=== PATIENT | male | born 1935 | race Caucasian/White ===

== ENCOUNTER → 2016-06-27 | Outpatient (CLI) | payer MEDICARE, BC ==
[2016-04-16 17:10] VITALS: BP 128/68
[~2016-06-27] MED LIST: AMLO2.5T2 PO; ASPI-482 PO; ATOR10TA60 PO; CARB1TAB5 PO; CIPR500S3 PO; LEVO75TA5 PO; PHEN-373 PO
--- NOTE | 2016-06-27 16:22 | CARD ---
APPROVED REPORT EXAM: Two-dimensional and M-mode echocardiogram with Doppler and color Doppler. Other Information Quality : GoodHR: 59bpm Rhythm : NSR INDICATION Cardiac Disease: CAD 2D DIMENSIONS RVDd4.3 (2.9-3.5cm)Left Atrium(2D)4.4 (1.6-4.0cm) IVSd1.0 (0.7-1.1cm)Aortic Root(2D)3.0 (2.0-3.7cm) LVDd5.4 (3.9-5.9cm)LVOT Diameter2.1 (1.8-2.4cm) PWd1.1 (0.7-1.1cm)LVDs4.1 (2.5-4.0cm) FS (%) 24.7 %SV69.2 ml LVEF(%)48.5 (>50%) Aortic Valve AoV Peak Jesus.105.1cm/sAoV VTI21.1cm AO Peak GR.4.4mmHgLVOT Peak Jesus.94.1cm/s LVOT VTI 17.35cmAO Mean GR.3mmHg AMAN (VMAX)2.84jn3ICO (VTI)2.75cm2 Mitral Valve MV E Bwuitnrx27.3cm/sMV DECEL WKFB314rj MV A Iiekiyhl49.8cm/sMV PFT463wy E/A Ratio0.5MV A Yoltyrue298ae MVA (PHT)1.59cm2 TDI E/Lateral E'4.8E/Medial E'7.5 Pulmonary Valve PV Peak Zkioftqj554.4cm/sPV Peak Grad.4mmHg RVOT VTI8.6cm Tricuspid Valve TR P. Hmqnxvls606rr/sRAP NEZZRHNC3whHj TR Peak Gr.93gkGvVWRA86geHf Pulmonary Vein S1 Iudfiqxe17.1cm/sD2 Rvyjzazw38.3cm/s PVa leywljtd264npnc LEFT VENTRICLE The left ventricle is normal size. There is normal left ventricular wall thickness. Left ventricle sy stolic function is low normal. The Ejection Fraction is 45-50%. There is moderate hypokinesis in the basal and mid-inferior wall. Transmitral Doppler flow pattern is Grade I-abnormal relaxation pattern. There is no ventricular septal defect visualized. RIGHT VENTRICLE The right ventricle is normal size. There is normal right ventricular wall thickness. The right ventr icular systolic function is normal. ATRIA The left atrium is mildly dilated. The right atrium size is normal. The interatrial septum is intact with no evidence for an atrial septal defect or patent foramen ovale as noted on 2-D or Doppler imagi ng. AORTIC VALVE The aortic valve is mildly thickened. The aortic valve is trileaflet. Doppler and Color Flow revealed no significant aortic regurgitation. There is no significant aortic valvular stenosis. MITRAL VALVE The mitral valve is normal in structure. There is no evidence of mitral valve prolapse. There is no m itral valve stenosis. Doppler and Color Flow revealed trace mitral regurgitation. TRICUSPID VALVE The tricuspid valve is normal in structure. Doppler and Color Flow revealed mild tricuspid regurgitat ion. There is no pulmonary hypertension. The PA pressure was estimated at 27 mmHg. There is no tricus pid valve stenosis. PULMONIC VALVE The pulmonary valve is normal in structure. Doppler and Color Flow revealed mild pulmonic valvular re gurgitation. There is no pulmonic valvular stenosis. GREAT VESSELS The aortic root is normal in size. The ascending aorta is mildly dilated at 3.54cm. Normal pulmonary venous flow (Doppler). The IVC is normal in size and collapses >50% with inspiration. PERICARDIAL EFFUSION There is no pleural effusion. There is no evidence of significant pericardial effusion. Critical Notification Critical Value: No <Conclusion> There is moderate hypokinesis in the basal and mid-inferior wall. The Ejection Fraction is 45-50%. Transmitral Doppler flow pattern is Grade I-abnormal relaxation pattern. Trace mitral regurgitation. Mild tricuspid regurgitation. The PA pressure was estimated at 27 mmHg. There is no evidence of significant pericardial effusion.
== END | disposition home or self-care (01) ==
LOC: ECHO 10:51
PROVIDERS: ATTEND Internal Medicine Cardiovascular Disease
DX: I25.10 Atherosclerotic heart disease of native coronary artery without angina pectoris (principal); I34.0 Nonrheumatic mitral (valve) insufficiency; I37.1 Nonrheumatic pulmonary valve insufficiency; I07.1 Rheumatic tricuspid insufficiency
CPT/HCPCS: 93306

== ENCOUNTER → 2017-01-02 | Outpatient (CLI) | payer MEDICARE ==
[2016-04-16 17:10] VITALS: BP 128/68
[~2017-01-02] MED LIST changes: -PHEN-373 PO; +PHEN-444 PO; +REGADENOSON 0.4 MG/5 ML DISP.SYRIN. IV ONE
--- NOTE | 2017-01-02 14:11 | RAD ---
APPROVED REPORT Test Type: Pharmacological Stress Nurse/Tech: Pari Yusuf R.N. Test Indications: CAD Cardiac History: CABG,HYPOTENSION, HTN, BIGEMINY, TRIGEMINY Medications: See Electronic Medical Record Medical History: See Electronic Medical Record Resting ECG: SR W/ PAC'S AND PVC'S Resting Heart Rate: 65 bpm Resting Blood Pressure: 141/74mmHg Pretest Chest Pain: No chest pain Nurse/Tech Notes S1S2, LUNGS CTA Consent: The procedure was explained to the patient in lay terms. Informed consent was witnessed. Alejandro eout was entered into [employer]. History and Stress Test performed by KIM Cabrera, MILLICENT (R) (N) Pharm. Details Pharmacologic stress testing was performed using 0.4mg per 5ml of regadenoson given intravenously ove r 7-10 seconds. Stress Symptoms Dyspnea,Dizziness POST EXERCISE Reason for Termination: Infusion complete Max HR: 83 bpm Max Blood Pressure: 151/81mmHg Blood Pressure response to exercise: Abnormal blood pressure response during stress. B/P DROPPED QUIT E A BIT AFTER LEXISCAN GIVEN WHICH CAUSED DIZZINESS Heart Rate response to exercise: WNL Chest Pain: No. Arrhythmia: No. fnot from baseline noted above ST Change: No. INTERPRETATION Stress EKG Conclusion: Baseline EKG showed sinus rhythm with PVCs. Nondiagnostic changes at peak stre ss. No significant arrhythmias. Imaging Protocol IMAGE PROTOCOL: Rest Tc-99m/stress Tc-99m 1 day Rest: Stress: Viability: Radiopharm.Tc99m RgywyjwchCj81u Sestamibi Dose11.1mCi 33.1mCi Duration 15min. 10min. Img Date 01/02/2017 01/02/2017 Inj-Img Xzaf87wpt. 75min. Rest Admin Site:IV - Left ForearmAdministrator:RT Wyatt (R)(N) Stress Admin Site: IV - Left ForearmAdministrator: KIM Cabrera, MILLICENT (R)(N) STRESS DATA End Diast. Vol.123.0mlAv. Heart Rate67.0bpm End Syst. Vol.51.0mlCO Index BSA4.8L/min Myocardial Iwtu145.0gEject. Himsbzlv95.0% Stress Rates Pk. Fill Rate2.08EDV/secLVtime Pk. Fill 81.32msec Pk. Empty Rate2.22ESV/secLVtime Pk. Icztq672.72msec /3 Pk. Fill1.35EDV/sec Stress Scores Regional WT0.00Summed WT14.00 Regional WM0.00Summed WM16.00 LV Perfusion Scintigraphic images showed moderate sized fixed defect involving the base to mid inferior wall consi stent with previous myocardial infarction without any reversibility. Wall Motion Basal inferior wall hypokinesis with ejection fraction calculated at 59%. LV Perf. Quant 17 Seg. SSS10.00 17 Seg. SRS8.00 17 Seg. SDS2.00 Stress Defect Extent (% LAD)0.00Rest Defect Extent (% LAD)0.00Rev. Defect Extent (% LAD)0.00 Stress Defect Extent (% LCX) 27.50Rest Defect Extent (% LCX)23.80Rev. Defect Extent (% LCX)7.50 Stress Defect Extent (% RCA)41.10Rest Defect Extent (% RCA)46.70Rev. Defect Extent (% RCA)0.00 Stress Defect Extent (% SNEHAL)18.00Rest Defect Extent (% SNEHAL)17.00Rev. Defect Extent (% SNEHAL)2.00 Conclusion 1. Regadenoson cardioisotope stress test showed moderate infarct involving the base to mid inferior w all without any significant ischemia. 2. Basal inferior wall hypokinesis with ejection fraction calculated at 59%. 3. Low risk for cardiac events.
== END | disposition home or self-care (01) ==
LOC: NM 08:39
PROVIDERS: ATTEND Internal Medicine Cardiovascular Disease
DX: I25.10 Atherosclerotic heart disease of native coronary artery without angina pectoris (principal); I10 Essential (primary) hypertension; Z95.1 Presence of aortocoronary bypass graft; Z79.01 Long term (current) use of anticoagulants
CPT/HCPCS: 78452; 93017; 96374; 96375; 96376; A9500; J2785

== ENCOUNTER → 2018-01-28 | Outpatient (CLI) | payer MEDICARE ==
[2016-04-16 17:10] VITALS: BP 128/68
[~2018-01-28] MED LIST changes: -REGADENOSON 0.4 MG/5 ML DISP.SYRIN. IV ONE
--- NOTE | 2018-01-28 10:08 | CARD ---
MR#: [id number] Date of Study: 01/28/2018 Ordering Physician: MAGALY OLMOS, Referring Physician: MAGALY OLMOS, Tech: Eboni Basilio APPROVED REPORT EXAM: Two-dimensional and M-mode echocardiogram with Doppler and color Doppler. Other Information Quality : AverageHR: 65bpm INDICATION CAD Parkinsons RISK FACTORS Hyperlipidemia 2D DIMENSIONS RVDd4.1 (2.9-3.5cm)Left Atrium(2D)4.6 (1.6-4.0cm) IVSd1.5 (0.7-1.1cm)Aortic Root(2D)3.0 (2.0-3.7cm) LVDd5.4 (3.9-5.9cm)LVOT Diameter2.4 (1.8-2.4cm) PWd1.1 (0.7-1.1cm)IVSs3.7 (0.8-1.2cm) Aortic Valve AoV Peak Jesus.96.7cm/sAoV VTI14.5cm AO Peak GR.3.7mmHgLVOT Peak Jesus.80.0cm/s LVOT VTI 15.35cmAO Mean GR.2mmHg AMAN (VMAX)2.06gk7ZZO (VTI)4.81cm2 Mitral Valve MV E Qwfyclhl68.0cm/sMV DECEL HXLL388sr MV A Yxualnvq13.3cm/sMV RVG23vu E/A Ratio0.6MVA (PHT)3.09cm2 TDI E/Lateral E'6.6E/Medial E'8.1 Pulmonary Valve PV Peak Pjbavqjc07.4cm/sPV Peak Grad.2mmHg Tricuspid Valve TR P. Jnpamphj184ou/sTR Peak Gr.20mmHg Pulmonary Vein S1 Hilqvgxi69.1cm/sD2 Umfnvpdz64.9cm/s PVa zdybysos542lrxc LEFT VENTRICLE The left ventricle is normal size. There is borderline concentric left ventricular hypertrophy. Base to mid inferior wall hypokinesis. The Ejection Fraction is 50-55%. Transmitral Doppler flow pattern i s Grade I-abnormal relaxation pattern. RIGHT VENTRICLE The right ventricle is normal size. There is normal right ventricular wall thickness. The right ventr icular systolic function is normal. ATRIA The left atrium size is normal. The right atrium size is normal. The interatrial septum is intact wit h no evidence for an atrial septal defect or patent foramen ovale as noted on 2-D or Doppler imaging. AORTIC VALVE The aortic valve is mildly thickened but opens well. Doppler and Color Flow revealed no significant a ortic regurgitation. There is no significant aortic valvular stenosis. MITRAL VALVE The mitral valve is thickened but opens well. There is no mitral valve stenosis. Doppler and Color-fl ow revealed trace mitral regurgitation. TRICUSPID VALVE The tricuspid valve is normal in structure and function. Doppler and Color Flow revealed trace tricus pid regurgitation. There is no tricuspid valve stenosis. PULMONIC VALVE The pulmonic valve is not well visualized. Doppler and Color Flow revealed no pulmonic valvular regur gitation. GREAT VESSELS The aortic root is normal in size. Normal pulmonary venous flow (Doppler). The IVC was not visualized . PERICARDIAL EFFUSION There is no evidence of significant pericardial effusion. Critical Notification Critical Value: No <Conclusion> Base to mid inferior wall hypokinesis. The Ejection Fraction is 50-55%. Transmitral Doppler flow pattern is Grade I-abnormal relaxation pattern. Trace mitral regurgitation. Trace tricuspid regurgitation. There is no evidence of significant pericardial effusion. Signed by : Magaly Olmos, Electronically Approved : 01/28/2018 10:06:32
== END | disposition home or self-care (01) ==
LOC: ECHO 08:39
PROVIDERS: ATTEND Internal Medicine Cardiovascular Disease
DX: I25.10 Atherosclerotic heart disease of native coronary artery without angina pectoris (principal); E78.5 Hyperlipidemia, unspecified
CPT/HCPCS: 93306

== ENCOUNTER 2018-11-10 07:53 | Emergency (ER) | payer MEDICARE ==
[~2018-11-10] VITALS: Ht 185.4 cm; Wt 83.9 kg
[2018-11-10] MEDS: IV NORMAL SALINE 1000ML BAG 1,000 ML IV ONE (08:42)
[2018-11-10 08:58] LABS: BASO % 0 % (0-3); EOS # 0.1 x10^3/uL (0.0-0.7); EOS % 1 % (0-3); HEMATOCRIT 43.3 % (39.0-53.0); HEMOGLOBIN 15.1 g/dL (13.0-17.5); LYMPH # 3.5 x10^3/uL (1.0-4.8); LYMPH % 43 % (24-48); MEAN CORPUSCULAR HEMOGLOBIN 32 pg (25-35); MEAN CORPUSCULAR HGB CONC 35 g/dL (31-37); MEAN CORPUSCULAR VOLUME 92 fL (79-100); MONO # 0.3 x10^3/uL (0.0-1.1); MONO % 4 % (0-9); NEUT # 4.2 x10^3/uL (1.8-7.7); NEUT % 52 % (31-73); PLATELET COUNT 140 x10^3/uL (140-400); RED BLOOD COUNT 4.72 x10^6/uL (4.30-5.70); RED CELL DISTRIBUTION WIDTH 14.5 % (11.5-14.5); WHITE BLOOD COUNT 8.2 x10^3/uL (4.0-11.0)
[2018-11-10 09:03] LABS: BILIRUBIN,URINE SMALL (NEG); CLARITY,URINE CLEAR; COLOR,URINE AMBER; NITRITE,URINE NEGATIVE (NEG); PROTEIN,URINE 100 mg/dL (NEG-TRACE)
[2018-11-10 09:03] LABS: CALCIUM 8.6 mg/dL (8.5-10.1); GFR 71.2; POTASSIUM 3.6 mmol/L (3.5-5.1)
[2018-11-10 09:12] LABS: BACTERIA,URINE MOD /HPF (0-FEW)
[2018-11-10 09:13] LABS: RBC,URINE OCC /HPF (0-2)
--- NOTE | 2018-11-10 12:50 | PHYS DOC ---
Past Medical History Past Medical History: CAD, IBS, Other Additional Past Medical Histor: PROSTATE CANCER, HEART ARRTHYMIAS,MRSA, CDiff, skin cancer, Parkinson's Past Surgical History: Appendectomy, Cholecystectomy, Coronary Bypass Surgery, Pacemaker Additional Past Surgical Histo: pacemaker removal s/p MRSA Alcohol Use: None Drug Use: None Adult General Chief Complaint Chief Complaint: SYNCOPE HPI HPI Patient is a 83 year old m who presents to the ED after syncopal episode. Patient with history of Parkinson's and orthostatic hypotension. Patient with recent hospitalization after syncopal episode. Patient takes midodrine 10mg TID for hypotension. Seen in neurology clinic yesterday at [facility] with normal blood pressures and no complaints. No medication changes. Patient here with complaints of near syncopal episode. Patient complains visco sity felt lightheaded and dizzy. Blood pressure systolic was in the 70s and spouse brought him to the ER. Patient currently denies any symptoms. No nausea, vomiting, diarrhea. No fever. No cough. No dysuria. States that he is feeling better. Patient has some chronic dizziness/lightheadedness at baseline. No chest pain. No palpitations. Review of Systems Review of Systems Constitutional: Denies fever or chills [] Eyes: Denies change in visual acuity, redness, or eye pain [] HENT: Denies nasal congestion or sore throat [] Respiratory: Denies cough or shortness of breath [] Cardiovascular: No chest pain, no palpitations, no LE edema GI: Denies abdominal pain, nausea, vomiting, bloody stools or diarrhea [] : Denies dysuria or hematuria [] Musculoskeletal: Denies back pain or joint pain [] Integument: Denies rash or skin lesions [] Neurologic: Denies headache, focal weakness or sensory changes [] Endocrine: Denies polyuria or polydipsia [] All other systems were reviewed and found to be within normal limits, except as documented in this note. Current Medications Current Medications Current Medications Medications (Trade) Dose Ordered Sig/Erika Start Time Stop Time Status Last Admin Dose Admin Ciprofloxacin (Cipro) 500 mg 1X ONCE 11/10/18 13:00 11/10/18 13:01 DC 11/10/18 13:42 500 MG Sodium Chloride 1,000 ml @ 1,000 mls/hr 1X ONCE 11/10/18 09:00 11/10/18 09:59 DC 11/10/18 08:42 1,000 MLS/HR Allergies Allergies Allergies Coded Allergies Type Severity Reaction Last Updated Verified meperidine Allergy Intermediate 04/16/16 Yes Physical Exam Physical Exam Constitutional: frail, appears stated age, non-toxic appearing HENT: Normocephalic, atraumatic, Eyes: PERRLA, EOMI, Neck: Normal range of motion, no tenderness, supple, no stridor. [] Cardiovascular:Heart rate regular rhythm, no murmur [] Lungs & Thorax: Bilateral breath sounds clear to auscultation [] Abdomen: Bowel sounds normal, soft, no tenderness, no masses, no pulsatile masses. [] Skin: Warm, dry, no erythema, no rash. [] Back: No tenderness, no CVA tenderness. [] Extremities: No tenderness, no cyanosis, no clubbing, ROM intact, no edema. [] Neurologic: Alert and oriented X 3, normal motor function, normal sensory function, no focal deficits noted. mild resting tremor[] Psychologic: Affect normal, judgement normal, mood normal. [] Current Patient Data Vital Signs Vital Signs Date Time Temp Pulse Resp B/P (MAP) Pulse Ox O2 Delivery O2 Flow Rate FiO2 11/10/18 13:20 64 192/100 (130) 92 Room Air 11/10/18 07:54 97.5 18 97.5 Lab Values Laboratory Tests Test 11/10/18 08:40 11/10/18 08:55 11/10/18 11:55 White Blood Count 8.2 x10^3/uL (4.0-11.0) Red Blood Count 4.72 x10^6/uL (4.30-5.70) Hemoglobin 15.1 g/dL (13.0-17.5) Hematocrit 43.3 % (39.0-53.0) Mean Corpuscular Volume 92 fL (79-100) Mean Corpuscular Hemoglobin 32 pg (25-35) Mean Corpuscular Hemoglobin Concent 35 g/dL (31-37) Red Cell Distribution Width 14.5 % (11.5-14.5) Platelet Count 140 x10^3/uL (140-400) Neutrophils (%) (Auto) 52 % (31-73) Lymphocytes (%) (Auto) 43 % (24-48) Monocytes (%) (Auto) 4 % (0-9) Eosinophils (%) (Auto) 1 % (0-3) Basophils (%) (Auto) 0 % (0-3) Neutrophils # (Auto) 4.2 x10^3/uL (1.8-7.7) Lymphocytes # (Auto) 3.5 x10^3/uL (1.0-4.8) Monocytes # (Auto) 0.3 x10^3/uL (0.0-1.1) Eosinophils # (Auto) 0.1 x10^3/uL (0.0-0.7) Basophils # (Auto) 0.0 x10^3/uL (0.0-0.2) Sodium Level 140 mmol/L (136-145) Potassium Level 3.6 mmol/L (3.5-5.1) Chloride Level 104 mmol/L (98-107) Carbon Dioxide Level 28 mmol/L (21-32) Anion Gap 8 (6-14) Blood Urea Nitrogen 14 mg/dL (8-26) Creatinine 1.0 mg/dL (0.7-1.3) Estimated GFR (Cockcroft-Gault) 71.2 Glucose Level 147 mg/dL (70-99) H Calcium Level 8.6 mg/dL (8.5-10.1) Troponin I Quantitative 0.047 ng/mL (0.000-0.055) 0.023 ng/mL (0.000-0.055) Urine Collection Type Void Urine Color Meaghan Urine Clarity Clear Urine pH 6.0 Urine Specific [place] 1.025 Urine Protein 100 mg/dL (NEG-TRACE) Urine Glucose (UA) Negative mg/dL (NEG) Urine Ketones (Stick) 15 mg/dL (NEG) Urine Blood Negative (NEG) Urine Nitrite Negative (NEG) Urine Bilirubin Small (NEG) Urine Urobilinogen Dipstick 1.0 mg/dL (0.2 mg/dL) Urine Leukocyte Esterase Trace (NEG) Urine RBC Occ /HPF (0-2) Urine WBC 1-4 /HPF (0-4) Urine Bacteria Mod /HPF (0-FEW) Urine Mucus Marked /LPF Laboratory Tests 11/10/18 08:40 Laboratory Tests 11/10/18 08:40 EKG EKG 08 27: Normal sinus rhythm call, heart rate 74, no significant ST segment changes, intermittent PVC.[] Radiology/Procedures Radiology/Procedures [] Course & Med Decision Making Course & Med Decision Making Pertinent Labs and Imaging studies reviewed. (See chart for details) []No hypotension for the duration of the ER stay. Patient was given 1 L of IV fluids. Initial troponin slightly elevated but not outside of normal range. This was treated with no acute changes. Patient was ambulatory in the ED without difficulty and felt well. Patient does seem to have a mild urinary tract infection. Will treat with ciprofloxacin. First dose given in the ER. Discussed labs. Discussed supportive care. ER return precautions given. Patient and spouse verbalized understanding. All cushions answered. Dragon Disclaimer Dragon Disclaimer This electronic medical record was generated, in whole or in part, using a voice recognition dictation system. Departure Departure Impression: Primary Impression: Syncope Disposition: 01 HOME, SELF-CARE Condition: STABLE Referrals: MARY CLAY MD (PCP) Patient Instructions: Urinary Tract Infection Additional Instructions: Thank you for coming to [facility]. Please read the attached handouts. Please follow-up with your primary care physician. Return to the ER if your symptoms worsen or you have any other concerns. Take the entire course of antibiotics. Scripts Ciprofloxacin Hcl (CIPROFLOXACIN HCL) 500 Mg Tablet 1 TAB PO BID, #14 TAB Prov: CHECO AGUILAR DO 11/10/18 CHECO AGUILAR DO Nov 10, 2018 12:50
[2018-11-10] MEDS ORDERED: CIPR500T PO (12:57)
[2018-11-10 13:20] VITALS: BP 192/100
[2018-11-10] MEDS: CIPROFLOXACIN HCL 250 MG TABLET. PO ONE (13:42)
--- NOTE | 2018-11-11 14:36 | EKG ---
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[id number] Requested By: CHECO AGUILAR Order Number: [id number] Reading MD: Measurements Intervals [place] Rate: 74 P: 52 VA: 218 QRS: -21 QRSD: 100 T: 111 QT: 418 QTc: 470 Interpretive Statements SINUS RHYTHM COMPLEX(ES) WITH ABERRANT INTRAVENTRICULAR CONDUCTION VENTRICULAR PREMATURE COMPLEX(ES) PROLONGED VA INTERVAL LEFTWARD AXIS INCOMPLETE RIGHT BUNDLE BRANCH BLOCK LVH WITH REPOLARIZATION ABNORMALITY QRS(T) CONTOUR ABNORMALITY CONSIDER ANTEROSEPTAL MYOCARDIAL DAMAGE CONSISTENT WITH INFERIOR INFARCT PROBABLY OLD Compared to ECG 03/22/2016 21:06:38 First degree AV block now present Myocardial infarct finding still present
== END 2018-11-10 13:45 | disposition home or self-care (01) ==
LOC: ER 07:53
DX: R55 Syncope and collapse (principal); R42 Dizziness and giddiness; R54 Age-related physical debility; R25.1 Tremor, unspecified; I25.10 Atherosclerotic heart disease of native coronary artery without angina pectoris; Z90.89 Acquired absence of other organs; Z90.49 Acquired absence of other specified parts of digestive tract; Z95.0 Presence of cardiac pacemaker; Z95.1 Presence of aortocoronary bypass graft; Z88.8 Allergy status to other drugs, medicaments and biological substances
CPT/HCPCS: 36415; 80048; 81001; 84484; 85025; 93005; 96360; 99285; J7030

== ENCOUNTER 2018-11-15 13:15 | Inpatient (IN) | payer MEDICARE ==
[~2018-11-15] VITALS: Ht 185.4 cm; Wt 82.1 kg
[~2018-11-15 13:15] MED LIST changes: +CIPR500T PO
[2018-11-15] MEDS ORDERED: IV NORMAL SALINE 500ML BAG 500 ML IV ONE ×2 (13:45→14:45)
--- NOTE | 2018-11-15 13:46 | PHYS DOC ---
Past Medical History Past Medical History: CAD, IBS, Other Additional Past Medical Histor: PROSTATE CANCER, HEART ARRTHYMIAS,MRSA, CDiff, skin cancer, Parkinson's Past Surgical History: Appendectomy, Cholecystectomy, Coronary Bypass Surgery, Pacemaker Additional Past Surgical Histo: pacemaker removal s/p MRSA Alcohol Use: None Drug Use: None Adult General Chief Complaint Chief Complaint: HYPOTENSION HPI HPI 83-year-old male presents to ER via POV for his 's concerns that he has had increased fatigue and weakness. Patient's Shanon states she checked his blood pressure at home and got a low reading. She reports patient was seen in the ER on 11/10/18 with similar symptoms however over the past few days his symptoms have been worsening. She reports he was started on Cipro for a UTI diagnosed during the ER visit. She reports patient has history of Parkinson's and she states patient's tremors and stuttering have worsened. She denies patient has been confused or had any falls. Patient denies chest pain, shortness of air, or abdominal pain. Patient denies cough or fever. Patient's states he has had decreased appetite. Review of Systems Review of Systems Constitutional: Denies fever or chills. Reports generalized fatigue/weakness and increased tremors/stuttering which he has chronic d/t Parkinson's hx Eyes: Denies change in visual acuity, redness, or eye pain [] HENT: Denies nasal congestion or sore throat [] Respiratory: Denies cough or shortness of breath [] Cardiovascular: Denies CP/palpitations GI: Denies abdominal pain, nausea, vomiting, bloody stools or diarrhea [] : Denies dysuria or hematuria [] Musculoskeletal: Denies back pain or joint pain [] Integument: Denies rash or skin lesions [] Neurologic: Denies headache, focal weakness or sensory changes [] Endocrine: Denies polyuria or polydipsia [] All other systems were reviewed and found to be within normal limits, except as documented in this note. Current Medications Current Medications Current Medications Medications (Trade) Dose Ordered Sig/Erika Start Time Stop Time Status Last Admin Dose Admin Azithromycin 250 ml @ 250 mls/hr 1X ONCE 11/15/18 14:45 11/15/18 15:44 11/15/18 15:19 250 MLS/HR Ceftriaxone Sodium (Rocephin) 1 gm 1X ONCE 11/15/18 14:45 11/15/18 14:46 DC 11/15/18 15:18 1 GM Potassium Chloride/Water 100 ml @ 100 mls/hr Q1H 11/15/18 14:45 11/15/18 18:44 11/15/18 15:17 100 MLS/HR Potassium Chloride (Klor-Con) 40 meq 1X ONCE 11/15/18 14:45 11/15/18 14:46 DC 11/15/18 15:18 40 MEQ Sodium Chloride 500 ml @ 500 mls/hr 1X ONCE 11/15/18 14:45 11/15/18 15:44 11/15/18 15:19 500 MLS/HR Allergies Allergies Allergies Coded Allergies Type Severity Reaction Last Updated Verified meperidine Allergy Intermediate 04/16/16 Yes Physical Exam Physical Exam Constitutional: Well developed, well nourished, no acute distress, non-toxic appearance. Fatigued appearance. Tremors in upper extremities. Clear speech. Facial features symmetric HENT: Normocephalic, atraumatic, bilateral external ears normal, oropharynx moist, no oral exudates, nose normal. [] Eyes: 3mm PERRLA, no nystagmus, conjunctiva normal, no discharge. [] Neck: Normal range of motion, no tenderness, supple, no stridor. [] Cardiovascular: Heart rate regular rhythm, no murmur [] Lungs & Thorax: Bilateral breath sounds clear to auscultation- resp. equal/nonlabored Abdomen: Bowel sounds normal, soft, no tenderness/distention, no masses, no pulsatile masses. [] Skin: Warm, dry, no erythema, no rash. [] Back: No tenderness, no CVA tenderness. [] Extremities: No tenderness, no cyanosis, no clubbing, ROM intact, no edema. 2+ radial bilat. 2+ dorsalis pedis/posterior tibial Neurologic: Alert and oriented X 3, normal motor function, normal sensory function, no focal deficits noted. [] Psychologic: Affect normal, judgement normal, mood normal. [] Current Patient Data Vital Signs Vital Signs Date Time Temp Pulse Resp B/P (MAP) Pulse Ox O2 Delivery O2 Flow Rate FiO2 11/15/18 13:27 97.4 78 16 183/104 (130) 96 Room Air 97.4 Lab Values Laboratory Tests Test 11/15/18 13:29 11/15/18 13:47 White Blood Count 12.4 x10^3/uL (4.0-11.0) H Red Blood Count 5.07 x10^6/uL (4.30-5.70) Hemoglobin 16.0 g/dL (13.0-17.5) Hematocrit 46.0 % (39.0-53.0) Mean Corpuscular Volume 91 fL (79-100) Mean Corpuscular Hemoglobin 32 pg (25-35) Mean Corpuscular Hemoglobin Concent 35 g/dL (31-37) Red Cell Distribution Width 14.1 % (11.5-14.5) Platelet Count 161 x10^3/uL (140-400) Neutrophils (%) (Auto) 50 % (31-73) Lymphocytes (%) (Auto) 44 % (24-48) Monocytes (%) (Auto) 5 % (0-9) Eosinophils (%) (Auto) 1 % (0-3) Basophils (%) (Auto) 0 % (0-3) Neutrophils # (Auto) 6.2 x10^3/uL (1.8-7.7) Lymphocytes # (Auto) 5.5 x10^3/uL (1.0-4.8) H Monocytes # (Auto) 0.6 x10^3/uL (0.0-1.1) Eosinophils # (Auto) 0.1 x10^3/uL (0.0-0.7) Basophils # (Auto) 0.0 x10^3/uL (0.0-0.2) Segmented Neutrophils % 41 % (35-66) Band Neutrophils % 2 % (0-9) Lymphocytes % 53 % (24-48) H Atypical Lymphocytes % (Manual) 2 % (0-0) H Monocytes % 1 % (0-10) Eosinophils % 1 % (0-5) Smudge Cells Present Platelet Estimate Adequate (ADEQUATE) Sodium Level 138 mmol/L (136-145) Potassium Level 2.5 mmol/L (3.5-5.1) *L Chloride Level 99 mmol/L (98-107) Carbon Dioxide Level 26 mmol/L (21-32) Anion Gap 13 (6-14) Blood Urea Nitrogen 11 mg/dL (8-26) Creatinine 1.1 mg/dL (0.7-1.3) Estimated GFR (Cockcroft-Gault) 63.8 BUN/Creatinine Ratio 10 (6-20) Glucose Level 122 mg/dL (70-99) H Lactic Acid Level 3.0 mmol/L (0.4-2.0) H Calcium Level 8.4 mg/dL (8.5-10.1) L Magnesium Level 2.0 mg/dL (1.8-2.4) Total Bilirubin 0.9 mg/dL (0.2-1.0) Aspartate Amino Transferase (AST) 19 U/L (15-37) Alanine Aminotransferase (ALT) 18 U/L (16-63) Alkaline Phosphatase 45 U/L (46-116) L Troponin I Quantitative 0.040 ng/mL (0.000-0.055) Total Protein 6.2 g/dL (6.4-8.2) L Albumin 3.6 g/dL (3.4-5.0) Albumin/Globulin Ratio 1.4 (1.0-1.7) Urine Collection Type Unknown Urine Color Yellow Urine Clarity Clear Urine pH 6.5 Urine Specific [place] 1.010 Urine Protein Negative mg/dL (NEG-TRACE) Urine Glucose (UA) Negative mg/dL (NEG) Urine Ketones (Stick) Negative mg/dL (NEG) Urine Blood Negative (NEG) Urine Nitrite Negative (NEG) Urine Bilirubin Negative (NEG) Urine Urobilinogen Dipstick 0.2 mg/dL (0.2 mg/dL) Urine Leukocyte Esterase Negative (NEG) Urine RBC Occ /HPF (0-2) Urine WBC 0 /HPF (0-4) Urine Bacteria 0 /HPF (0-FEW) Laboratory Tests 11/15/18 13:29 Laboratory Tests 11/15/18 13:29 EKG EKG EKG obtained 11/15/18 at [address] Garcia Sinus rhythm PVCs Ltward axis Rate 76 No STEMI Radiology/Procedures Radiology/Procedures PROCEDURE: CHEST AP ONLY Indication: Weakness TECHNIQUE: Single AP view of the chest COMPARISON: None FINDINGS: CABG changes noted. Heart is normal in size. Lungs are hyperinflated. Patchy opacity in the left lung base. No pneumothorax or pleural effusion. Visualized bony thorax within normal limits. IMPRESSION: COPD changes. Left lung base patchy opacities may be secondary to subsegmental atelectasis or pneumonia. Electronically signed by: Cecilio Georges DO (11/15/2018 2:04 PM) [facility] DICTATED and SIGNED BY: CECILIO GEORGES DO DATE: 11/15/18 1407 Course & Med Decision Making Course & Med Decision Making Pertinent Labs and Imaging studies reviewed. (See chart for details) Patient had been evaluated in the ER for why's concern of hypertensive blood pressure reading at home. Patient has had stable vital signs while in the ER without hypotension. He has been afebrile. Patient had EKG, labs, and chest x- ray obtained. Chest x-ray with left lower lobe pneumonia reported and patient's to be PVCs elevated at 12.4 with 2 bands on differential. Lactic acid elevated at 3.0. Potassium at 2.5. UA unremarkable for infection. Patient had been on Cipro since 11/10/18 when he was evaluated in this ER. Patient had blood cultures obtained and was given 500 mL normal saline bolus. Patient was started on IV Rocephin and azithromycin as his reported he had had no recent hospitalizations in the past 60-90 days. With patient's potassium at 2.5 he was given both oral and IV replacement. EKG with no acute ST elevation or STEMI and troponin was 0.040. Pt has had no change in MS while in ER- he remains fatigued in appearance without focal weakness. Test results and plan of care was discussed with both patient and his . Patient will be admitted to his primary care physician for further care and monitoring. 1510: Spoke with Dr. Hopkins, web content writer for pt's PCP Dr. Meredith and discussed pt's case and admit plan. Pt is being admitted to Telemetry floor for further monitoring/care. Dragon Disclaimer Dragon Disclaimer This electronic medical record was generated, in whole or in part, using a voice recognition dictation system. Departure Departure Impression: Primary Impression: LLL pneumonia Additional Impressions: Hypokalemia Weakness Disposition: ADMITTED INPATIENT Admitting Physician: Iliana Meredith Condition: STABLE Referrals: ILIANA MEREDITH MD (PCP) Problem Qualifiers LINSEY STARK APRN Nov 15, 2018 13:46
[2018-11-15 13:53] LABS: BASO % 0 % (0-3); EOS # 0.1 x10^3/uL (0.0-0.7); EOS % 1 % (0-3); LYMPH # 5.5 x10^3/uL (1.0-4.8); LYMPH % 44 % (24-48); MEAN CORPUSCULAR HEMOGLOBIN 32 pg (25-35); MEAN CORPUSCULAR HGB CONC 35 g/dL (31-37); MEAN CORPUSCULAR VOLUME 91 fL (79-100); MONO # 0.6 x10^3/uL (0.0-1.1); MONO % 5 % (0-9); NEUT # 6.2 x10^3/uL (1.8-7.7); NEUT % 50 % (31-73); PLATELET COUNT 161 x10^3/uL (140-400); RED BLOOD COUNT 5.07 x10^6/uL (4.30-5.70); RED CELL DISTRIBUTION WIDTH 14.1 % (11.5-14.5); WHITE BLOOD COUNT 12.4 x10^3/uL (4.0-11.0)
[2018-11-15 13:56] LABS: BILIRUBIN,URINE NEGATIVE (NEG); COLOR,URINE YELLOW; NITRITE,URINE NEGATIVE (NEG); PH,URINE 6.5; PROTEIN,URINE NEGATIVE (NEG-TRACE); UROBILINOGEN,URINE 0.2 mg/dL (0.2 mg/dL)
[2018-11-15 14:01] LABS: CLARITY,URINE CLEAR
[2018-11-15 14:03] LABS: BACTERIA,URINE 0 /HPF (0-FEW); RBC,URINE OCC /HPF (0-2); WBC,URINE 0 /HPF (0-4)
--- NOTE | 2018-11-15 14:07 | RAD ---
Indication: Weakness TECHNIQUE: Single AP view of the chest COMPARISON: None FINDINGS: CABG changes noted. Heart is normal in size. Lungs are hyperinflated. Patchy opacity in the left lung base. No pneumothorax or pleural effusion. Visualized bony thorax within normal limits. IMPRESSION: COPD changes. Left lung base patchy opacities may be secondary to subsegmental atelectasis or pneumonia. Electronically signed by: Cecilio Georges DO (11/15/2018 2:04 PM) [facility]
[2018-11-15 14:13] LABS: ALBUMIN 3.6 g/dL (3.4-5.0); ALBUMIN/GLOBULIN RATIO 1.4 (1.0-1.7); CALCIUM 8.4 mg/dL (8.5-10.1); CREATININE 1.1 mg/dL (0.7-1.3); GFR 63.8; TOTAL BILIRUBIN 0.9 mg/dL (0.2-1.0); TOTAL PROTEIN 6.2 g/dL (6.4-8.2)
[2018-11-15 14:17] LABS: POTASSIUM 2.5 mmol/L (3.5-5.1)
[2018-11-15] MEDS ORDERED: POTASSIUM CHLORIDE 20 MEQ TABLET.ER. PO ONE (14:45)
[2018-11-15] MEDS ORDERED: AZITHRMYCN 500MG IVPB FOR OMNI 250 ML IV ONE (14:45)
[2018-11-15] MEDS ORDERED: cefTRIAXone IV Push 1 GM VIAL. IVP ONE (14:45)
[2018-11-15 14:46] LABS: % ATYL 2 % (0-0); % BANDS 2 % (0-9); % EOS 1 % (0-5); % LYMPHS 53 % (24-48); % MONOS 1 % (0-10); % SEGS 41 % (35-66); PLT ESTIMATE ADEQUATE (ADEQUATE)
[2018-11-15 14:48] LABS: SMUDGE CELLS PRESENT
[2018-11-15] MEDS: POTASSIUM CHLORIDE 10MEQ 100 ML IV SCH ×3 (15:17→22:19)
[2018-11-15] MEDS ORDERED: ACETAMINOPHEN 325 MG TABLET. PO PRN (15:45)
[2018-11-15 16:48] VITALS: BP 137/80
--- NOTE | 2018-11-15 18:04 | EKG ---
[facility] [address] [place] [address] Test Date: 2018-11-15 Test Time: 13:35:39 Pat Name: LAIREZA RENEE Department: Room: Gender: M Compensation Manager: : [id number] Requested By: LINSEY STARK Order Number: [id number] Reading MD: Measurements Intervals [place] Rate: 76 P: -56 [place]: 130 QRS: -25 QRSD: 104 T: 51 QT: 428 QTc: 486 Interpretive Statements SINUS RHYTHM VENTRICULAR PREMATURE COMPLEX(ES) LEFTWARD AXIS LVH WITH REPOLARIZATION ABNORMALITY QRS(T) CONTOUR ABNORMALITY CONSIDER ANTEROSEPTAL MYOCARDIAL DAMAGE CONSISTENT WITH INFERIOR INFARCT PROBABLY OLD ABNORMAL ECG RI6.01 Unconfirmed report No previous ECG available for comparison
[2018-11-15 19:20] VITALS: BP 170/97
[2018-11-15] MEDS ORDERED: CARB1TAB2 PO (20:06)
[2018-11-15] MEDS ORDERED: MIDO5TAB PO (20:06)
[2018-11-15] MEDS: ATORVASTATIN CALCIUM 10 MG TABLET. PO SCH (22:24)
[2018-11-15] MEDS: CARBIDOPA/LEVODOPA 25/100MG TABLET PO SCH (22:26)
[2018-11-15 23:45] VITALS: BP 145/92
[2018-11-16] MEDS: POTASSIUM CHLORIDE 10MEQ 100 ML IV SCH (02:20)
[2018-11-16 03:30] VITALS: BP 181/105
[2018-11-16 07:00] VITALS: BP 173/101
--- NOTE | 2018-11-16 08:11 | PDOC ---
PROGRESS NOTES Subjective Subjective Patient without complaint. Does report some dry cough recently. Objective Objective Vital Signs Date Time Temp Pulse Resp B/P (MAP) Pulse Ox O2 Delivery O2 Flow Rate FiO2 11/16/18 03:30 98.1 67 18 181/105 (130) 95 Room Air 98.1 Intake and Output 11/16/18 07:00 Intake Total 400 ml Output Total 1225 ml Balance -825 ml Intake Oral 400 ml Output Urine Total 1225 ml # Bowel Movements 1 Physical Exam Abdomen: Normal bowel sounds, Soft, No tenderness Heart: Regular rate Extremities: No edema General: Alert, Oriented X3, No acute distress Lungs: Other (BS mildly decreased throughout, few crackles left base otherwise CTA) Assessment Assessment Problems Medical Problems: (1) Hypokalemia Status: Acute (2) LLL pneumonia Status: Acute (3) Weakness Status: Acute Plan Plan of Care 1. CAP - patient is not hypoxic on RA. CXR did show some atelectasis vs infiltr ate in L base. Continue Rocephin and Zithromax. 2. Parkinson's disease - appears about at baseline although his was concern ed about increased weakness. Will continue his usual Sinemet, PT and OT ordered. 3. hypokalemia - replaced po and IV at admission. Lab from this AM pending, continue replacement if indicated. 4. elevated BP - patient has long history of hypotension and usually takes Midodrine for this. reports his BP seemed low to her yesterday but she does not recall the actual reading. BP has been elevated since admission. Hold Midodrine and follow. 5. hx of possible UTI - patient was tx with Cipro last week from ER visit but no urine culture was done. reports he has completed at least 5 days of tx. Urine at admission was normal. No further tx indicated. 6. hx CAD - stable. 7. hypothyroidism - lab good in office, continue his usual dose of Levothyroxine. Comment Review of Relevant I have reviewed the following items maira (where applicable) has been applied. Labs Laboratory Tests Test 11/15/18 13:29 11/15/18 13:47 11/15/18 17:40 White Blood Count 12.4 x10^3/uL (4.0-11.0) Red Blood Count 5.07 x10^6/uL (4.30-5.70) Hemoglobin 16.0 g/dL (13.0-17.5) Hematocrit 46.0 % (39.0-53.0) Mean Corpuscular Volume 91 fL (79-100) Mean Corpuscular Hemoglobin 32 pg (25-35) Mean Corpuscular Hemoglobin Concent 35 g/dL (31-37) Red Cell Distribution Width 14.1 % (11.5-14.5) Platelet Count 161 x10^3/uL (140-400) Neutrophils (%) (Auto) 50 % (31-73) Lymphocytes (%) (Auto) 44 % (24-48) Monocytes (%) (Auto) 5 % (0-9) Eosinophils (%) (Auto) 1 % (0-3) Basophils (%) (Auto) 0 % (0-3) Neutrophils # (Auto) 6.2 x10^3/uL (1.8-7.7) Lymphocytes # (Auto) 5.5 x10^3/uL (1.0-4.8) Monocytes # (Auto) 0.6 x10^3/uL (0.0-1.1) Eosinophils # (Auto) 0.1 x10^3/uL (0.0-0.7) Basophils # (Auto) 0.0 x10^3/uL (0.0-0.2) Segmented Neutrophils % 41 % (35-66) Band Neutrophils % 2 % (0-9) Lymphocytes % 53 % (24-48) Atypical Lymphocytes % (Manual) 2 % (0-0) Monocytes % 1 % (0-10) Eosinophils % 1 % (0-5) Smudge Cells Present Platelet Estimate Adequate (ADEQUATE) Sodium Level 138 mmol/L (136-145) Potassium Level 2.5 mmol/L (3.5-5.1) Chloride Level 99 mmol/L (98-107) Carbon Dioxide Level 26 mmol/L (21-32) Anion Gap 13 (6-14) Blood Urea Nitrogen 11 mg/dL (8-26) Creatinine 1.1 mg/dL (0.7-1.3) Estimated GFR (Cockcroft-Gault) 63.8 BUN/Creatinine Ratio 10 (6-20) Glucose Level 122 mg/dL (70-99) Lactic Acid Level 3.0 mmol/L (0.4-2.0) 1.6 mmol/L (0.4-2.0) Calcium Level 8.4 mg/dL (8.5-10.1) Magnesium Level 2.0 mg/dL (1.8-2.4) Total Bilirubin 0.9 mg/dL (0.2-1.0) Aspartate Amino Transf (AST/SGOT) 19 U/L (15-37) Alanine Aminotransferase (ALT/SGPT) 18 U/L (16-63) Alkaline Phosphatase 45 U/L (46-116) Troponin I Quantitative 0.040 ng/mL (0.000-0.055) Total Protein 6.2 g/dL (6.4-8.2) Albumin 3.6 g/dL (3.4-5.0) Albumin/Globulin Ratio 1.4 (1.0-1.7) Urine Collection Type Unknown Urine Color Yellow Urine Clarity Clear Urine pH 6.5 Urine Specific [place] 1.010 Urine Protein Negative mg/dL (NEG-TRACE) Urine Glucose (UA) Negative mg/dL (NEG) Urine Ketones (Stick) Negative mg/dL (NEG) Urine Blood Negative (NEG) Urine Nitrite Negative (NEG) Urine Bilirubin Negative (NEG) Urine Urobilinogen Dipstick 0.2 mg/dL (0.2 mg/dL) Urine Leukocyte Esterase Negative (NEG) Urine RBC Occ /HPF (0-2) Urine WBC 0 /HPF (0-4) Urine Bacteria 0 /HPF (0-FEW) Laboratory Tests Test 11/15/18 13:29 11/15/18 13:47 11/15/18 17:40 White Blood Count 12.4 x10^3/uL (4.0-11.0) Red Blood Count 5.07 x10^6/uL (4.30-5.70) Hemoglobin 16.0 g/dL (13.0-17.5) Hematocrit 46.0 % (39.0-53.0) Mean Corpuscular Volume 91 fL (79-100) Mean Corpuscular Hemoglobin 32 pg (25-35) Mean Corpuscular Hemoglobin Concent 35 g/dL (31-37) Red Cell Distribution Width 14.1 % (11.5-14.5) Platelet Count 161 x10^3/uL (140-400) Neutrophils (%) (Auto) 50 % (31-73) Lymphocytes (%) (Auto) 44 % (24-48) Monocytes (%) (Auto) 5 % (0-9) Eosinophils (%) (Auto) 1 % (0-3) Basophils (%) (Auto) 0 % (0-3) Neutrophils # (Auto) 6.2 x10^3/uL (1.8-7.7) Lymphocytes # (Auto) 5.5 x10^3/uL (1.0-4.8) Monocytes # (Auto) 0.6 x10^3/uL (0.0-1.1) Eosinophils # (Auto) 0.1 x10^3/uL (0.0-0.7) Basophils # (Auto) 0.0 x10^3/uL (0.0-0.2) Segmented Neutrophils % 41 % (35-66) Band Neutrophils % 2 % (0-9) Lymphocytes % 53 % (24-48) Atypical Lymphocytes % (Manual) 2 % (0-0) Monocytes % 1 % (0-10) Eosinophils % 1 % (0-5) Smudge Cells Present Platelet Estimate Adequate (ADEQUATE) Sodium Level 138 mmol/L (136-145) Potassium Level 2.5 mmol/L (3.5-5.1) Chloride Level 99 mmol/L (98-107) Carbon Dioxide Level 26 mmol/L (21-32) Anion Gap 13 (6-14) Blood Urea Nitrogen 11 mg/dL (8-26) Creatinine 1.1 mg/dL (0.7-1.3) Estimated GFR (Cockcroft-Gault) 63.8 BUN/Creatinine Ratio 10 (6-20) Glucose Level 122 mg/dL (70-99) Lactic Acid Level 3.0 mmol/L (0.4-2.0) 1.6 mmol/L (0.4-2.0) Calcium Level 8.4 mg/dL (8.5-10.1) Magnesium Level 2.0 mg/dL (1.8-2.4) Total Bilirubin 0.9 mg/dL (0.2-1.0) Aspartate Amino Transf (AST/SGOT) 19 U/L (15-37) Alanine Aminotransferase (ALT/SGPT) 18 U/L (16-63) Alkaline Phosphatase 45 U/L (46-116) Troponin I Quantitative 0.040 ng/mL (0.000-0.055) Total Protein 6.2 g/dL (6.4-8.2) Albumin 3.6 g/dL (3.4-5.0) Albumin/Globulin Ratio 1.4 (1.0-1.7) Urine Collection Type Unknown Urine Color Yellow Urine Clarity Clear Urine pH 6.5 Urine Specific [place] 1.010 Urine Protein Negative mg/dL (NEG-TRACE) Urine Glucose (UA) Negative mg/dL (NEG) Urine Ketones (Stick) Negative mg/dL (NEG) Urine Blood Negative (NEG) Urine Nitrite Negative (NEG) Urine Bilirubin Negative (NEG) Urine Urobilinogen Dipstick 0.2 mg/dL (0.2 mg/dL) Urine Leukocyte Esterase Negative (NEG) Urine RBC Occ /HPF (0-2) Urine WBC 0 /HPF (0-4) Urine Bacteria 0 /HPF (0-FEW) Medications Current Medications Sodium Chloride 500 ml @ 500 mls/hr 1X ONCE IV ; Start 11/15/18 at 13:45; St op 11/15/18 at 14:40; Status DC Ceftriaxone Sodium (Rocephin) 1 gm 1X ONCE IVP Last administered on 11/15/18at 15:18; Start 11/15/18 at 14:45; Stop 11/15/18 at 14:46; Status DC Azithromycin 250 ml @ 250 mls/hr 1X ONCE IV Last administered on 11/15/18at 15:19; Start 11/15/18 at 14:45; Stop 11/15/18 at 15:44; Status DC Potassium Chloride (Klor-Con) 40 meq 1X ONCE PO Last administered on 11/15/18at 15:18; Start 11/15/18 at 14:45; Stop 11/15/18 at 14:46; Status DC Potassium Chloride/Water 100 ml @ 100 mls/hr Q1H IV Last administered on 11/16/18at 02:20; Start 11/15/18 at 14:45; Stop 11/15/18 at 18:44; Status DC Sodium Chloride 500 ml @ 500 mls/hr 1X ONCE IV Last administered on 11/15/18at 15:19; Start 11/15/18 at 14:45; Stop 11/15/18 at 15:44; Status DC Acetaminophen (Tylenol) 650 mg PRN Q4HRS PRN PO FEVER Last administered on 11/16/18at 04:09; Start 11/15/18 at 15:45; Stop 11/16/18 at 15:44 Aspirin (Ecotrin) 81 mg DAILY PO ; Start 11/16/18 at 09:00 Atorvastatin Calcium (Lipitor) 10 mg HS PO Last administered on 11/15/18at 22:24; Start 11/15/18 at 21:00 Carbidopa/Levodopa (Sinemet 25/100) 3 tab TID PO Last administered on 11/15/18at 22:26; Start 11/15/18 at 21:00 Levothyroxine Sodium (Synthroid) 75 mcg DAILY06 PO ; Start 11/16/18 at 06:00 Active Scripts Active Midodrine Hcl 5 Mg Tablet 10 Mg PO TID 30 Days Sinemet 25-100 Mg Tablet (Carbidopa/Levodopa) 1 Each Tablet 3 Tab PO TID 30 Days Reported Phenazopyridine Hcl 200 Mg Tablet 1 Tab PO BID PRN Ciprofloxacin 500 Mg/5 Ml Giovana.mc.rec 500 Mg PO BID 7 Days Levothyroxine Sodium 75 Mcg Tablet 1 Tab PO DAILY Aspir 81 (Aspirin) 81 Mg Tablet. 1 Tab PO DAILY Atorvastatin Calcium 10 Mg Tablet 10 Mg PO HS Vitals/I & O Vital Sign - Last 24 Hours 11/15/18 11/15/18 11/15/18 11/15/18 13:27 13:51 14:21 14:51 Temp 97.4 97.4 Pulse 78 67 70 66 Resp 16 20 15 10 B/P (MAP) 183/104 (130) 159/95 (116) 147/106 (120) 147/81 (103) Pulse Ox 96 96 O2 Delivery Room Air Room Air Room Air Room Air 11/15/18 11/15/18 11/15/18 11/15/18 15:21 16:48 17:00 19:20 Temp 97.4 97.5 97.4 97.5 Pulse 66 61 80 Resp 15 20 20 B/P (MAP) 174/92 (119) 137/80 (99) 170/97 (121) Pulse Ox 96 97 96 O2 Delivery Room Air Room Air Room Air Room Air 11/15/18 11/15/18 11/16/18 20:00 23:45 03:30 Temp 97.6 98.1 97.6 98.1 Pulse 64 67 Resp 18 18 B/P (MAP) 145/92 (109) 181/105 (130) Pulse Ox 94 95 O2 Delivery Room Air Room Air Room Air Intake and Output 11/15/18 11/15/18 11/16/18 15:00 23:00 07:00 Intake Total 300 ml 100 ml Output Total 1225 ml Balance 300 ml -1125 ml MARY CLAY MD Nov 16, 2018 08:11
[2018-11-16] MEDS: LEVOTHYROXINE 75 MCG TABLET PO SCH (09:18)
[2018-11-16] MEDS: ASPIRIN ENTERIC COATED 81 MG TABLET.DR. PO SCH (09:18)
[2018-11-16] MEDS: CARBIDOPA/LEVODOPA 25/100MG TABLET PO SCH ×3 (09:18→22:25)
[2018-11-16 09:26] LABS: BASO % 0 % (0-3); EOS # 0.1 x10^3/uL (0.0-0.7); EOS % 1 % (0-3); HEMATOCRIT 46.2 % (39.0-53.0); HEMOGLOBIN 15.9 g/dL (13.0-17.5); LYMPH # 5.8 x10^3/uL (1.0-4.8); LYMPH % 50 % (24-48); MEAN CORPUSCULAR HEMOGLOBIN 32 pg (25-35); MEAN CORPUSCULAR HGB CONC 35 g/dL (31-37); MEAN CORPUSCULAR VOLUME 92 fL (79-100); MONO # 0.4 x10^3/uL (0.0-1.1); MONO % 3 % (0-9); NEUT # 5.3 x10^3/uL (1.8-7.7); NEUT % 46 % (31-73); PLATELET COUNT 163 x10^3/uL (140-400); RED BLOOD COUNT 5.05 x10^6/uL (4.30-5.70); RED CELL DISTRIBUTION WIDTH 14.5 % (11.5-14.5); WHITE BLOOD COUNT 11.6 x10^3/uL (4.0-11.0)
[2018-11-16 09:55] LABS: ALBUMIN 3.7 g/dL (3.4-5.0); ALBUMIN/GLOBULIN RATIO 1.5 (1.0-1.7); CALCIUM 8.4 mg/dL (8.5-10.1); CREATININE 0.8 mg/dL (0.7-1.3); GFR 92.1; TOTAL BILIRUBIN 0.8 mg/dL (0.2-1.0); TOTAL PROTEIN 6.2 g/dL (6.4-8.2)
[2018-11-16 10:05] LABS: POTASSIUM 2.8 mmol/L (3.5-5.1)
--- NOTE | 2018-11-16 11:13 | HP ---
ADMIT DATE: 11/15/2018 CHIEF COMPLAINT: Fatigue and weakness. HISTORY OF PRESENT ILLNESS: The patient is an 83-year-old male with a history of Parkinson's disease, who was brought to the Emergency Room by his with the above complaint. He had been seen in the Emergency Department at [facility] about 1 week previous to this. At that time, he was diagnosed with a possible urinary tract infection and discharged on Cipro. No urine culture was done. The patient's reported that he had taken at least 5 days of the Cipro and seemed to be doing okay, but then had the onset of unusual fatigue and weakness on the day of admission. She also reported that his blood pressure was low, although she does not recall the actual reading. Initial evaluation in the Emergency Room included a chest x-ray, which showed possible atelectasis versus infiltrate in the left lower lobe. A urinalysis was completely normal. Treatment was started for community-acquired pneumonia and he was admitted for further care. PAST MEDICAL HISTORY: Parkinson's disease, coronary artery disease, chronic hypotension, hyperlipidemia, prostate cancer, hypothyroidism, irritable bowel syndrome, B12 deficiency anemia. PAST SURGICAL HISTORY: Pacemaker placement with subsequent removal, CABG in 1995, colon resection in 1997, cholecystectomy in 2002, appendectomy in 1997, skin cancer removal in 2014. ALLERGIES: THE PATIENT IS ALLERGIC TO DEMEROL. HOME MEDICATIONS: Aspirin 81 mg daily, atorvastatin 10 mg daily, Sinemet 25/100 three tablets t.i.d., ciprofloxacin 500 mg p.o. b.i.d., levothyroxine 75 mcg daily, midodrine 5 mg 2 tablets t.i.d., vitamin B12 injections once monthly. FAMILY HISTORY: Noncontributory. SOCIAL HISTORY: The patient is and lives at home with his . He has a long smoking history, but quit smoking cigarettes in 1981. He does not drink alcohol to excess. REVIEW OF SYSTEMS: The patient has not had fever or chills. He has not had chest pain or palpitations. He has had a mild dry cough recently, but denies shortness of breath with this. He denies abdominal pain, nausea or vomiting. He denies dysuria. PHYSICAL EXAMINATION: GENERAL: The patient is alert and oriented x 3, resting comfortably in bed in no acute distress. HEENT: PERRL, EOMI, sclerae clear. Oropharynx: Mucous membranes moist. NECK: Supple, without lymphadenopathy. CHEST: Breath sounds are mildly decreased throughout. There are a few crackles in the left base, otherwise clear to auscultation. No cough with exam. No wheezing heard. CARDIOVASCULAR: Regular rhythm without murmur. ABDOMEN: Soft, nontender, normoactive bowel sounds are present. EXTREMITIES: Bilateral lower extremities are without edema. ASSESSMENT AND PLAN: 1. Community-acquired pneumonia. The patient is not hypoxic on room air. We will continue treatment with Rocephin and Zithromax for his community-acquired pneumonia. 2. Parkinson's disease. The patient does appear about at his baseline with this. We will continue his usual Sinemet. Physical and occupational therapy have been ordered. 3. Hypokalemia. The patient's potassium was 2.5 yesterday. This was replaced orally and IV. Lab from this morning is pending. We will follow lab and continue replacement if indicated. 4. Elevated blood pressure. The patient has a long history of hypotension, which has required treatment with midodrine. His reports his blood pressure is usually good at home with this with a systolic in the 120s-130s. The patient's blood pressure has been mildly elevated since admission. We will hold his midodrine and follow this. He has a history of orthostatic hypotension, so we will not treat hypertension at this time. 5. History of possible urinary tract infection. No urine culture was done last week. The patient has completed 5 days of Cipro. His urinalysis from this admission is completely normal, no further treatment is presently indicated. 6. History of coronary artery disease. This is stable. 7. Hypothyroidism. The patient's lab has been good in the office. We will continue his usual dose of levothyroxine. MARY CLAY MD DR: KENYON/jewels JOB#: [id number] / [id number] DREA
[2018-11-16 11:34] VITALS: BP 174/94
[2018-11-16] MEDS: POTASSIUM CHLORIDE 20 MEQ TABLET.ER. PO SCH ×3 (12:23→22:25)
[2018-11-16] MEDS: AZITHROMYCIN 250 MG TABLET. PO SCH (14:19)
[2018-11-16] MEDS: cefTRIAXone IV Push 1 GM VIAL. IVP SCH (14:20)
[2018-11-16 15:30] VITALS: BP 163/91
[2018-11-16 19:15] VITALS: BP 184/99
[2018-11-16] MEDS: ATORVASTATIN CALCIUM 10 MG TABLET. PO SCH (22:25)
[2018-11-16] MEDS: LACTOBACILLUS RHAMNOSUS GG 1 CAPSULE. PO SCH (22:25)
[2018-11-16 23:15] VITALS: BP 156/94
[2018-11-17 03:15] VITALS: BP 163/82
[2018-11-17 05:04] LABS: CREATININE 0.8 mg/dL (0.7-1.3); GFR 92.1; POTASSIUM 3.4 mmol/L (3.5-5.1)
[2018-11-17] MEDS: LEVOTHYROXINE 75 MCG TABLET PO SCH (05:22)
[2018-11-17 07:00] VITALS: BP 155/98
--- NOTE | 2018-11-17 08:31 | PDOC ---
PROGRESS NOTES Subjective Subjective Patient states he wants to go home today. Objective Objective Vital Signs Date Time Temp Pulse Resp B/P (MAP) Pulse Ox O2 Delivery O2 Flow Rate FiO2 11/17/18 07:00 98.0 68 20 155/98 (117) 93 Room Air 98.0 Intake and Output 11/17/18 06:59 Intake Total 950 ml Output Total 900 ml Balance 50 ml Intake Oral 950 ml Output Urine Total 900 ml # Voids 1 # Bowel Movements 1 Physical Exam Abdomen: Normal bowel sounds, Soft, No tenderness Heart: Regular rate Extremities: No edema General: Alert (oriented to person and place, time not tested), No acute distress Lungs: Other (scant crackles L base, otherwise CTA) Assessment Assessment Problems Medical Problems: (1) Hypokalemia Status: Acute (2) LLL pneumonia Status: Acute (3) Weakness Status: Acute Plan Plan of Care 1. Pneumonia - improving. No hypoxia. Home today on Doxycycline. 2. hypokalemia - improved with significant amount of po replacement. Home on low dose K+, follow in office. 3. hypertension with hx of hypotension - not requiring his usual Midodrine to maintain BP. will monitor at home and resume Midodrine if needed. 4. Parkinson's disease - stable, continue Sinemet. No PT yesterday due to low K+, should receive today prior to discharge. 5. leukocytosis - mild, improving. Follow as outpatient. Comment Review of Relevant I have reviewed the following items maira (where applicable) has been applied. Labs Laboratory Tests Test 11/15/18 13:29 11/15/18 13:47 11/15/18 17:40 11/16/18 08:15 White Blood Count 12.4 x10^3/uL (4.0-11.0) 11.6 x10^3/uL (4.0-11.0) Red Blood Count 5.07 x10^6/uL (4.30-5.70) 5.05 x10^6/uL (4.30-5.70) Hemoglobin 16.0 g/dL (13.0-17.5) 15.9 g/dL (13.0-17.5) Hematocrit 46.0 % (39.0-53.0) 46.2 % (39.0-53.0) Mean Corpuscular Volume 91 fL (79-100) 92 fL (79-100) Mean Corpuscular Hemoglobin 32 pg (25-35) 32 pg (25-35) Mean Corpuscular Hemoglobin Concent 35 g/dL (31-37) 35 g/dL (31-37) Red Cell Distribution Width 14.1 % (11.5-14.5) 14.5 % (11.5-14.5) Platelet Count 161 x10^3/uL (140-400) 163 x10^3/uL (140-400) Neutrophils (%) (Auto) 50 % (31-73) 46 % (31-73) Lymphocytes (%) (Auto) 44 % (24-48) 50 % (24-48) Monocytes (%) (Auto) 5 % (0-9) 3 % (0-9) Eosinophils (%) (Auto) 1 % (0-3) 1 % (0-3) Basophils (%) (Auto) 0 % (0-3) 0 % (0-3) Neutrophils # (Auto) 6.2 x10^3/uL (1.8-7.7) 5.3 x10^3/uL (1.8-7.7) Lymphocytes # (Auto) 5.5 x10^3/uL (1.0-4.8) 5.8 x10^3/uL (1.0-4.8) Monocytes # (Auto) 0.6 x10^3/uL (0.0-1.1) 0.4 x10^3/uL (0.0-1.1) Eosinophils # (Auto) 0.1 x10^3/uL (0.0-0.7) 0.1 x10^3/uL (0.0-0.7) Basophils # (Auto) 0.0 x10^3/uL (0.0-0.2) 0.0 x10^3/uL (0.0-0.2) Segmented Neutrophils % 41 % (35-66) Band Neutrophils % 2 % (0-9) Lymphocytes % 53 % (24-48) Atypical Lymphocytes % (Manual) 2 % (0-0) Monocytes % 1 % (0-10) Eosinophils % 1 % (0-5) Smudge Cells Present Platelet Estimate Adequate (ADEQUATE) Blood Smear Pathologist Review See separate report Sodium Level 138 mmol/L (136-145) 142 mmol/L (136-145) Potassium Level 2.5 mmol/L (3.5-5.1) 2.8 mmol/L (3.5-5.1) Chloride Level 99 mmol/L (98-107) 105 mmol/L (98-107) Carbon Dioxide Level 26 mmol/L (21-32) 27 mmol/L (21-32) Anion Gap 13 (6-14) 10 (6-14) Blood Urea Nitrogen 11 mg/dL (8-26) 8 mg/dL (8-26) Creatinine 1.1 mg/dL (0.7-1.3) 0.8 mg/dL (0.7-1.3) Estimated GFR (Cockcroft-Gault) 63.8 92.1 BUN/Creatinine Ratio 10 (6-20) 10 (6-20) Glucose Level 122 mg/dL (70-99) 110 mg/dL (70-99) Lactic Acid Level 3.0 mmol/L (0.4-2.0) 1.6 mmol/L (0.4-2.0) Calcium Level 8.4 mg/dL (8.5-10.1) 8.4 mg/dL (8.5-10.1) Magnesium Level 2.0 mg/dL (1.8-2.4) Total Bilirubin 0.9 mg/dL (0.2-1.0) 0.8 mg/dL (0.2-1.0) Aspartate Amino Transf (AST/SGOT) 19 U/L (15-37) 21 U/L (15-37) Alanine Aminotransferase (ALT/SGPT) 18 U/L (16-63) 16 U/L (16-63) Alkaline Phosphatase 45 U/L (46-116) 46 U/L (46-116) Troponin I Quantitative 0.040 ng/mL (0.000-0.055) Total Protein 6.2 g/dL (6.4-8.2) 6.2 g/dL (6.4-8.2) Albumin 3.6 g/dL (3.4-5.0) 3.7 g/dL (3.4-5.0) Albumin/Globulin Ratio 1.4 (1.0-1.7) 1.5 (1.0-1.7) Urine Collection Type Unknown Urine Color Yellow Urine Clarity Clear Urine pH 6.5 Urine Specific [place] 1.010 Urine Protein Negative mg/dL (NEG-TRACE) Urine Glucose (UA) Negative mg/dL (NEG) Urine Ketones (Stick) Negative mg/dL (NEG) Urine Blood Negative (NEG) Urine Nitrite Negative (NEG) Urine Bilirubin Negative (NEG) Urine Urobilinogen Dipstick 0.2 mg/dL (0.2 mg/dL) Urine Leukocyte Esterase Negative (NEG) Urine RBC Occ /HPF (0-2) Urine WBC 0 /HPF (0-4) Urine Bacteria 0 /HPF (0-FEW) Test 11/17/18 03:05 Sodium Level 144 mmol/L (136-145) Potassium Level 3.4 mmol/L (3.5-5.1) Chloride Level 107 mmol/L (98-107) Carbon Dioxide Level 27 mmol/L (21-32) Anion Gap 10 (6-14) Blood Urea Nitrogen 12 mg/dL (8-26) Creatinine 0.8 mg/dL (0.7-1.3) Estimated GFR (Cockcroft-Gault) 92.1 Glucose Level 101 mg/dL (70-99) Calcium Level 8.0 mg/dL (8.5-10.1) Laboratory Tests Test 11/17/18 03:05 Sodium Level 144 mmol/L (136-145) Potassium Level 3.4 mmol/L (3.5-5.1) Chloride Level 107 mmol/L (98-107) Carbon Dioxide Level 27 mmol/L (21-32) Anion Gap 10 (6-14) Blood Urea Nitrogen 12 mg/dL (8-26) Creatinine 0.8 mg/dL (0.7-1.3) Estimated GFR (Cockcroft-Gault) 92.1 Glucose Level 101 mg/dL (70-99) Calcium Level 8.0 mg/dL (8.5-10.1) Microbiology 11/15/18 Blood Culture - Preliminary, Resulted NO GROWTH AFTER 1 DAY Medications Current Medications Sodium Chloride 500 ml @ 500 mls/hr 1X ONCE IV ; Start 11/15/18 at 13:45; Stop 11/15/18 at 14:40; Status DC Ceftriaxone Sodium (Rocephin) 1 gm 1X ONCE IVP Last administered on 11/15/18 15:18; Start 11/15/18 at 14:45; Stop 11/15/18 at 14:46; Status DC Azithromycin 250 ml @ 250 mls/hr 1X ONCE IV Last administered on 11/15/18 15:19; Start 11/15/18 at 14:45; Stop 11/15/18 at 15:44; Status DC Potassium Chloride (Klor-Con) 40 meq 1X ONCE PO Last administered on 11/15/18 15:18; Start 11/15/18 at 14:45; Stop 11/15/18 at 14:46; Status DC Potassium Chloride/Water 100 ml @ 100 mls/hr Q1H IV Last administered on 11/16/18 02:20; Start 11/15/18 at 14:45; Stop 11/15/18 at 18:44; Status DC Sodium Chloride 500 ml @ 500 mls/hr 1X ONCE IV Last administered on 11/15/18 15:19; Start 11/15/18 at 14:45; Stop 11/15/18 at 15:44; Status DC Acetaminophen (Tylenol) 650 mg PRN Q4HRS PRN PO FEVER Last administered on 11/16/18 04:09; Start 11/15/18 at 15:45; Stop 11/16/18 at 15:44; Status DC Aspirin (Ecotrin) 81 mg DAILY PO Last administered on 11/16/18 09:18; Start 11/16/18 at 09:00 Atorvastatin Calcium (Lipitor) 10 mg HS PO Last administered on 11/16/18 22:25; Start 11/15/18 at 21:00 Carbidopa/Levodopa (Sinemet 25/100) 3 tab TID PO Last administered on 11/16/18 22:25; Start 11/15/18 at 21:00 Levothyroxine Sodium (Synthroid) 75 mcg DAILY06 PO Last administered on 11/17/18 05:22; Start 11/16/18 at 06:00 Ceftriaxone Sodium (Rocephin) 1 gm Q24H IVP Last administered on 11/16/18 14:20; Start 11/16/18 at 14:00 Azithromycin (Zithromax) 250 mg DAILY PO Last administered on 11/16/18 14:19; Start 7/22/19 at 14:00 Potassium Chloride (Klor-Con) 20 meq TID PO Last administered on 11/16/18at 22:25; Start 11/16/18 at 11:00 Lactobacillus Rhamnosus (Culturelle) 1 cap BID PO Last administered on 11/16/18at 22:25; Start 11/16/18 at 21:00 Active Scripts Active Midodrine Hcl 5 Mg Tablet 10 Mg PO TID 30 Days Sinemet 25-100 Mg Tablet (Carbidopa/Levodopa) 1 Each Tablet 3 Tab PO TID 30 Days Reported Phenazopyridine Hcl 200 Mg Tablet 1 Tab PO BID PRN Ciprofloxacin 500 Mg/5 Ml Giovana.mc.rec 500 Mg PO BID 7 Days Levothyroxine Sodium 75 Mcg Tablet 1 Tab PO DAILY Aspir 81 (Aspirin) 81 Mg Tablet.dr 1 Tab PO DAILY Atorvastatin Calcium 10 Mg Tablet 10 Mg PO HS Vitals/I & O Vital Sign - Last 24 Hours 11/16/18 11/16/18 11/16/18 11/16/18 11:34 15:30 19:15 20:30 Temp 97.4 98.0 97.5 97.4 98.0 97.5 Pulse 68 71 68 Resp 18 16 18 B/P (MAP) 174/94 (120) 163/91 (115) 184/99 (127) Pulse Ox 97 94 96 O2 Delivery Room Air Room Air Room Air Room Air 11/16/18 11/17/18 11/17/18 23:15 03:15 07:00 Temp 97.6 98.1 98.0 97.6 98.1 98.0 Pulse 65 71 68 Resp 18 18 20 B/P (MAP) 156/94 (114) 163/82 (109) 155/98 (117) Pulse Ox 93 94 93 O2 Delivery Room Air Room Air Room Air Intake and Output0 11/16/18 11/16/18 11/17/18 14:59 22:59 06:59 Intake Total 400 ml 250 ml 300 ml Output Total 400 ml 500 ml Balance 0 ml 250 ml -200 ml MARY CLAY MD Nov 17, 2018 08:31
[2018-11-17] MEDS ORDERED: POTA10TA12 PO (08:35)
[2018-11-17] MEDS ORDERED: DOXY100C2 PO (08:37)
--- NOTE | 2018-11-17 09:03 | DS ---
DATE OF DISCHARGE: 11/17/2018 CHIEF COMPLAINT: Fatigue and weakness. HISTORY OF PRESENT ILLNESS: The patient is an 83-year-old male with a history of Parkinson's disease, who was brought to the Emergency Room by his with the above complaint. He had been seen in the Emergency Department at [facility] about 1 week previous to this. At that time, he was diagnosed with a possible urinary tract infection and discharged on Cipro. No urine culture was done. The patient's reported that he had taken at least 5 days of the Cipro and seemed to be doing okay, but then had the onset of unusual fatigue and weakness on the day of admission. She also reported that his blood pressure was low, although she does not recall the actual reading. Initial evaluation in the Emergency Room included a chest x-ray, which showed possible atelectasis versus infiltrate in the left lower lobe. A urinalysis was completely normal. Treatment was started for community-acquired pneumonia and he was admitted for further care. HOSPITAL COURSE: The patient remained afebrile during his hospital stay. He was not hypoxic on room air. He was treated with several days of azithromycin and Rocephin for his apparent community-acquired pneumonia. The patient reports that he feels better and is ready to return home today. His states that he does seem somewhat improved and she is comfortable resuming his care at home. He will be discharged home on doxycycline to complete 7 days of treatment. The patient was significantly hypokalemic at admission with a potassium of 2.5. This was replaced IV and orally. Lab today is 3.4. He will be discharged home on a low dose of potassium to take daily and this will be rechecked in our office. The patient has a history of low blood pressure and orthostatic hypotension consistent with his Parkinson's disease. He normally takes midodrine at home to help with this. His blood pressure was somewhat elevated during his hospital stay, so his midodrine was held. His will continue to check his blood pressure at home and resume the midodrine if needed. The patient's other chronic medical conditions including coronary artery disease and hypothyroidism remained stable with his usual medication. He had a mild leukocytosis on lab. Initial white count of 12.4, which is improved to 11.6 today and this will also be followed as an outpatient. The pathology comment on his admission blood count stated that his leukocytosis was predominantly small lymphocytes with several reactive lymphocytes and smudge cells noted. The possibility of an early chronic lymphoproliferative disorder such as CLL was mentioned, this will be followed as an outpatient. The patient does not have a history of chronic leukocytosis. FINAL DIAGNOSES: 1. Community-acquired pneumonia without hypoxia. 2. Hypokalemia. 3. Elevated blood pressure with a history of hypotension. 4. Parkinson's disease. 5. Mild leukocytosis. 6. Hypothyroidism. DISCHARGE MEDICATIONS: Doxycycline 100 mg b.i.d. x 4 days and then discontinue, potassium chloride 10 mEq daily, aspirin 81 mg daily, atorvastatin 10 mg daily, Sinemet 25/100 three tabs t.i.d., levothyroxine 75 mcg daily, midodrine 5 mg 2 tablets t.i.d. p.r.n. hypotension. FOLLOWUP: With Dr. Meredith within 2 weeks. MARY MEREDITH MD DR: KENYON/jewels JOB#: [id number] / [id number] DREA
[2018-11-17] MEDS: AZITHROMYCIN 250 MG TABLET. PO SCH (09:19)
[2018-11-17] MEDS: LACTOBACILLUS RHAMNOSUS GG 1 CAPSULE. PO SCH (09:21)
[2018-11-17] MEDS: ASPIRIN ENTERIC COATED 81 MG TABLET.DR. PO SCH (09:21)
[2018-11-17] MEDS: POTASSIUM CHLORIDE 20 MEQ TABLET.ER. PO SCH ×2 (09:21→13:32)
[2018-11-17] MEDS: CARBIDOPA/LEVODOPA 25/100MG TABLET PO SCH ×2 (09:22→13:32)
[2018-11-17 11:00] VITALS: BP 141/75
[2018-11-17] MEDS: cefTRIAXone IV Push 1 GM VIAL. IVP SCH (13:29)
--- NOTE | 2018-11-17 14:36 | NUR ---
Discharge Note: ALIREZA RENEE [address] [place] [address] Discharge instructions and discharge home medications reviewed with Patient and a copy given. All questions have been answered and understanding verbalized. The following instructions and handouts were given: follow up instructions, medication list, and activity levels. Discontinued lines and drains: Peripheral IV discontinued and catheter intact. Patient discharged to Home or Self Care with Spouse via Wheelchair
== END 2018-11-17 14:00 | disposition home or self-care (01) | DRG 640 ==
LOC: ER 13:15 → 6 SOUTH 15:05
PROVIDERS: ADMIT Family Medicine; ATTEND Family Medicine
DX: E87.6 Hypokalemia (principal); J18.1 Lobar pneumonia, unspecified organism; E03.9 Hypothyroidism, unspecified; E78.5 Hyperlipidemia, unspecified; G20 Parkinson's disease; I25.10 Atherosclerotic heart disease of native coronary artery without angina pectoris; I10 Essential (primary) hypertension; K58.9 Irritable bowel syndrome, unspecified; Z85.46 Personal history of malignant neoplasm of prostate; Z85.828 Personal history of other malignant neoplasm of skin; Z86.14 Personal history of Methicillin resistant Staphylococcus aureus infection; Z87.891 Personal history of nicotine dependence; Z90.49 Acquired absence of other specified parts of digestive tract; Z95.0 Presence of cardiac pacemaker; Z95.1 Presence of aortocoronary bypass graft; Z88.8 Allergy status to other drugs, medicaments and biological substances
CPT/HCPCS: 36415; 71045; 80048; 80053; 81001; 83605; 83735; 84484; 85007; 85025; 87040; 93005; 96365; 96375; J0456; J0696; J3480; J7040; Q0144; 97110; 99285-25

== ENCOUNTER 2019-05-26 04:16 | Inpatient (IN) | payer MEDICARE ==
[~2019-05-26] VITALS: Ht 185.4 cm; Wt 78.5 kg
[2019-05-26] VITALS (13 sets, daily range): BP systolic 131–168; BP diastolic 48–96
[~2019-05-26 04:16] MED LIST changes: +CARB1TAB2 PO; +CARB1TAB22 PO; +CYAN10002 IM; +DICY10CA3 PO; +DOXY100C2 PO; +FLUD0.1T PO; +HYDR-2868 PO; +L.AC1CAP10 PO; +LOPE2TAB27 PO; +MIDO5TAB4 PO; +POTA10TA12 PO; +POTA20TA4 PO; +PSYL0.5215 PO; +SPIR25TA5 PO; +VIT1TABL34 PO
--- NOTE | 2019-05-26 04:29 | PHYS DOC ---
Past Medical History Past Medical History: CAD, IBS, UTI, Other Additional Past Medical Histor: PROSTATE CANCER, HEART ARRTHYMIAS,MRSA, CDiff, skin cancer, Parkinson's Past Surgical History: Appendectomy, Cholecystectomy, Coronary Bypass Surgery, Pacemaker Additional Past Surgical Histo: pacemaker removal s/p MRSA Alcohol Use: None Drug Use: None Adult General Chief Complaint Chief Complaint: MECHANICAL FALL HPI HPI 83yo male presents to the ER with complaints of fall. Patient with history of parkinson's disease. is not present at this time. Unknown if patient had LOC. Patient has no obvious injury on exam. Patient very hard of hearing. No obvious deformity noted. Unable to complete full review of systems given patient's hard of hearing/parkinson baseline All other ROS negative unless documented in HPI Review of Systems Review of Systems See Above Current Medications Current Medications Current Medications Medications (Trade) Dose Ordered Sig/Erika Start Time Stop Time Status Last Admin Dose Admin Sodium Chloride 1,000 ml @ 1,000 mls/hr Q1H 05/26/19 04:30 05/26/19 05:29 DC 05/26/19 04:52 1,000 MLS/HR Allergies Allergies Physical Exam Physical Exam See Above Constitutional: Well developed, well nourished, no acute distress, non-toxic appearance. [] HENT: Normocephalic, atraumatic, bilateral external ears normal, oropharynx m oist, no oral exudates, nose normal. [] Eyes: PERRLA, EOMI, conjunctiva normal, no discharge. [] Neck: Normal range of motion, no tenderness, supple, no stridor. [] Cardiovascular:Heart rate regular rhythm, no murmur [] Lungs & Thorax: Bilateral breath sounds clear to auscultation [] Abdomen: Bowel sounds normal, soft, no tenderness, no masses, no pulsatile masses. [] Skin: Warm, dry, no erythema, no rash. [] Back: No tenderness, no CVA tenderness. [] Extremities: No tenderness, no edema. [] Neurologic: Alert and oriented X 2, no focal deficits noted. [] Psychologic: Affect normal, judgement normal, mood normal. [] Current Patient Data Vital Signs Vital Signs Date Time Temp Pulse Resp B/P (MAP) Pulse Ox O2 Delivery O2 Flow Rate FiO2 05/26/19 05:16 85 20 97 05/26/19 04:24 98.4 155/91 (112) Room Air 98.4 Lab Values Laboratory Tests Test 05/26/19 04:45 White Blood Count 10.9 x10^3/uL (4.0-11.0) Red Blood Count 5.11 x10^6/uL (4.30-5.70) Hemoglobin 16.0 g/dL (13.0-17.5) Hematocrit 46.6 % (39.0-53.0) Mean Corpuscular Volume 91 fL (79-100) Mean Corpuscular Hemoglobin 31 pg (25-35) Mean Corpuscular Hemoglobin Concent 34 g/dL (31-37) Red Cell Distribution Width 14.2 % (11.5-14.5) Platelet Count 170 x10^3/uL (140-400) Neutrophils (%) (Auto) 53 % (31-73) Lymphocytes (%) (Auto) 39 % (24-48) Monocytes (%) (Auto) 5 % (0-9) Eosinophils (%) (Auto) 2 % (0-3) Basophils (%) (Auto) 0 % (0-3) Neutrophils # (Auto) 5.8 x10^3/uL (1.8-7.7) Lymphocytes # (Auto) 4.3 x10^3/uL (1.0-4.8) Monocytes # (Auto) 0.5 x10^3/uL (0.0-1.1) Eosinophils # (Auto) 0.3 x10^3/uL (0.0-0.7) Basophils # (Auto) 0.0 x10^3/uL (0.0-0.2) Prothrombin Time 13.5 SEC (11.7-14.0) Prothrombin Time INR 1.1 (0.8-1.1) Sodium Level 143 mmol/L (136-145) Potassium Level 3.4 mmol/L (3.5-5.1) L Chloride Level 105 mmol/L (98-107) Carbon Dioxide Level 27 mmol/L (21-32) Anion Gap 11 (6-14) Blood Urea Nitrogen 10 mg/dL (8-26) Creatinine 0.9 mg/dL (0.7-1.3) Estimated GFR (Cockcroft-Gault) 80.4 BUN/Creatinine Ratio 11 (6-20) Glucose Level 115 mg/dL (70-99) H Calcium Level 8.8 mg/dL (8.5-10.1) Total Bilirubin 1.1 mg/dL (0.2-1.0) H Aspartate Amino Transferase (AST) 21 U/L (15-37) Alanine Aminotransferase (ALT) 23 U/L (16-63) Alkaline Phosphatase 56 U/L (46-116) Total Protein 6.4 g/dL (6.4-8.2) Albumin 3.8 g/dL (3.4-5.0) Albumin/Globulin Ratio 1.5 (1.0-1.7) Laboratory Tests 05/26/19 04:45 Laboratory Tests 05/26/19 04:45 EKG EKG [] Radiology/Procedures Radiology/Procedures [facility] [address] [place] [address] IMAGING REPORT Signed PATIENT: ALIREZA RENEE ACCOUNT: [id number] : 1935 LOCATION: ER AGE: 83 SEX: M EXAM STATUS: REG ER ORD. PHYSICIAN: REGIS ESCOBAR MD REASON: fall, unknow LOC PROCEDURE: CT HEAD WO CONTRAST EXAM: CT Head without IV contrast CLINICAL HISTORY: Fall COMPARISON: 12/28/2015 TECHNIQUE: Routine CT of the head without contrast. Soft tissues and bone windows were reviewed. PQRS compliance statement - One or more of the following individualized dose reduction techniques were utilized for this study: 1. Automated exposure control 2. Adjustment of the mA and/or kV according to patient size 3. Use of iterative reconstruction technique FINDINGS: Findings of prominent left subdural hematoma is seen measuring 3.2 cm in thickness. In addition there is approximately 14 mm left to right midline shift. Basilar cisterns are grossly preserved. Lara-white differentiation is maintained with no evidence of edema. The cerebellum and brainstem are unremarkable. The calvarium demonstrates no evidence of fracture or focal lesion. There is normal aeration of the visualized paranasal sinuses and mastoid air cells. The visualized portions of the orbits are normal. IMPRESSION: Acute left subdural hematoma measuring 3.2 cm in thickness and approximately 14 mm left to right subfalcine herniation. Findings discussed with REGIS ESCOBAR at 05/26/2019 5:19 AM. FOR INTERNAL CODING PURPOSES RESULT CODE: (C) Electronically signed by: Ravi Cortez MD (05/26/2019 5:21 AM) [facility] DICTATED and SIGNED BY: RAVI CORTEZ MD DATE: 05/26/19 0521 [] Course & Med Decision Making Course & Med Decision Making Pertinent Labs and Imaging studies reviewed. (See chart for details) [] 83yo male presents to the ER with complaints of fall. Patient with history of parkinson's disease. is not present at this time. Unknown if patient had LOC. Patient has no obvious injury on exam. Patient very hard of hearing. No obvious deformity noted. Unable to complete full review of systems given patient's hard of hearing. Labs/Imaging reviewed CT findings with SDH left to right shift 14mm Keep SBP 140 - 160 systolically Discussed with Neurosurgery (Alfreda) will admit to ICU Admit to Hospitalist Discussed findings with patient's family No blood thinning medications aside from ASA Cardene drip initiated given elevated BP Dragon Disclaimer Dragon Disclaimer This electronic medical record was generated, in whole or in part, using a voice recognition dictation system. Departure Departure Impression: Primary Impression: Subdural hematoma Additional Impression: Accelerated hypertension Disposition: 09 ADMITTED INPATIENT Admitting Physician: MICHEL Condition: GUARDED Referrals: MARY CLAY MD (PCP) Critical Care Time Critical care time was 35 minutes exclusive of procedures. Problem Qualifiers REGIS ESCOBAR MD May 26, 2019 04:29
[2019-05-26] MEDS ORDERED: IV NORMAL SALINE 1000ML BAG 1,000 ML IV SCH (04:30)
[2019-05-26 05:01] LABS: BASO % 0 % (0-3); EOS # 0.3 x10^3/uL (0.0-0.7); EOS % 2 % (0-3); HEMATOCRIT 46.6 % (39.0-53.0); LYMPH # 4.3 x10^3/uL (1.0-4.8); LYMPH % 39 % (24-48); MEAN CORPUSCULAR HEMOGLOBIN 31 pg (25-35); MEAN CORPUSCULAR HGB CONC 34 g/dL (31-37); MEAN CORPUSCULAR VOLUME 91 fL (79-100); MONO # 0.5 x10^3/uL (0.0-1.1); MONO % 5 % (0-9); NEUT # 5.8 x10^3/uL (1.8-7.7); NEUT % 53 % (31-73); PLATELET COUNT 170 x10^3/uL (140-400); RED BLOOD COUNT 5.11 x10^6/uL (4.30-5.70); RED CELL DISTRIBUTION WIDTH 14.2 % (11.5-14.5); WHITE BLOOD COUNT 10.9 x10^3/uL (4.0-11.0)
[2019-05-26 05:08] LABS: CALCIUM 8.8 mg/dL (8.5-10.1); CREATININE 0.9 mg/dL (0.7-1.3); GFR 80.4; POTASSIUM 3.4 mmol/L (3.5-5.1)
[2019-05-26 05:14] LABS: ALBUMIN 3.8 g/dL (3.4-5.0); ALBUMIN/GLOBULIN RATIO 1.5 (1.0-1.7); TOTAL BILIRUBIN 1.1 mg/dL (0.2-1.0); TOTAL PROTEIN 6.4 g/dL (6.4-8.2)
--- NOTE | 2019-05-26 05:24 | RAD ---
EXAM: CT Head without IV contrast CLINICAL HISTORY: Fall COMPARISON: 12/28/2015 TECHNIQUE: Routine CT of the head without contrast. Soft tissues and bone windows were reviewed. PQRS compliance statement - One or more of the following individualized dose reduction techniques were utilized for this study: 1. Automated exposure control 2. Adjustment of the mA and/or kV according to patient size 3. Use of iterative reconstruction technique FINDINGS: Findings of prominent left subdural hematoma is seen measuring 3.2 cm in thickness. In addition there is approximately 14 mm left to right midline shift. Basilar cisterns are grossly preserved. Lara-white differentiation is maintained with no evidence of edema. The cerebellum and brainstem are unremarkable. The calvarium demonstrates no evidence of fracture or focal lesion. There is normal aeration of the visualized paranasal sinuses and mastoid air cells. The visualized portions of the orbits are normal. IMPRESSION: Acute left subdural hematoma measuring 3.2 cm in thickness and approximately 14 mm left to right subfalcine herniation. Findings discussed with REGIS ESCOBAR at 05/26/2019 5:19 AM. FOR INTERNAL CODING PURPOSES RESULT CODE: (C) Electronically signed by: Ravi Acharya MD (05/26/2019 5:21 AM) [facility]
[2019-05-26 05:35] LABS: PROTHROMBIN TIME PATIENT 13.5 SEC (11.7-14.0)
[2019-05-26] MEDS ORDERED: LABETALOL 20 MG/4 ML DISP.SYRIN. IVP ONE (05:45)
[2019-05-26] MEDS ORDERED: ONDANSETRON PF 4 MG/2 ML VIAL. IV PRN ×2 (05:45→08:30)
--- NOTE | 2019-05-26 06:45 | EKG ---
[facility] [address] [place] [address] Test Date: 2019-05-26 Test Time: 05:37:12 Pat Name: ALIREZA RENEE Department: Room: Gender: M [employer]: : 1935 Requested By: REGIS ESCOBAR Order Number: [id number] Reading MD: Measurements Intervals [place] Rate: 85 P: UT: QRS: -20 QRSD: 106 T: 41 QT: 394 QTc: 474 Interpretive Statements SINUS RHYTHM VENTRICULAR PREMATURE COMPLEX(ES) LEFTWARD AXIS QRS(T) CONTOUR ABNORMALITY CONSISTENT WITH INFERIOR INFARCT PROBABLY OLD ABNORMAL ECG No previous ECG available for comparison
[2019-05-26] MEDS ORDERED: BUPIVACAINE-EPI 0.5%-1:200000 MPF 30 ML VIAL. ONE (07:17)
[2019-05-26] MEDS ORDERED: GELATIN SPONGE SIZE 100. ONE (07:17)
[2019-05-26] MEDS ORDERED: THROMBIN TOPICAL 20,000 UNIT SPRAY.SYRN KIT TP ONE (07:18)
[2019-05-26] MEDS ORDERED: SURGICEL HEMOSTAT 4X8 EACH. ONE (07:18)
[2019-05-26] MEDS ORDERED: fentaNYL PF VIAL 100 MCG/2 ML VIAL ONE ×2 (07:19→10:12)
[2019-05-26] MEDS ORDERED: DEXAMETHASONE SOD PHOS 20 MG/5 ML VIAL. ONE (07:19)
[2019-05-26] MEDS ORDERED: PROPOFOL 20 ML IV ONE (07:19)
[2019-05-26] MEDS ORDERED: ONDANSETRON PF 4 MG/2 ML VIAL. ONE (07:20)
[2019-05-26] MEDS ORDERED: LIDOCAINE 2% PF 5 ML VIAL. ONE (07:20)
[2019-05-26] MEDS ORDERED: DESFLURANE 61 TO 120 MINUTES IH ONE (07:21)
[2019-05-26] MEDS ORDERED: PHENYLEPHRINE in 0.9% NACL PF 1 MG/10 ML SYRINGE. IV ONE (07:21)
[2019-05-26] MEDS ORDERED: BACITRACIN 50,000 UNIT in IV NORMAL SALINE 1000ML BAG 1,000 ML IRR ONE (08:00)
[2019-05-26] MEDS ORDERED: MANNITOL 25% 12.5 G/50 ML VIAL FOR OR. ONE (08:11)
[2019-05-26] MEDS ORDERED: IV RINGERS,LACTATED 1000ML 1,000 ML IV SCH (08:28)
[2019-05-26] MEDS ORDERED: MORPHINE SULFATE 2 MG/ML VIAL. IV PRN ×2 (08:30→10:15)
[2019-05-26] MEDS ORDERED: PROCHLORPERAZINE 10 MG/2 ML VIAL. IV PRN (08:30)
[2019-05-26] MEDS ORDERED: fentaNYL PF VIAL 100 MCG/2 ML VIAL IV PRN (08:30)
[2019-05-26] MEDS ORDERED: HYDROmorphone 2 MG/ML VIAL IV PRN (08:30)
[2019-05-26] MEDS ORDERED: ROCURONIUM 50 MG/5 ML VIAL. ONE (09:32)
[2019-05-26] MEDS ORDERED: NEOSTIGMINE METHYLSULFATE 5 MG/5 ML SYRINGE. ONE (09:32)
[2019-05-26] MEDS ORDERED: GLYCOPYRROLATE 1 MG/5 ML VIAL. ONE (09:32)
[2019-05-26] MEDS ORDERED: 0.9 % SODIUM CHLORIDE 10 ML DISP.SYRIN. IV PRN (10:00)
[2019-05-26] MEDS ORDERED: DEXTROSE 50% 25 GM / 50ML DISP.SYRIN. IV PRN (10:00)
[2019-05-26] MEDS ORDERED: CALCIUM CARBONATE 500 MG TAB.CHEW PO PRN (10:00)
[2019-05-26] MEDS ORDERED: IV DEXTROSE 5% 250 ML BAG. IV PRN (10:00)
[2019-05-26] MEDS ORDERED: MAG HYDROX/ALUMINUM HYD/SIMETH 30 ML ORAL.SUSP PO PRN (10:00)
[2019-05-26] MEDS ORDERED: HYDROcodone/APAP 5/325MG 1 TAB TABLET PO PRN (10:00)
[2019-05-26] MEDS ORDERED: FLUD0.1T PO (11:15)
--- NOTE | 2019-05-26 11:16 | OP ---
DATE OF SURGERY: 05/26/2019 PREOPERATIVE DIAGNOSIS: Large left convexity acute and chronic subdural hematoma. 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 OPERATION PERFORMED: Left central craniotomy with evacuation of subdural hematoma and placement of subdural drain. SURGEON: Bernardino Mitchell M.D. AUTOMOTIVE MANAGER: SONY Dunn assisted with the surgery. She assisted with the exposure, the removal of subdural, as well as closure. OPERATIVE INDICATIONS: The patient is a pleasant 83-year-old man who has had difficulty for some time with dementia and Parkinson disease and it has become more and more difficult to manage. In the early hours of the morning, he fell and was brought to the Emergency Room and found to have a large acute and chronic subdural hematoma. He would respond and moved all 4 extremities and we made arrangements to perform urgent craniotomy. I spoke with his who understood the surgery and risks and wished for us to go ahead. DESCRIPTION OF PROCEDURE: Following general endotracheal anesthesia, the patient was positioned supine on the operating room table, a roll under the left shoulder, head turned to the right and then we positioned the bed to bring the left lateral frontal region uppermost. He was clipped, prepped, and draped in standard fashion. SILVIA hose and AV impulse boots were applied for DVT prophylaxis. Ancef 2 gram was given less than 1 hour prior to initiation of the surgery. A linear incision was made over the left frontotemporal parietal region. I opened down to the bone and placed Jane clips. I then used the Bovie to incise the periosteum. We stripped this back and placed self-retaining retractors. I brought in the acorn bit and placed 2 linda holes and then used the craniotome to develop a bone flap which was removed. The dura was opened in a cruciate fashion. There were two separate compartments, one with more acute blood and one with more chronic blood and I evacuated these. I placed a 7 mm flat fully perforated drain. I brought it out through a stab incision well. I irrigated copiously with warmed saline. As I worked the effluent from the irrigation, it became clear and clearer. I closed the dura and placed Duragen over the top. I replaced the bone with an opening in the bone for the drain and brought the drain out through a separate stab incision. I used microplates to secure the bone flap and then closed the wound in layers with absorbable suture and the skin with skin anya. The operation went very well. I was quite pleased with the surgery. BERNARDINO MITCHELL MD DR: Moon JOB#: [id number] / [id number] DREA
[2019-05-26] MEDS ORDERED: VIT1TABL34 PO (11:18)
[2019-05-26] MEDS: fentaNYL PF VIAL 100 MCG/2 ML VIAL IV PRN ×3 (11:20→12:25)
[2019-05-26] MEDS ORDERED: MIDAZOLAM HCL/PF 2 MG/2 ML VIAL. ONE (14:08)
--- NOTE | 2019-05-26 14:38 | NUR ---
Patient found to have BEENA drain pulled out and blood on sheets and pillow. Parris SALVADOR notified and orders received.
--- NOTE | 2019-05-26 14:38 | PDOC1 ---
History and Physical Date of Admission: Date of Admission DATE: 05/26/19 TIME: 14:29 Chief Complaint: Problems: (1) History of cardiac monitoring (2) GI bleed (3) Altered mental status (4) Pre-syncope (5) Abdominal pain (6) Uropathy, obstructive (7) Elevated troponin (8) Weakness (9) LLL pneumonia (10) Community acquired pneumonia (11) Hypokalemia (12) Parkinson disease (13) Subdural hematoma (14) Hypertension Chief Complain: Fall History of Present Illness: HPI: This is an elderly white male who slipped at home and fell onto some carpet He is are actually friends of mine He developed mental status change after the fall He has known Parkinson's and is very hard of hearing He was discovered with some blood on his head and 911 was called When he got to the ER we did a CAT scan he had a subdural hematoma He was taken to the OR emergently by Dr. Warner were he underwent a subdural hematoma evacuation and drains were placed He is now admitted to the ICU where he is being examined in room 114 Currently he is still complaining of a headache Rates it 7 out of 10 Hour IV pain meds are helping Describes his pain as pounding Moving makes it worse sitting still makes it better His is present Chart is been reviewed Discussed with RN Patient is somewhat confused and has a drain in his scalp Past Medical/Surgical History: PMH/PSH: Past Medical History: CAD, IBS, UTI, Other Additional Past Medical Histor: PROSTATE CANCER, HEART ARRTHYMIAS,MRSA, CDiff, skin cancer, Parkinson's Past Surgical History: Appendectomy, Cholecystectomy, Coronary Bypass Surgery, Pacemaker Additional Past Surgical Histo: pacemaker removal s/p MRSA Alcohol Use: None Drug Use: None Allergies: Allergies: Coded Allergies: meperidine (Verified Allergy, Intermediate, 05/26/19) tolerates fentanyl Family History: Family History: Coronary disease Social History: Social Hisoty: He is remarried His first a few years ago He does not drink smoke or take drugs He is retired Current Medications: Current Medications Current Medications Sodium Chloride 1,000 ml @ 1,000 mls/hr Q1H IV Last administered on 05/26/19at 04:52; Start 05/26/19 at 04:30; Stop 05/26/19 at 05:29; Status DC Labetalol HCl (Normodyne Iv Push) 10 mg 1X ONCE IVP Last administered on 05/26/19at 05:42; Start 05/26/19 at 05:45; Stop 05/26/19 at 05:46; Status DC Ondansetron HCl (Zofran) 4 mg PRN Q8HRS PRN IV NAUSEA/VOMITING; Start 05/26/19 at 05:45; Stop 05/27/19 at 05:44 Nicardipine HCl 50 mg/Sodium Chloride 250 ml @ 25 mls/hr CONT PRN IV SEE I/O RECORD Last administered on 05/26/19at 06:15; Start 05/26/19 at 05:45 Bacitracin 85782 unit/Sodium Chloride 1,000 ml @ 1,000 mls/hr 1X ONCE IRR Last administered on 05/26/19at 09:53; Start 05/26/19 at 08:00; Stop 05/26/19 at 08:59; Status DC Gelatin (Gelfoam Size 100) 1 each STK-MED ONCE .ROUTE Last administered on 05/26/19at 09:53; Start 05/26/19 at 07:17; Stop 05/26/19 at 07:18; Status DC Bupivacaine HCl/ Epinephrine Bitart (Sensorcain-Epi 0.5%-1:894236 Mpf) 30 ml STK-MED ONCE .ROUTE Last administered on 05/26/19at 09:53; Start 05/26/19 at 07:17; Stop 05/26/19 at 07:18; Status DC Cellulose (Surgicel Hemostat 4x8) 1 each STK-MED ONCE .ROUTE ; Start 05/26/19 at 07:18; Stop 05/26/19 at 07:18; Status DC Thrombin 20,000 unit STK-MED ONCE TP Last administered on 05/26/19at 09:53; Start 05/26/19 at 07:18; Stop 05/26/19 at 07:18; Status DC Fentanyl Citrate (Fentanyl 2ml Vial) 100 mcg STK-MED ONCE .ROUTE ; Start 05/26/19 at 07:19; Stop 05/26/19 at 07:19; Status DC Propofol 20 ml @ As Directed STK-MED ONCE IV ; Start 05/26/19 at 07:19; Stop 05/26/19 at 07:20; Status DC Dexamethasone Sodium Phosphate (Decadron) 20 mg STK-MED ONCE .ROUTE ; Start 05/26/19 at 07:19; Stop 05/26/19 at 07:20; Status DC Ondansetron HCl (Zofran) 4 mg STK-MED ONCE .ROUTE ; Start 05/26/19 at 07:20; Stop 05/26/19 at 07:20; Status DC Lidocaine HCl (Lidocaine Pf 2% Vial) 5 ml STK-MED ONCE .ROUTE ; Start 05/26/19 at 07:20; Stop 05/26/19 at 07:20; Status DC Phenylephrine HCl (PHENYLEPHRINE in 0.9% NACL PF) 1 mg STK-MED ONCE IV ; Start 05/26/19 at 07:21; Stop 05/26/19 at 07:21; Status DC Desflurane (Suprane) 60 ml STK-MED ONCE IH ; Start 05/26/19 at 07:21; Stop 05/26/19 at 07:21; Status DC Mannitol (Mannitol) 12.5 g STK-MED ONCE .ROUTE ; Start 05/26/19 at 08:11; Stop 05/26/19 at 08:11; Status DC Ondansetron HCl (Zofran) 4 mg PRN Q6HRS PRN IV NAUSEA/VOMITING; Start 05/26/19 at 08:30; Stop 05/27/19 at 08:29 Fentanyl Citrate (Fentanyl 2ml Vial) 25 mcg PRN Q5MIN PRN IV MILD PAIN 1-3 Last administered on 05/26/19at 12:25; Start 05/26/19 at 08:30; Stop 05/27/19 at 08:29 Fentanyl Citrate (Fentanyl 2ml Vial) 50 mcg PRN Q5MIN PRN IV MODERATE TO SEVERE PAIN; Start 05/26/19 at 08:30; Stop 05/27/19 at 08:29 Morphine Sulfate (Morphine Sulfate) 1 mg PRN Q10MIN PRN IV SEVERE PAIN 7-10; Start 05/26/19 at 08:30; Stop 05/27/19 at 08:29 Ringer's Solution 1,000 ml @ 30 mls/hr Q24H IV Last administered on 05/26/19at 12:50; Start 05/26/19 at 08:28; Stop 05/26/19 at 20:27 Hydromorphone HCl (Dilaudid) 0.5 mg PRN Q10MIN PRN IV SEV PAIN, Second choice; Start 05/26/19 at 08:30; Stop 05/27/19 at 08:29 Prochlorperazine Edisylate (Compazine) 5 mg PACU PRN PRN IV NAUSEA, MRX1; Start 05/26/19 at 08:30; Stop 05/27/19 at 08:29 Cefazolin Sodium/ Dextrose 50 ml @ 100 mls/hr 1X ONCE IV Last administered on 05/26/19at 09:01; Start 05/26/19 at 09:00; Stop 05/26/19 at 09:29; Status DC Rocuronium [place] (Zemuron) 50 mg STK-MED ONCE .ROUTE ; Start 05/26/19 at 09:32; Stop 05/26/19 at 09:32; Status DC Glycopyrrolate (Robinul) 1 mg STK-MED ONCE .ROUTE ; Start 05/26/19 at 09:32; Stop 05/26/19 at 09:33; Status DC Neostigmine [place] (Neostigmine Methylsulfate) 5 mg STK-MED ONCE .ROUTE ; Start 05/26/19 at 09:32; Stop 05/26/19 at 09:33; Status DC Al Hydroxide/Mg Hydroxide (Mylanta Plus Xs) 30 ml PRN Q3HRS PRN PO HEARTBURN / GAS; Start 05/26/19 at 10:00 Calcium Carbonate/ Glycine (Tums) 500 mg PRN Q3HRS PRN PO INDIGESTION; Start 05/26/19 at 10:00 Sodium Chloride (Normal Saline Flush) 3 ml QSHIFT PRN IV AFTER MEDS AND BLOOD DRAWS; Start 05/26/19 at 10:00 Potassium Chloride/Dextrose/ Sod Cl 1,000 ml @ 75 mls/hr [id number] IV ; Start 05/26/19 at 11:00 Dextrose (Dextrose 50%-Water Syringe) 12.5 gm PRN Q15MIN PRN IV SEE COMMENTS; Start 05/26/19 at 10:00 Dextrose (Iv Dextrose 5%) 250 ml PRN Q15MIN PRN IV SEE COMMENTS; Start 05/26/19 at 10:00 Acetaminophen/ Hydrocodone Bitart (Lortab 5/325) 1 tab PRN Q4HRS PRN PO MILD PAIN 1-3; Start 05/26/19 at 10:00 Docusate Sodium (Colace) 100 mg BID PO ; Start 05/26/19 at 21:00 Cefazolin Sodium (Ancef) 1 gm Q8H IVP ; Start 05/26/19 at 17:00; Stop 05/27/19 at 09:01 Acetaminophen (Tylenol) 650 mg PRN Q6HRS PRN PO HEADACHE/FEVER; Start 05/26/19 at 10:00 Morphine Sulfate (Morphine Sulfate) 2 mg PRN Q2HR PRN IV PAIN; Start 05/26/19 at 10:15 Fentanyl Citrate (Fentanyl 2ml Vial) 100 mcg STK-MED ONCE .ROUTE ; Start 05/26/19 at 10:12; Stop 05/26/19 at 10:13; Status DC Midazolam HCl (Versed) 2 mg STK-MED ONCE .ROUTE ; Start 05/26/19 at 14:08; Stop 05/26/19 at 14:08; Status DC Active Scripts Active Klor-Con M20 (Potassium Chloride) 20 Meq Tab.er.prt 40 Meq PO TIDWMEALS Hydralazine Hcl 25 Mg Tablet 25 Mg PO TID Reported Preservision Areds Tablet (Vit A/Vit C/Vit E/Zinc/Copper) 1 Each Tablet 2 Tab PO DAILY 30 Days Fludrocortisone Acetate 0.1 Mg Tablet 0.1 Mg PO TID Spironolactone 25 Mg Tablet 0.5 Tab PO DAILY Probiotic Blend Capsule (L.acid/L.casei/B.bif/B.philip/Fos) 1 Each Capsule 1 Cap PO DAILY Preservision Areds Tablet (Vit A/Vit C/Vit E/Zinc/Copper) 1 Each Tablet 1 Tab PO DAILY 30 Days Loperamide (Loperamide Hcl) 2 Mg Tablet 1 Mg PO PRN Q4HRS PRN Metamucil (Psyllium Husk) 0.52 Gm Capsule 1 Cap PO DAILY Dicyclomine Hcl 10 Mg Capsule 1 Cap PO PRN TID PRN Cyanocobalamin Injection (Cyanocobalamin (Vitamin B-12)) 1,000 Mcg/1 Ml Vial 1 Ml IM QMONTH Carbidopa-Levodopa 25-100 Tab (Carbidopa/Levodopa) 1 Each Tablet 2 Tab PO TID Levothyroxine Sodium 75 Mcg Tablet 1 Tab PO DAILY Aspir 81 (Aspirin) 81 Mg Tablet. 1 Tab PO DAILY Atorvastatin Calcium 10 Mg Tablet 10 Mg PO HS ROS: Review of Systems Unable to obtain the patient is too confused and very hard of hearing Physical Exam: Vital Signs: Vital Signs Date Time Temp Pulse Resp B/P (MAP) Pulse Ox O2 Delivery O2 Flow Rate FiO2 05/26/19 13:00 99.5 81 22 150/81 (104) 95 Room Air 99.5 05/26/19 12:30 2.0 Physcial Exam: GEN: Pleasantly confused very hard of hearing minimal speech HEENT: He has a BEENA drain in his scalp EYES: Extraocular muscles are intact, pupil are equally round and reactive to light and accommodation MUSCULOSKELETAL: Well developed , well nourished, good range of motion ENDOCRINE: No thyromegaly was palpated LYMPHATICS: No cervical chain or axillary nodes were noted HEMATOPOIETIC: No bruising NECK: Supple, no JVD, no thyromegaly was noted LUNGS: Clear to auscultation in all lung brasher without rhonchi or wheezing HEART: RRR, S!, S2 present. Peripheral pulses intact, no obvious murmurs noted ABDOMEN: Soft, nontender. Positive bowel sounds, no organomegaly, normal bowel sounds EXTREMITIES: Without clubbing, cyanosis, or edema. Pedal pulses intact. Negative Homans sign NEUROLOGIC: He is not talking much very confused PSYCHIATRIC: Seems depressed SKIN: No ulcerations or rashes, good skin turgor, no jaundice, he does have an incision on the scalp VASCULAR: Good capillary refill, neurovascular bundle appears to be intact Labs: Labs: Laboratory Tests Test 05/26/19 04:45 White Blood Count 10.9 x10^3/uL (4.0-11.0) Red Blood Count 5.11 x10^6/uL (4.30-5.70) Hemoglobin 16.0 g/dL (13.0-17.5) Hematocrit 46.6 % (39.0-53.0) Mean Corpuscular Volume 91 fL (79-100) Mean Corpuscular Hemoglobin 31 pg (25-35) Mean Corpuscular Hemoglobin Concent 34 g/dL (31-37) Red Cell Distribution Width 14.2 % (11.5-14.5) Platelet Count 170 x10^3/uL (140-400) Neutrophils (%) (Auto) 53 % (31-73) Lymphocytes (%) (Auto) 39 % (24-48) Monocytes (%) (Auto) 5 % (0-9) Eosinophils (%) (Auto) 2 % (0-3) Basophils (%) (Auto) 0 % (0-3) Neutrophils # (Auto) 5.8 x10^3/uL (1.8-7.7) Lymphocytes # (Auto) 4.3 x10^3/uL (1.0-4.8) Monocytes # (Auto) 0.5 x10^3/uL (0.0-1.1) Eosinophils # (Auto) 0.3 x10^3/uL (0.0-0.7) Basophils # (Auto) 0.0 x10^3/uL (0.0-0.2) Prothrombin Time 13.5 SEC (11.7-14.0) Prothromb Time International Ratio 1.1 (0.8-1.1) Sodium Level 143 mmol/L (136-145) Potassium Level 3.4 mmol/L (3.5-5.1) Chloride Level 105 mmol/L (98-107) Carbon Dioxide Level 27 mmol/L (21-32) Anion Gap 11 (6-14) Blood Urea Nitrogen 10 mg/dL (8-26) Creatinine 0.9 mg/dL (0.7-1.3) Estimated GFR (Cockcroft-Gault) 80.4 BUN/Creatinine Ratio 11 (6-20) Glucose Level 115 mg/dL (70-99) Calcium Level 8.8 mg/dL (8.5-10.1) Total Bilirubin 1.1 mg/dL (0.2-1.0) Aspartate Amino Transf (AST/SGOT) 21 U/L (15-37) Alanine Aminotransferase (ALT/SGPT) 23 U/L (16-63) Alkaline Phosphatase 56 U/L (46-116) Total Protein 6.4 g/dL (6.4-8.2) Albumin 3.8 g/dL (3.4-5.0) Albumin/Globulin Ratio 1.5 (1.0-1.7) Laboratory Tests Test 05/26/19 04:45 White Blood Count 10.9 x10^3/uL (4.0-11.0) Red Blood Count 5.11 x10^6/uL (4.30-5.70) Hemoglobin 16.0 g/dL (13.0-17.5) Hematocrit 46.6 % (39.0-53.0) Mean Corpuscular Volume 91 fL (79-100) Mean Corpuscular Hemoglobin 31 pg (25-35) Mean Corpuscular Hemoglobin Concent 34 g/dL (31-37) Red Cell Distribution Width 14.2 % (11.5-14.5) Platelet Count 170 x10^3/uL (140-400) Neutrophils (%) (Auto) 53 % (31-73) Lymphocytes (%) (Auto) 39 % (24-48) Monocytes (%) (Auto) 5 % (0-9) Eosinophils (%) (Auto) 2 % (0-3) Basophils (%) (Auto) 0 % (0-3) Neutrophils # (Auto) 5.8 x10^3/uL (1.8-7.7) Lymphocytes # (Auto) 4.3 x10^3/uL (1.0-4.8) Monocytes # (Auto) 0.5 x10^3/uL (0.0-1.1) Eosinophils # (Auto) 0.3 x10^3/uL (0.0-0.7) Basophils # (Auto) 0.0 x10^3/uL (0.0-0.2) Prothrombin Time 13.5 SEC (11.7-14.0) Prothromb Time International Ratio 1.1 (0.8-1.1) Sodium Level 143 mmol/L (136-145) Potassium Level 3.4 mmol/L (3.5-5.1) Chloride Level 105 mmol/L (98-107) Carbon Dioxide Level 27 mmol/L (21-32) Anion Gap 11 (6-14) Blood Urea Nitrogen 10 mg/dL (8-26) Creatinine 0.9 mg/dL (0.7-1.3) Estimated GFR (Cockcroft-Gault) 80.4 BUN/Creatinine Ratio 11 (6-20) Glucose Level 115 mg/dL (70-99) Calcium Level 8.8 mg/dL (8.5-10.1) Total Bilirubin 1.1 mg/dL (0.2-1.0) Aspartate Amino Transf (AST/SGOT) 21 U/L (15-37) Alanine Aminotransferase (ALT/SGPT) 23 U/L (16-63) Alkaline Phosphatase 56 U/L (46-116) Total Protein 6.4 g/dL (6.4-8.2) Albumin 3.8 g/dL (3.4-5.0) Albumin/Globulin Ratio 1.5 (1.0-1.7) Images: Images I reviewed the CAT scan myself he indeed does have a large hematoma on the left Please see the official read by the radiologist below EXAM: CT Head without IV contrast CLINICAL HISTORY: Fall COMPARISON: 12/28/2015 TECHNIQUE: Routine CT of the head without contrast. Soft tissues and bone windows were reviewed. PQRS compliance statement - One or more of the following individualized dose reduction techniques were utilized for this study: 1. Automated exposure control 2. Adjustment of the mA and/or kV according to patient size 3. Use of iterative reconstruction technique FINDINGS: Findings of prominent left subdural hematoma is seen measuring 3.2 cm in thickness. In addition there is approximately 14 mm left to right midline shift. Basilar cisterns are grossly preserved. Lara-white differentiation is maintained with no evidence of edema. The cerebellum and brainstem are unremarkable. The calvarium demonstrates no evidence of fracture or focal lesion. There is normal aeration of the visualized paranasal sinuses and mastoid air cells. The visualized portions of the orbits are normal. IMPRESSION: Acute left subdural hematoma measuring 3.2 cm in thickness and approximately 14 mm left to right subfalcine herniation. 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 and a elderly male who has Parkinson's and multiple comorbidities Plan ICU monitoring TECHNICAL MANAGER drain Wound care IV hydration Speech therapy and physical therapy occupational therapy Seizure precautions Home meds DVT prophylaxis Full code He received IV Ancef IV dexamethasone and mannitol already Suspect he he is going to need a few weeks in rehabilitation unit once we get him stabilized here and he gets out of the hospital I'm concerned he could end up and long-term care I reviewed the case with his Long-term prognosis guarded He is critically ill MAUREEN MERCADO III DO May 26, 2019 14:38
[2019-05-26] MEDS ORDERED: DICYCLOMINE HCL 10 MG CAPSULE PO PRN (16:00)
[2019-05-26] MEDS: POTASSIUM CL 20MEQ D5-0.45NACL 1,000 ML IV SCH (16:43)
[2019-05-26] MEDS: FLUDROCORTISONE 0.1 MG TABLET PO SCH (16:43)
[2019-05-26] MEDS: CARBIDOPA/LEVODOPA 25/100MG TABLET PO SCH (16:44)
[2019-05-26] MEDS: POTASSIUM CHLORIDE 20 MEQ TABLET.ER. PO SCH (17:00)
[2019-05-26] MEDS: ceFAZolin SODIUM IV Push 1 GM VIAL. IVP SCH (17:26)
--- NOTE | 2019-05-26 17:27 | NUR ---
po potassium not given; patient receive IV potassium at this time
[2019-05-26] MEDS: ATORVASTATIN CALCIUM 10 MG TABLET. PO SCH (20:59)
[2019-05-26] MEDS: DOCUSATE SODIUM 100 MG CAPSULE. PO SCH (20:59)
[2019-05-26] MEDS: hydrALAZINE 25 MG TABLET PO SCH (20:59)
[2019-05-26 23:32] LABS: BILIRUBIN,URINE NEGATIVE (NEG); CLARITY,URINE CLEAR; COLOR,URINE YELLOW; NITRITE,URINE NEGATIVE (NEG); PROTEIN,URINE 30 mg/dL (NEG-TRACE)
[2019-05-26 23:33] LABS: BACTERIA,URINE 0 /HPF (0-FEW); SQUAMOUS EPITHELIAL CELL,UR OCC /LPF
[2019-05-27] VITALS (15 sets, daily range): BP systolic 12–176; BP diastolic 48–95
[2019-05-27] MEDS: ceFAZolin SODIUM IV Push 1 GM VIAL. IVP SCH ×2 (03:14→09:19)
[2019-05-27 05:42] LABS: BASO % 0 % (0-3); EOS # 0.1 x10^3/uL (0.0-0.7); EOS % 1 % (0-3); HEMATOCRIT 40.3 % (39.0-53.0); HEMOGLOBIN 13.7 g/dL (13.0-17.5); LYMPH # 5.1 x10^3/uL (1.0-4.8); LYMPH % 33 % (24-48); MEAN CORPUSCULAR HEMOGLOBIN 31 pg (25-35); MEAN CORPUSCULAR HGB CONC 34 g/dL (31-37); MEAN CORPUSCULAR VOLUME 92 fL (79-100); MONO # 0.7 x10^3/uL (0.0-1.1); MONO % 5 % (0-9); NEUT # 9.5 x10^3/uL (1.8-7.7); NEUT % 61 % (31-73); PLATELET COUNT 158 x10^3/uL (140-400); RED BLOOD COUNT 4.39 x10^6/uL (4.30-5.70); RED CELL DISTRIBUTION WIDTH 13.7 % (11.5-14.5); WHITE BLOOD COUNT 15.5 x10^3/uL (4.0-11.0)
[2019-05-27 06:01] LABS: ALBUMIN 2.8 g/dL (3.4-5.0); ALBUMIN/GLOBULIN RATIO 1.2 (1.0-1.7); ANION GAP 9 (6-14); AST (SGOT) 14 U/L (15-37); BLOOD UREA NITROGEN 11 mg/dL (8-26); BUN/CREATININE RATIO 16 (6-20); CALCIUM 7.8 mg/dL (8.5-10.1); CARBON DIOXIDE 28 mmol/L (21-32); CHLORIDE 105 mmol/L (98-107); CREATININE 0.7 mg/dL (0.7-1.3); GFR 107.4; GLUCOSE 126 mg/dL (70-99); SODIUM 142 mmol/L (136-145); TOTAL BILIRUBIN 0.7 mg/dL (0.2-1.0); TOTAL PROTEIN 5.1 g/dL (6.4-8.2)
--- NOTE | 2019-05-27 06:06 | NUR ---
Art line without waveform, though draws and flushes fairly well. Will monitor through NIBP. Rested well overnight, though remains confused. VSS. Cardene drip stopped at 0500. B/P remains stable.
[2019-05-27 06:13] LABS: ALK PHOS 51 U/L (46-116)
[2019-05-27 06:14] LABS: ALT (SGPT) < 6 U/L (16-63)
[2019-05-27 06:17] LABS: POTASSIUM 2.9 mmol/L (3.5-5.1)
[2019-05-27] MEDS ORDERED: POTASSIUM CHLORIDE 20 MEQ TABLET.ER. PO ONE (07:00)
[2019-05-27] MEDS ORDERED: POTASSIUM CHLORIDE 20 MEQ TABLET.ER. PO SCH (07:00)
[2019-05-27] MEDS: hydrALAZINE 25 MG TABLET PO SCH ×4 (08:09→20:36)
[2019-05-27] MEDS: LACTOBACILLUS RHAMNOSUS GG 1 CAPSULE. PO SCH (09:11)
[2019-05-27] MEDS: MULTIVITAMIN I-VITE TABLET. PO SCH (09:11)
[2019-05-27] MEDS: CARBIDOPA/LEVODOPA 25/100MG TABLET PO SCH ×4 (09:11→20:35)
[2019-05-27] MEDS: SPIRONOLACTONE 25 MG TABLET PO SCH (09:12)
[2019-05-27] MEDS: POTASSIUM CHLORIDE 20 MEQ TABLET.ER. PO SCH ×5 (09:12→19:06)
[2019-05-27] MEDS: POTASSIUM CL 20MEQ D5-0.45NACL 1,000 ML IV SCH ×2 (09:13→23:36)
[2019-05-27] MEDS: DOCUSATE SODIUM 100 MG CAPSULE. PO SCH ×2 (09:19→20:44)
--- NOTE | 2019-05-27 09:30 | NUR ---
IP: Pt stated hx of mrsa from pacemaker. Unconfirmed. MRSA screen is negative. Pt does not need contact precautions at this time.
--- NOTE | 2019-05-27 09:53 | NUR ---
SS following for discharge planning. SS reviewed pt chart. Pt is from home with family and is currently on room air. PT/OT orders requested. SS will continue to follow for discharge planning.
--- NOTE | 2019-05-27 10:16 | PDOC ---
PROGRESS NOTES Subjective Subjective POD #1 S/P crani for evacuation of SDH awake, alert sitting up in bed. no complaints Objective Objective Vital Signs Date Time Temp Pulse Resp B/P (MAP) Pulse Ox O2 Delivery O2 Flow Rate FiO2 05/27/19 08:09 64 154/73 05/27/19 08:00 Room Air 05/27/19 08:00 97.7 18 95 97.7 05/27/19 07:00 2.0 Intake and Output 05/27/19 07:00 Intake Total 2630 ml Output Total 7640 ml Balance -5010 ml Intake Oral 120 ml IV Total 2510 ml Output Urine Total 2530 ml Drainage Total 85 ml Estimated Blood Loss 5025 ml Physical Exam General: Cooperative, No acute distress MUSCULOSKELETAL: Other (BONE) Neck: No LAD Skin: Other (Dressing CLEAN, DRY) Assessment Assessment Problems Medical Problems: (1) Accelerated hypertension Status: Acute (2) Hypertension Status: Acute (3) Subdural hematoma Status: Acute Plan Plan of Care OK to transfer to floor Consult Dr. Cao will likely need SNF Comment Review of Relevant I have reviewed the following items maira (where applicable) has been applied. Labs Laboratory Tests Test 05/26/19 04:45 05/26/19 13:35 05/26/19 23:00 05/27/19 05:38 White Blood Count 10.9 x10^3/uL (4.0-11.0) 15.5 x10^3/uL (4.0-11.0) Red Blood Count 5.11 x10^6/uL (4.30-5.70) 4.39 x10^6/uL (4.30-5.70) Hemoglobin 16.0 g/dL (13.0-17.5) 13.7 g/dL (13.0-17.5) Hematocrit 46.6 % (39.0-53.0) 40.3 % (39.0-53.0) Mean Corpuscular Volume 91 fL (79-100) 92 fL (79-100) Mean Corpuscular Hemoglobin 31 pg (25-35) 31 pg (25-35) Mean Corpuscular Hemoglobin Concent 34 g/dL (31-37) 34 g/dL (31-37) Red Cell Distribution Width 14.2 % (11.5-14.5) 13.7 % (11.5-14.5) Platelet Count 170 x10^3/uL (140-400) 158 x10^3/uL (140-400) Neutrophils (%) (Auto) 53 % (31-73) 61 % (31-73) Lymphocytes (%) (Auto) 39 % (24-48) 33 % (24-48) Monocytes (%) (Auto) 5 % (0-9) 5 % (0-9) Eosinophils (%) (Auto) 2 % (0-3) 1 % (0-3) Basophils (%) (Auto) 0 % (0-3) 0 % (0-3) Neutrophils # (Auto) 5.8 x10^3/uL (1.8-7.7) 9.5 x10^3/uL (1.8-7.7) Lymphocytes # (Auto) 4.3 x10^3/uL (1.0-4.8) 5.1 x10^3/uL (1.0-4.8) Monocytes # (Auto) 0.5 x10^3/uL (0.0-1.1) 0.7 x10^3/uL (0.0-1.1) Eosinophils # (Auto) 0.3 x10^3/uL (0.0-0.7) 0.1 x10^3/uL (0.0-0.7) Basophils # (Auto) 0.0 x10^3/uL (0.0-0.2) 0.0 x10^3/uL (0.0-0.2) Prothrombin Time 13.5 SEC (11.7-14.0) Prothromb Time International Ratio 1.1 (0.8-1.1) Sodium Level 143 mmol/L (136-145) 142 mmol/L (136-145) Potassium Level 3.4 mmol/L (3.5-5.1) 2.9 mmol/L (3.5-5.1) Chloride Level 105 mmol/L (98-107) 105 mmol/L (98-107) Carbon Dioxide Level 27 mmol/L (21-32) 28 mmol/L (21-32) Anion Gap 11 (6-14) 9 (6-14) Blood Urea Nitrogen 10 mg/dL (8-26) 11 mg/dL (8-26) Creatinine 0.9 mg/dL (0.7-1.3) 0.7 mg/dL (0.7-1.3) Estimated GFR (Cockcroft-Gault) 80.4 107.4 BUN/Creatinine Ratio 11 (6-20) 16 (6-20) Glucose Level 115 mg/dL (70-99) 126 mg/dL (70-99) Calcium Level 8.8 mg/dL (8.5-10.1) 7.8 mg/dL (8.5-10.1) Total Bilirubin 1.1 mg/dL (0.2-1.0) 0.7 mg/dL (0.2-1.0) Aspartate Amino Transf (AST/SGOT) 21 U/L (15-37) 14 U/L (15-37) Alanine Aminotransferase (ALT/SGPT) 23 U/L (16-63) < 6 U/L (16-63) Alkaline Phosphatase 56 U/L (46-116) 51 U/L (46-116) Total Protein 6.4 g/dL (6.4-8.2) 5.1 g/dL (6.4-8.2) Albumin 3.8 g/dL (3.4-5.0) 2.8 g/dL (3.4-5.0) Albumin/Globulin Ratio 1.5 (1.0-1.7) 1.2 (1.0-1.7) Nasal Screen MRSA (PCR) Negative (Negative) Urine Collection Type Unknown Urine Color Yellow Urine Clarity Clear Urine pH 6.0 Urine Specific [place] 1.025 Urine Protein 30 mg/dL (NEG-TRACE) Urine Glucose (UA) Negative mg/dL (NEG) Urine Ketones (Stick) Negative mg/dL (NEG) Urine Blood Moderate (NEG) Urine Nitrite Negative (NEG) Urine Bilirubin Negative (NEG) Urine Urobilinogen Dipstick 1.0 mg/dL (0.2 mg/dL) Urine Leukocyte Esterase Trace (NEG) Urine RBC 6-10 /HPF (0-2) Urine WBC 11-20 /HPF (0-4) Urine Squamous Epithelial Cells Occ /LPF Urine Bacteria 0 /HPF (0-FEW) Urine Mucus Mod /LPF Laboratory Tests Test 05/26/19 13:35 1/29/20 23:00 05/27/19 05:38 Nasal Screen MRSA (PCR) Negative (Negative) Urine Collection Type Unknown Urine Color Yellow Urine Clarity Clear Urine pH 6.0 Urine Specific [place] 1.025 Urine Protein 30 mg/dL (NEG-TRACE) Urine Glucose (UA) Negative mg/dL (NEG) Urine Ketones (Stick) Negative mg/dL (NEG) Urine Blood Moderate (NEG) Urine Nitrite Negative (NEG) Urine Bilirubin Negative (NEG) Urine Urobilinogen Dipstick 1.0 mg/dL (0.2 mg/dL) Urine Leukocyte Esterase Trace (NEG) Urine RBC 6-10 /HPF (0-2) Urine WBC 11-20 /HPF (0-4) Urine Squamous Epithelial Cells Occ /LPF Urine Bacteria 0 /HPF (0-FEW) Urine Mucus Mod /LPF White Blood Count 15.5 x10^3/uL (4.0-11.0) Red Blood Count 4.39 x10^6/uL (4.30-5.70) Hemoglobin 13.7 g/dL (13.0-17.5) Hematocrit 40.3 % (39.0-53.0) Mean Corpuscular Volume 92 fL (79-100) Mean Corpuscular Hemoglobin 31 pg (25-35) Mean Corpuscular Hemoglobin Concent 34 g/dL (31-37) Red Cell Distribution Width 13.7 % (11.5-14.5) Platelet Count 158 x10^3/uL (140-400) Neutrophils (%) (Auto) 61 % (31-73) Lymphocytes (%) (Auto) 33 % (24-48) Monocytes (%) (Auto) 5 % (0-9) Eosinophils (%) (Auto) 1 % (0-3) Basophils (%) (Auto) 0 % (0-3) Neutrophils # (Auto) 9.5 x10^3/uL (1.8-7.7) Lymphocytes # (Auto) 5.1 x10^3/uL (1.0-4.8) Monocytes # (Auto) 0.7 x10^3/uL (0.0-1.1) Eosinophils # (Auto) 0.1 x10^3/uL (0.0-0.7) Basophils # (Auto) 0.0 x10^3/uL (0.0-0.2) Sodium Level 142 mmol/L (136-145) Potassium Level 2.9 mmol/L (3.5-5.1) Chloride Level 105 mmol/L (98-107) Carbon Dioxide Level 28 mmol/L (21-32) Anion Gap 9 (6-14) Blood Urea Nitrogen 11 mg/dL (8-26) Creatinine 0.7 mg/dL (0.7-1.3) Estimated GFR (Cockcroft-Gault) 107.4 BUN/Creatinine Ratio 16 (6-20) Glucose Level 126 mg/dL (70-99) Calcium Level 7.8 mg/dL (8.5-10.1) Total Bilirubin 0.7 mg/dL (0.2-1.0) Aspartate Amino Transf (AST/SGOT) 14 U/L (15-37) Alanine Aminotransferase (ALT/SGPT) < 6 U/L (16-63) Alkaline Phosphatase 51 U/L (46-116) Total Protein 5.1 g/dL (6.4-8.2) Albumin 2.8 g/dL (3.4-5.0) Albumin/Globulin Ratio 1.2 (1.0-1.7) Medications Current Medications Sodium Chloride 1,000 ml @ 1,000 mls/hr Q1H IV Last administered on 05/26/19at 04:52; Start 05/26/19 at 04:30; Stop 05/26/19 at 05:29; Status DC Labetalol HCl (Normodyne Iv Push) 10 mg 1X ONCE IVP Last administered on 05/26/19at 05:42; Start 05/26/19 at 05:45; Stop 05/26/19 at 05:46; Status DC Ondansetron HCl (Zofran) 4 mg PRN Q8HRS PRN IV NAUSEA/VOMITING; Start 05/26/19 at 05:45; Stop 05/27/19 at 05:44; Status DC Nicardipine HCl 50 mg/Sodium Chloride 250 ml @ 25 mls/hr CONT PRN IV SEE I/O RECORD Last administered on 05/26/19at 20:41; Start 05/26/19 at 05:45 Bacitracin 64377 unit/Sodium Chloride 1,000 ml @ 1,000 mls/hr 1X ONCE IRR Last administered on 05/26/19at 09:53; Start 05/26/19 at 08:00; Stop 05/26/19 at 08:59; Status DC Gelatin (Gelfoam Size 100) 1 each STK-MED ONCE .ROUTE Last administered on 05/26/19at 09:53; Start 05/26/19 at 07:17; Stop 05/26/19 at 07:18; Status DC Bupivacaine HCl/ Epinephrine Bitart (Sensorcain-Epi 0.5%-1:129672 Mpf) 30 ml STK-MED ONCE .ROUTE Last administered on 05/26/19at 09:53; Start 05/26/19 at 07:17; Stop 05/26/19 at 07:18; Status DC Cellulose (Surgicel Hemostat 4x8) 1 each STK-MED ONCE .ROUTE ; Start 05/26/19 at 07:18; Stop 05/26/19 at 07:18; Status DC Thrombin 20,000 unit STK-MED ONCE TP Last administered on 05/26/19at 09:53; Start 05/26/19 at 07:18; Stop 05/26/19 at 07:18; Status DC Fentanyl Citrate (Fentanyl 2ml Vial) 100 mcg STK-MED ONCE .ROUTE ; Start 05/26/19 at 07:19; Stop 05/26/19 at 07:19; Status DC Propofol 20 ml @ As Directed STK-MED ONCE IV ; Start 05/26/19 at 07:19; Stop 05/26/19 at 07:20; Status DC Dexamethasone Sodium Phosphate (Decadron) 20 mg STK-MED ONCE .ROUTE ; Start 05/26/19 at 07:19; Stop 05/26/19 at 07:20; Status DC Ondansetron HCl (Zofran) 4 mg STK-MED ONCE .ROUTE ; Start 05/26/19 at 07:20; Stop 05/26/19 at 07:20; Status DC Lidocaine HCl (Lidocaine Pf 2% Vial) 5 ml STK-MED ONCE .ROUTE ; Start 05/26/19 at 07:20; Stop 05/26/19 at 07:20; Status DC Phenylephrine HCl (PHENYLEPHRINE in 0.9% NACL PF) 1 mg STK-MED ONCE IV ; Start 05/26/19 at 07:21; Stop 05/26/19 at 07:21; Status DC Desflurane (Suprane) 60 ml STK-MED ONCE IH ; Start 05/26/19 at 07:21; Stop 05/26/19 at 07:21; Status DC Mannitol (Mannitol) 12.5 g STK-MED ONCE .ROUTE ; Start 05/26/19 at 08:11; Stop 05/26/19 at 08:11; Status DC Ondansetron HCl (Zofran) 4 mg PRN Q6HRS PRN IV NAUSEA/VOMITING; Start 05/26/19 at 08:30; Stop 05/26/19 at 19:13; Status DC Fentanyl Citrate (Fentanyl 2ml Vial) 25 mcg PRN Q5MIN PRN IV MILD PAIN 1-3 Last administered on 05/26/19at 12:25; Start 05/26/19 at 08:30; Stop 05/26/19 at 19:13; Status DC Fentanyl Citrate (Fentanyl 2ml Vial) 50 mcg PRN Q5MIN PRN IV MODERATE TO SEVERE PAIN; Start 05/26/19 at 08:30; Stop 05/26/19 at 19:13; Status DC Morphine Sulfate (Morphine Sulfate) 1 mg PRN Q10MIN PRN IV SEVERE PAIN 7-10; Start 05/26/19 at 08:30; Stop 05/26/19 at 19:13; Status DC Ringer's Solution 1,000 ml @ 30 mls/hr Q24H IV Last administered on 05/26/19at 12:50; Start 05/26/19 at 08:28; Stop 05/26/19 at 19:09; Status DC Hydromorphone HCl (Dilaudid) 0.5 mg PRN Q10MIN PRN IV SEV PAIN, Second choice; Start 05/26/19 at 08:30; Stop 05/26/19 at 19:13; Status DC Prochlorperazine Edisylate (Compazine) 5 mg PACU PRN PRN IV NAUSEA, MRX1; Start 05/26/19 at 08:30; Stop 05/26/19 at 19:13; Status DC Cefazolin Sodium/ Dextrose 50 ml @ 100 mls/hr 1X ONCE IV Last administered on 05/26/19at 09:01; Start 05/26/19 at 09:00; Stop 05/26/19 at 09:29; Status DC Rocuronium [place] (Zemuron) 50 mg STK-MED ONCE .ROUTE ; Start 05/26/19 at 09:32; Stop 05/26/19 at 09:32; Status DC Glycopyrrolate (Robinul) 1 mg STK-MED ONCE .ROUTE ; Start 05/26/19 at 09:32; Stop 05/26/19 at 09:33; Status DC Neostigmine [place] (Neostigmine Methylsulfate) 5 mg STK-MED ONCE .ROUTE ; Start 05/26/19 at 09:32; Stop 05/26/19 at 09:33; Status DC Al Hydroxide/Mg Hydroxide (Mylanta Plus Xs) 30 ml PRN Q3HRS PRN PO HEARTBURN / GAS; Start 05/26/19 at 10:00 Calcium Carbonate/ Glycine (Tums) 500 mg PRN Q3HRS PRN PO INDIGESTION; Start 05/26/19 at 10:00 Sodium Chloride (Normal Saline Flush) 3 ml QSHIFT PRN IV AFTER MEDS AND BLOOD DRAWS; Start 05/26/19 at 10:00 Potassium Chloride/Dextrose/ Sod Cl 1,000 ml @ 75 mls/hr [id number] IV Last administered on 05/27/19at 09:13; Start 05/26/19 at 11:00 Dextrose (Dextrose 50%-Water Syringe) 12.5 gm PRN Q15MIN PRN IV SEE COMMENTS; Start 05/26/19 at 10:00 Dextrose (Iv Dextrose 5%) 250 ml PRN Q15MIN PRN IV SEE COMMENTS; Start 05/26/19 at 10:00 Acetaminophen/ Hydrocodone Bitart (Lortab 5/325) 1 tab PRN Q4HRS PRN PO MILD PAIN 1-3; Start 05/26/19 at 10:00 Docusate Sodium (Colace) 100 mg BID PO Last administered on 05/27/19at 09:19; Start 05/26/19 at 21:00 Cefazolin Sodium (Ancef) 1 gm Q8H IVP Last administered on 05/27/19at 09:19; Start 05/26/19 at 17:00; Stop 05/27/19 at 09:01; Status DC Acetaminophen (Tylenol) 650 mg PRN Q6HRS PRN PO HEADACHE/FEVER; Start 05/26/19 at 10:00 Morphine Sulfate (Morphine Sulfate) 2 mg PRN Q2HR PRN IV PAIN; Start 05/26/19 at 10:15 Fentanyl Citrate (Fentanyl 2ml Vial) 100 mcg STK-MED ONCE .ROUTE ; Start 05/26/19 at 10:12; Stop 05/26/19 at 10:13; Status DC Midazolam HCl (Versed) 2 mg STK-MED ONCE .ROUTE ; Start 05/26/19 at 14:08; Stop 05/26/19 at 14:08; Status DC Atorvastatin Calcium (Lipitor) 10 mg HS PO Last administered on 05/26/19at 20:59; Start 05/26/19 at 21:00 Carbidopa/Levodopa (Sinemet 25/100) 2 tab TID PO Last administered on 05/27/19at 09:11; Start 05/26/19 at 21:00 Cyanocobalamin (Vitamin B-12) 1,000 mcg QMONTH IM ; Start 06/25/19 at 09:00 Dicyclomine HCl (Bentyl) 10 mg PRN TID PRN PO DIARRHEA; Start 05/26/19 at 16:00 Fludrocortisone Acetate (Florinef) 0.1 mg TID PO Last administered on 05/26/19at 16:43; Start 05/26/19 at 21:00 Hydralazine HCl (Apresoline) 25 mg TID PO Last administered on 05/27/19at 08:09; Start 05/26/19 at 21:00 Levothyroxine Sodium (Synthroid) 75 mcg DAILY PO ; Start 05/27/19 at 09:00 Potassium Chloride (Klor-Con) 40 meq TIDWMEALS PO Last administered on 05/27/19at 09:12; Start 05/26/19 at 17:00 Spironolactone (Aldactone) 12.5 mg DAILY PO Last administered on 05/27/19at 09:12; Start 05/27/19 at 09:00 Lactobacillus Rhamnosus (Culturelle) 1 cap DAILY PO Last administered on 05/27/19at 09:11; Start 05/27/19 at 09:00 Multivitamins/ Minerals (I-[place]) 2 tab DAILY PO Last administered on 05/27/19at 09:11; Start 05/27/19 at 09:00 Potassium Chloride (Klor-Con) 40 meq 1X ONCE PO Last administered on 05/27/19at 08:05; Start 05/27/19 at 07:00; Stop 05/27/19 at 07:01; Status DC Potassium Chloride (Klor-Con) 40 meq Q2H PO ; Start 05/27/19 at 10:00; Stop 05/27/19 at 12:01 Potassium Chloride (Klor-Con) 40 meq Q2H PO ; Start 05/27/19 at 07:00; Stop 05/27/19 at 11:01; Status UNV Active Scripts Active Klor-Con M20 (Potassium Chloride) 20 Meq Tab.er.prt 40 Meq PO TIDWMEALS Hydralazine Hcl 25 Mg Tablet 25 Mg PO TID Reported Preservision Areds Tablet (Vit A/Vit C/Vit E/Zinc/Copper) 1 Each Tablet 2 Tab PO DAILY 30 Days Fludrocortisone Acetate 0.1 Mg Tablet 0.1 Mg PO TID Spironolactone 25 Mg Tablet 0.5 Tab PO DAILY Probiotic Blend Capsule (L.acid/L.casei/B.bif/B.philip/Fos) 1 Each Capsule 1 Cap PO DAILY Preservision Areds Tablet (Vit A/Vit C/Vit E/Zinc/Copper) 1 Each Tablet 1 Tab PO DAILY 30 Days Loperamide (Loperamide Hcl) 2 Mg Tablet 1 Mg PO PRN Q4HRS PRN Metamucil (Psyllium Husk) 0.52 Gm Capsule 1 Cap PO DAILY Dicyclomine Hcl 10 Mg Capsule 1 Cap PO PRN TID PRN Cyanocobalamin Injection (Cyanocobalamin (Vitamin B-12)) 1,000 Mcg/1 Ml Vial 1 Ml IM QMONTH Carbidopa-Levodopa 25-100 Tab (Carbidopa/Levodopa) 1 Each Tablet 2 Tab PO TID Levothyroxine Sodium 75 Mcg Tablet 1 Tab PO DAILY Aspir 81 (Aspirin) 81 Mg Tablet. 1 Tab PO DAILY Atorvastatin Calcium 10 Mg Tablet 10 Mg PO HS Vitals/I & O Vital Sign - Last 24 Hours 05/26/19 05/26/19 05/26/19 05/26/19 11:01 11:05 11:10 11:16 Temp 97.2 97.2 97.2 97.2 Pulse 75 75 Resp 16 20 B/P (MAP) 154/95 139/100 Pulse Ox 100 100 O2 Delivery Simple Mask Mask Simple Mask O2 Flow Rate 10 10 10 05/26/19 05/26/19 05/26/19 05/26/19 11:20 11:31 11:42 11:46 Pulse 72 72 Resp 19 15 22 24 B/P (MAP) 164/88 159/89 Pulse Ox 100 95 95 98 O2 Delivery Simple Mask Nasal Cannula Nasal Cannula Nasal Cannula O2 Flow Rate 10.0 2 2.0 2.0 05/26/19 05/26/19 05/26/19 05/26/19 12:01 12:15 12:25 12:30 Pulse 71 71 71 Resp 16 16 19 22 B/P (MAP) 151/86 154/90 154/95 Pulse Ox 98 98 98 98 O2 Delivery Nasal Cannula Nasal Cannula Nasal Cannula Nasal Cannula O2 Flow Rate 2.0 2.0 2.0 2.0 05/26/19 05/26/19 05/26/19 05/26/19 13:00 14:00 15:00 16:00 Temp 99.5 99.5 Pulse 81 84 76 Resp 22 12 10 B/P (MAP) 150/81 (104) 168/56 (93) 166/64 (98) Pulse Ox 95 95 96 O2 Delivery Room Air Room Air Room Air Nasal Cannula O2 Flow Rate 2.0 05/26/19 05/26/19 05/26/19 05/26/19 16:00 17:00 18:00 19:01 Temp 99.3 99.3 Pulse 76 81 75 68 Resp 16 16 22 18 B/P (MAP) 148/60 (89) 141/59 (86) 160/58 (92) 131/59 (83) Pulse Ox 96 96 95 96 O2 Delivery Room Air Room Air Room Air Nasal Cannula O2 Flow Rate 2.0 05/26/19 05/26/19 05/26/19 05/26/19 20:00 20:00 20:59 21:00 Temp 98.2 98.2 Pulse 64 86 70 Resp 18 18 B/P (MAP) 159/56 (90) 167/60 162/56 (91) Pulse Ox 95 94 O2 Delivery Nasal Cannula Nasal Cannula Nasal Cannula O2 Flow Rate 2.0 2.0 2.0 05/26/19 05/26/19 05/27/19 05/27/19 22:00 23:00 00:00 00:00 Temp 97.8 97.8 Pulse 60 60 72 Resp 18 16 18 B/P (MAP) 160/55 (90) 149/48 (81) 158/57 (90) Pulse Ox 96 96 96 O2 Delivery Nasal Cannula Nasal Cannula Nasal Cannula Nasal Cannula O2 Flow Rate 2.0 2.0 2.0 2.0 05/27/19 05/27/19 05/27/19 05/27/19 01:00 02:00 03:00 04:00 Pulse 67 59 65 Resp 16 20 16 B/P (MAP) 138/49 (78) 139/48 (78) 136/54 (81) Pulse Ox 94 94 94 O2 Delivery Nasal Cannula Nasal Cannula Nasal Cannula Nasal Cannula O2 Flow Rate 2.0 2.0 2.0 2.0 05/27/19 05/27/19 05/27/19 05/27/19 04:00 05:00 06:00 07:00 Temp 97.4 98.2 97.4 98.2 Pulse 58 71 63 73 Resp 18 18 18 16 B/P (MAP) 104/61 (75) 113/62 (79) 12/72 (52) 138/72 (94) Pulse Ox 94 95 95 95 O2 Delivery Nasal Cannula Nasal Cannula Nasal Cannula Nasal Cannula O2 Flow Rate 2.0 2.0 2.0 2.0 05/27/19 05/27/19 05/27/19 08:00 08:00 08:09 Temp 97.7 97.7 Pulse 88 64 Resp 18 B/P (MAP) 128/74 (92) 154/73 Pulse Ox 95 O2 Delivery Nasal Cannula Room Air Intake and Output 05/26/19 05/26/19 05/27/19 15:00 23:00 07:00 Intake Total 1050 ml 458 ml 1122 ml Output Total 6950 ml 335 ml 355 ml Balance -5900 ml 123 ml 767 ml HERBIE MITCHELL MD May 27, 2019 10:16
[2019-05-27] MEDS: FLUDROCORTISONE 0.1 MG TABLET PO SCH ×4 (12:06→20:36)
[2019-05-27] MEDS: LEVOTHYROXINE 75 MCG TABLET PO SCH (12:06)
--- NOTE | 2019-05-27 12:46 | PDOC ---
[facility] PROGRESS NOTE Chief Complaint Chief Complaint Large [employer] hemorrhage with subdural hematoma after fall Parkinson's disease Accelerated Hypertension Hypertension l History of Present Illness History of Present Illness 05/27/19 Pt seen and examined in the ICU Pt was awake and alert in bed He has a folly catheter to BSD Pt's reports that his memory is better today and he is also physically better His also reports he is eating ok DW pt's DW RN Pt's chart reviewed Vitals/I&O Vitals/I&O: Vital Signs Date Time Temp Pulse Resp B/P (MAP) Pulse Ox O2 Delivery O2 Flow Rate FiO2 05/27/19 10:00 97.7 57 18 142/73 (96) 95 Room Air 97.7 05/27/19 09:00 2.0 I & O 05/26/19 05/26/19 05/27/19 15:00 23:00 07:00 Intake Total 1050 ml 458 ml 1122 ml Output Total 6950 ml 335 ml 355 ml Balance -5900 ml 123 ml 767 ml Physical Exam General: Alert, Cooperative, No acute distress Heart: Regular rate Lungs: Clear Extremities: No cyanosis Skin: Other (Dressing CLEAN, DRY) Labs Labs: Laboratory Tests Test 05/26/19 13:35 05/26/19 23:00 05/27/19 05:38 Nasal Screen MRSA (PCR) Negative (Negative) Urine Collection Type Unknown Urine Color Yellow Urine Clarity Clear Urine pH 6.0 Urine Specific [place] 1.025 Urine Protein 30 mg/dL (NEG-TRACE) Urine Glucose (UA) Negative mg/dL (NEG) Urine Ketones (Stick) Negative mg/dL (NEG) Urine Blood Moderate (NEG) Urine Nitrite Negative (NEG) Urine Bilirubin Negative (NEG) Urine Urobilinogen Dipstick 1.0 mg/dL (0.2 mg/dL) Urine Leukocyte Esterase Trace (NEG) Urine RBC 6-10 /HPF (0-2) Urine WBC 11-20 /HPF (0-4) Urine Squamous Epithelial Cells Occ /LPF Urine Bacteria 0 /HPF (0-FEW) Urine Mucus Mod /LPF White Blood Count 15.5 x10^3/uL (4.0-11.0) Red Blood Count 4.39 x10^6/uL (4.30-5.70) Hemoglobin 13.7 g/dL (13.0-17.5) Hematocrit 40.3 % (39.0-53.0) Mean Corpuscular Volume 92 fL (79-100) Mean Corpuscular Hemoglobin 31 pg (25-35) Mean Corpuscular Hemoglobin Concent 34 g/dL (31-37) Red Cell Distribution Width 13.7 % (11.5-14.5) Platelet Count 158 x10^3/uL (140-400) Neutrophils (%) (Auto) 61 % (31-73) Lymphocytes (%) (Auto) 33 % (24-48) Monocytes (%) (Auto) 5 % (0-9) Eosinophils (%) (Auto) 1 % (0-3) Basophils (%) (Auto) 0 % (0-3) Neutrophils # (Auto) 9.5 x10^3/uL (1.8-7.7) Lymphocytes # (Auto) 5.1 x10^3/uL (1.0-4.8) Monocytes # (Auto) 0.7 x10^3/uL (0.0-1.1) Eosinophils # (Auto) 0.1 x10^3/uL (0.0-0.7) Basophils # (Auto) 0.0 x10^3/uL (0.0-0.2) Sodium Level 142 mmol/L (136-145) Potassium Level 2.9 mmol/L (3.5-5.1) Chloride Level 105 mmol/L (98-107) Carbon Dioxide Level 28 mmol/L (21-32) Anion Gap 9 (6-14) Blood Urea Nitrogen 11 mg/dL (8-26) Creatinine 0.7 mg/dL (0.7-1.3) Estimated GFR (Cockcroft-Gault) 107.4 BUN/Creatinine Ratio 16 (6-20) Glucose Level 126 mg/dL (70-99) Calcium Level 7.8 mg/dL (8.5-10.1) Total Bilirubin 0.7 mg/dL (0.2-1.0) Aspartate Amino Transf (AST/SGOT) 14 U/L (15-37) Alanine Aminotransferase (ALT/SGPT) < 6 U/L (16-63) Alkaline Phosphatase 51 U/L (46-116) Total Protein 5.1 g/dL (6.4-8.2) Albumin 2.8 g/dL (3.4-5.0) Albumin/Globulin Ratio 1.2 (1.0-1.7) Review of Systems Review of Systems: unable to obtain Assessment and Plan Assessmemt and Plan Problems Medical Problems: (1) Accelerated hypertension Status: Acute (2) Hypertension Status: Acute (3) Subdural hematoma Status: Acute Assessment/Plan Large [employer] hemorrhage with subdural hematoma after fall Parkinson's disease Accelerated Hypertension Hypertension Plan ICU monitoring SNU evaluation Encourage PO intake Wound care IV hydration Speech therapy Physical therapy/ occupational therapy Seizure precautions Home meds DVT prophylaxis Full code Long-term prognosis guarded He is critically ill Comment Review of Relevant I have reviewed the following items maira (where applicable) has been applied. Medications: Current Medications Medications (Trade) Dose Ordered Sig/Erika Route PRN Reason Start Time Stop Time Status Last Admin Dose Admin Docusate Sodium (Colace) 100 mg BID PO 05/26/19 21:00 05/27/19 09:19 Cefazolin Sodium (Ancef) 1 gm Q8H IVP 05/26/19 17:00 05/27/19 09:01 DC 05/27/19 09:19 Atorvastatin Calcium (Lipitor) 10 mg HS PO 05/26/19 21:00 05/26/19 20:59 Carbidopa/Levodopa (Sinemet 25/100) 2 tab TID PO 05/26/19 21:00 05/27/19 09:11 Fludrocortisone Acetate (Florinef) 0.1 mg TID PO 05/26/19 21:00 05/27/19 12:06 Hydralazine HCl (Apresoline) 25 mg TID PO 05/26/19 21:00 05/27/19 08:09 Levothyroxine Sodium (Synthroid) 75 mcg DAILY PO 05/27/19 09:00 05/27/19 12:06 Potassium Chloride (Klor-Con) 40 meq TIDWMEALS PO 05/26/19 17:00 05/27/19 09:12 Spironolactone (Aldactone) 12.5 mg DAILY PO 05/27/19 09:00 05/27/19 09:12 Lactobacillus Rhamnosus (Culturelle) 1 cap DAILY PO 05/27/19 09:00 05/27/19 09:11 Multivitamins/ Minerals (I-Quita) 2 tab DAILY PO 05/27/19 09:00 05/27/19 09:11 Potassium Chloride (Klor-Con) 40 meq 1X ONCE PO 05/27/19 07:00 05/27/19 07:01 DC 05/27/19 08:05 MAUREEN MERCADO III DO May 27, 2019 12:46
--- NOTE | 2019-05-27 15:59 | NUR ---
Patient refusing to take 1400 schedule meds until returns.
--- NOTE | 2019-05-27 17:07 | PATHOLOGY ---
[facility] Accession Number: [id number] . 01 Material submitted: . head - SUBDURAL MEMBRANE . 01 Clinical history: . Left subdural hematoma . 02 Diagnosis: Left subdural hematoma evacuation: - Segments of membranous tissue containing proliferating fibroblasts and capillaries, focal hemosiderophages, and showing focal chronic inflammation and increased eosinophils, consistent with subdural hematoma membrane. . (JPM:mm; 05/27/2019) [facility] 05/27/2019 0942 Local . 02 Comment: There is no evidence of malignancy. . (JPM:mml; 05/27/2019) . 02 Electronically signed: . Joe Juares MD, Pathologist NPI- [id number] . 01 Gross description: . The specimen is received in formalin, labeled "Bonifacio Sascha, subdural membrane". Received are two segments of pink-moralez membranous tissue measuring 1.4 x 1.0 x 0.2 cm in aggregate dimensions. The specimen is submitted entirely in cassette A1. ([facility]; 05/26/2019) QA/QA 05/26/2019 1729 Local . 02 Pathologist provided ICD-10: S06.5X0A . 02 CPT . 996472 Specimen Comment: A courtesy copy of this report has been sent to [phone], [phone] Specimen Comment: [phone], Specimen Comment: Report sent to ,DR ROJAS / DR CLAY Performed at: 01 [facility] [address], [place], [place] [id number] MD Cornelio Maldonado MD Phone: [phone] Performed at: 02 [facility] [address] [place], [place] [id number] MD Joe Juares MD Phone: [phone]
[2019-05-27] MEDS: ATORVASTATIN CALCIUM 10 MG TABLET. PO SCH (20:36)
--- NOTE | 2019-05-27 23:19 | CONS ---
DATE OF CONSULTATION: 05/27/2019 ATTENDING PHYSICIAN: Dr. Israel. REASON FOR CONSULTATION: The patient was seen at the request of Dr. Cid for rehab evaluation. HISTORY OF PRESENT ILLNESS: This is an 83-year-old male with Parkinson's disease, decreased acuity of hearing, had a fall at home onto carpet, developed mental status changes after the fall. He was admitted on 05/26/2019, was found on CT scan with subdural hematoma, which was evacuated by craniotomy on the same day. The patient denies any headaches. The patient apparently had some problems with ambulation despite using a roller walker, he is not safe and he had some urinary incontinence. PAST MEDICAL HISTORY: Significant for coronary artery disease, irritable bowel syndrome, urinary tract infections, carcinoma of prostate, cardiac arrhythmia, MRSA, C. diff., carcinoma of skin. PAST SURGICAL HISTORY: The patient is status post appendectomy, cholecystectomy, coronary artery bypass surgery and permanent pacemaker placement. ALLERGIES: THE PATIENT IS KNOWN ALLERGIC TO MEPERIDINE. FAMILY HISTORY: The patient had a family history of coronary artery disease. PHYSICAL EXAMINATION: Today revealed an elderly male. He is alert, oriented to place and person, follows commands appropriately, moves all 4 extremities voluntarily where he had 4+/5 grade muscle strength and deep tendon reflexes are 1-2+ and symmetrical and he had equal perception of touch and pinprick sensation bilaterally. He is independent with bed mobility and transfers and up walking, pushing a wheelchair. I did not see any loss of balance. He had dressing to his scars. He had an indwelling Dailey catheter in place. ASSESSMENT: Elderly male with known Parkinson's disease with ataxia. The patient is status post recent fall and chronic and subacute subdural hematoma status post craniotomy and evacuation. The patient is also with carcinoma of prostate and obstructive uropathy and urinary incontinence. RECOMMENDATIONS: Agree with the plan for physical therapy and occupational therapy to get him up as tolerated and to discontinue indwelling Dailey catheter and start him on a bladder training program. To consider transfer to correction care unit or rehab unit depending upon his participation in therapy in the next few days. Dr. Cid, I appreciate asking me to participate in the care of this interesting patient. I will be glad to follow him with you as needed for the rehabilitation. PETRA LION MD DR: ODALYS/jewels JOB#: [id number] / [id number]
[2019-05-28] MEDS: ACETAMINOPHEN 325 MG TABLET. PO PRN ×2 (00:10→20:00)
[2019-05-28] MEDS: POTASSIUM CL 20MEQ D5-0.45NACL 1,000 ML IV SCH (03:00)
[2019-05-28 03:01] VITALS: BP 159/88
[2019-05-28 04:27] LABS: BASO # 0.1 x10^3/uL (0.0-0.2); BASO % 0 % (0-3); EOS # 0.2 x10^3/uL (0.0-0.7); EOS % 1 % (0-3); HEMATOCRIT 46.6 % (39.0-53.0); HEMOGLOBIN 15.9 g/dL (13.0-17.5); LYMPH # 6.4 x10^3/uL (1.0-4.8); LYMPH % 39 % (24-48); MEAN CORPUSCULAR HEMOGLOBIN 31 pg (25-35); MEAN CORPUSCULAR HGB CONC 34 g/dL (31-37); MEAN CORPUSCULAR VOLUME 92 fL (79-100); MONO # 0.8 x10^3/uL (0.0-1.1); MONO % 5 % (0-9); NEUT # 8.8 x10^3/uL (1.8-7.7); NEUT % 54 % (31-73); PLATELET COUNT 188 x10^3/uL (140-400); RED BLOOD COUNT 5.08 x10^6/uL (4.30-5.70); RED CELL DISTRIBUTION WIDTH 14.2 % (11.5-14.5); WHITE BLOOD COUNT 16.3 x10^3/uL (4.0-11.0)
[2019-05-28 04:37] LABS: CREATININE 0.8 mg/dL (0.7-1.3); GFR 92.1; POTASSIUM 3.5 mmol/L (3.5-5.1)
--- NOTE | 2019-05-28 07:45 | NUR ---
pt awake all NOC , fall precaution in placed, Dailey cath removed at 0300, pt voided clear urine post cath removal. Had BM this am.
[2019-05-28 07:47] VITALS: BP 157/96
--- NOTE | 2019-05-28 08:07 | PATHOLOGY ---
Note [facility] Accession Number: [id number] TESTS RESULT FLAG UNITS REF RANGE LAB Clinician Provided Cytology Information No. of containers..01 Other (Miscellaneous) Source: 01 SUBDURAL HEMATOMA DIAGNOSIS: 02 SUBDURAL HEMATOMA NEGATIVE FOR MALIGNANT CELLS. ABUNDANT RED BLOOD CELLS, LYMPHOCYTES, HISTIOCYTES, EOSINOPHILS, AND FEW NEUTROPHILS PRESENT. THIS INTERPRETATION INCLUDES EVALUATION OF A CELL BLOCK. Signed out by: 02 Joe Juares MD, Pathologist NPI- [id number] Performed by: 01 Camila Gonzales, Manager Floor ([facility]) Gross description: 01 23 ML, RED, BLOODY /LCS 05/26/2019 1700 Local FLAG LEGEND: L-Low Normal,H-High Normal,LL-Alert Low,HH-Alert High <-Panic Low,>-Panic High,A-Abnormal,AA-Critical Abnormal Performed at: 01 [facility] [place] [address] [place] [address] Cornelio Maldonado MD, 02 [facility] [address] [place] [address] Joe Juares MD, Specimen Comment: A courtesy copy of this report has been sent to [phone] Specimen Comment: [id number] Specimen Comment: [id number] Specimen Comment: Report sent to / DR ROJAS Performed at: 01 [facility] [place] [address], [place], [place] [id number] MD Cornelio Maldonado MD Phone: [phone]
--- NOTE | 2019-05-28 09:21 | PDOC ---
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 Parkinson's disease Accelerated Hypertension Hypertension l History of Present Illness History of Present Illness 05/28/19 Pt seen and examined Pt was awake and alert in bed He has a folly catheter to BSD may need snf DW pt's DW RN Pt's chart reviewed Vitals Vitals Vital Signs Date Time Temp Pulse Resp B/P (MAP) Pulse Ox O2 Delivery O2 Flow Rate FiO2 05/28/19 08:00 Room Air 05/28/19 07:47 97.6 82 16 157/96 (116) 94 97.6 05/27/19 12:00 2.0 Physical Exam General: Alert, Cooperative, No acute distress Heart: Regular rate Lungs: Clear Extremities: No cyanosis Skin: Other (Dressing CLEAN, DRY) Labs LABS EXAM: CT Head without IV contrast CLINICAL HISTORY: Fall COMPARISON: 12/28/2015 TECHNIQUE: Routine CT of the head without contrast. Soft tissues and bone windows were reviewed. PQRS compliance statement - One or more of the following individualized dose reduction techniques were utilized for this study: 1. Automated exposure control 2. Adjustment of the mA and/or kV according to patient size 3. Use of iterative reconstruction technique FINDINGS: Findings of prominent left subdural hematoma is seen measuring 3.2 cm in thickness. In addition there is approximately 14 mm left to right midline shift. Basilar cisterns are grossly preserved. Lara-white differentiation is maintained with no evidence of edema. The cerebellum and brainstem are unremarkable. The calvarium demonstrates no evidence of fracture or focal lesion. There is normal aeration of the visualized paranasal sinuses and mastoid air cells. The visualized portions of the orbits are normal. IMPRESSION: Acute left subdural hematoma measuring 3.2 cm in thickness and approximately 14 mm left to right subfalcine herniation. Findings discussed with REGIS ESCOBAR at 05/26/2019 5:19 AM. FOR INTERNAL CODING PURPOSES Laboratory Tests Test 05/27/19 15:15 05/28/19 04:05 Potassium Level 3.8 mmol/L (3.5-5.1) 3.5 mmol/L (3.5-5.1) White Blood Count 16.3 x10^3/uL (4.0-11.0) Red Blood Count 5.08 x10^6/uL (4.30-5.70) Hemoglobin 15.9 g/dL (13.0-17.5) Hematocrit 46.6 % (39.0-53.0) Mean Corpuscular Volume 92 fL (79-100) Mean Corpuscular Hemoglobin 31 pg (25-35) Mean Corpuscular Hemoglobin Concent 34 g/dL (31-37) Red Cell Distribution Width 14.2 % (11.5-14.5) Platelet Count 188 x10^3/uL (140-400) Neutrophils (%) (Auto) 54 % (31-73) Lymphocytes (%) (Auto) 39 % (24-48) Monocytes (%) (Auto) 5 % (0-9) Eosinophils (%) (Auto) 1 % (0-3) Basophils (%) (Auto) 0 % (0-3) Neutrophils # (Auto) 8.8 x10^3/uL (1.8-7.7) Lymphocytes # (Auto) 6.4 x10^3/uL (1.0-4.8) Monocytes # (Auto) 0.8 x10^3/uL (0.0-1.1) Eosinophils # (Auto) 0.2 x10^3/uL (0.0-0.7) Basophils # (Auto) 0.1 x10^3/uL (0.0-0.2) Sodium Level 142 mmol/L (136-145) Chloride Level 104 mmol/L (98-107) Carbon Dioxide Level 26 mmol/L (21-32) Anion Gap 12 (6-14) Blood Urea Nitrogen 11 mg/dL (8-26) Creatinine 0.8 mg/dL (0.7-1.3) Estimated GFR (Cockcroft-Gault) 92.1 Glucose Level 123 mg/dL (70-99) Calcium Level 9.0 mg/dL (8.5-10.1) Assessment and Plan Assessmemt and Plan Problems Medical Problems: (1) Accelerated hypertension Status: Acute (2) Hypertension Status: Acute (3) Subdural hematoma Status: Acute Visit Type * screen 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 * Adm w/L acute and chronic SDH; 05/26 Left central craniotomy with evacuation of subdural hematoma and placement of subdural drain. PMHx: CAD, IBS, UTI, PROSTATE CANCER, HEART ARRTHYMIAS, MRSA, CDiff, skin cancer, Parkinson's, Appendectomy, Cholecystectomy, Coronary Bypass Surgery Reason For Referral * communication impairments prior to surgery per Behavioral Characteristics * Alert Current Diet Consistency * Regular Current Liquid Consistency * thin Other Related Factors * reports improved speech and overall communication p.surgery Pain Score * 0 Pain Scale Type * Descriptive * PAINAD Formal Assessment Measures * Grossly oriented xPPT w/exception of day, season Assessment Measures Comments * Will f/u w/pt & re:potential need for communication eval. Comment Review of Relevant I have reviewed the following items maira (where applicable) has been applied. Labs Laboratory Tests Test 05/26/19 13:35 05/26/19 23:00 05/27/19 05:38 05/27/19 15:15 Nasal Screen MRSA (PCR) Negative (Negative) Urine Collection Type Unknown Urine Color Yellow Urine Clarity Clear Urine pH 6.0 Urine Specific [place] 1.025 Urine Protein 30 mg/dL (NEG-TRACE) Urine Glucose (UA) Negative mg/dL (NEG) Urine Ketones (Stick) Negative mg/dL (NEG) Urine Blood Moderate (NEG) Urine Nitrite Negative (NEG) Urine Bilirubin Negative (NEG) Urine Urobilinogen Dipstick 1.0 mg/dL (0.2 mg/dL) Urine Leukocyte Esterase Trace (NEG) Urine RBC 6-10 /HPF (0-2) Urine WBC 11-20 /HPF (0-4) Urine Squamous Epithelial Cells Occ /LPF Urine Bacteria 0 /HPF (0-FEW) Urine Mucus Mod /LPF White Blood Count 15.5 x10^3/uL (4.0-11.0) Red Blood Count 4.39 x10^6/uL (4.30-5.70) Hemoglobin 13.7 g/dL (13.0-17.5) Hematocrit 40.3 % (39.0-53.0) Mean Corpuscular Volume 92 fL (79-100) Mean Corpuscular Hemoglobin 31 pg (25-35) Mean Corpuscular Hemoglobin Concent 34 g/dL (31-37) Red Cell Distribution Width 13.7 % (11.5-14.5) Platelet Count 158 x10^3/uL (140-400) Neutrophils (%) (Auto) 61 % (31-73) Lymphocytes (%) (Auto) 33 % (24-48) Monocytes (%) (Auto) 5 % (0-9) Eosinophils (%) (Auto) 1 % (0-3) Basophils (%) (Auto) 0 % (0-3) Neutrophils # (Auto) 9.5 x10^3/uL (1.8-7.7) Lymphocytes # (Auto) 5.1 x10^3/uL (1.0-4.8) Monocytes # (Auto) 0.7 x10^3/uL (0.0-1.1) Eosinophils # (Auto) 0.1 x10^3/uL (0.0-0.7) Basophils # (Auto) 0.0 x10^3/uL (0.0-0.2) Sodium Level 142 mmol/L (136-145) Potassium Level 2.9 mmol/L (3.5-5.1) 3.8 mmol/L (3.5-5.1) Chloride Level 105 mmol/L (98-107) Carbon Dioxide Level 28 mmol/L (21-32) Anion Gap 9 (6-14) Blood Urea Nitrogen 11 mg/dL (8-26) Creatinine 0.7 mg/dL (0.7-1.3) Estimated GFR (Cockcroft-Gault) 107.4 BUN/Creatinine Ratio 16 (6-20) Glucose Level 126 mg/dL (70-99) Calcium Level 7.8 mg/dL (8.5-10.1) Total Bilirubin 0.7 mg/dL (0.2-1.0) Aspartate Amino Transf (AST/SGOT) 14 U/L (15-37) Alanine Aminotransferase (ALT/SGPT) < 6 U/L (16-63) Alkaline Phosphatase 51 U/L (46-116) Total Protein 5.1 g/dL (6.4-8.2) Albumin 2.8 g/dL (3.4-5.0) Albumin/Globulin Ratio 1.2 (1.0-1.7) Test 05/28/19 04:05 White Blood Count 16.3 x10^3/uL (4.0-11.0) Red Blood Count 5.08 x10^6/uL (4.30-5.70) Hemoglobin 15.9 g/dL (13.0-17.5) Hematocrit 46.6 % (39.0-53.0) Mean Corpuscular Volume 92 fL (79-100) Mean Corpuscular Hemoglobin 31 pg (25-35) Mean Corpuscular Hemoglobin Concent 34 g/dL (31-37) Red Cell Distribution Width 14.2 % (11.5-14.5) Platelet Count 188 x10^3/uL (140-400) Neutrophils (%) (Auto) 54 % (31-73) Lymphocytes (%) (Auto) 39 % (24-48) Monocytes (%) (Auto) 5 % (0-9) Eosinophils (%) (Auto) 1 % (0-3) Basophils (%) (Auto) 0 % (0-3) Neutrophils # (Auto) 8.8 x10^3/uL (1.8-7.7) Lymphocytes # (Auto) 6.4 x10^3/uL (1.0-4.8) Monocytes # (Auto) 0.8 x10^3/uL (0.0-1.1) Eosinophils # (Auto) 0.2 x10^3/uL (0.0-0.7) Basophils # (Auto) 0.1 x10^3/uL (0.0-0.2) Sodium Level 142 mmol/L (136-145) Potassium Level 3.5 mmol/L (3.5-5.1) Chloride Level 104 mmol/L (98-107) Carbon Dioxide Level 26 mmol/L (21-32) Anion Gap 12 (6-14) Blood Urea Nitrogen 11 mg/dL (8-26) Creatinine 0.8 mg/dL (0.7-1.3) Estimated GFR (Cockcroft-Gault) 92.1 Glucose Level 123 mg/dL (70-99) Calcium Level 9.0 mg/dL (8.5-10.1) Laboratory Tests Test 05/27/19 15:15 05/28/19 04:05 Potassium Level 3.8 mmol/L (3.5-5.1) 3.5 mmol/L (3.5-5.1) White Blood Count 16.3 x10^3/uL (4.0-11.0) Red Blood Count 5.08 x10^6/uL (4.30-5.70) Hemoglobin 15.9 g/dL (13.0-17.5) Hematocrit 46.6 % (39.0-53.0) Mean Corpuscular Volume 92 fL (79-100) Mean Corpuscular Hemoglobin 31 pg (25-35) Mean Corpuscular Hemoglobin Concent 34 g/dL (31-37) Red Cell Distribution Width 14.2 % (11.5-14.5) Platelet Count 188 x10^3/uL (140-400) Neutrophils (%) (Auto) 54 % (31-73) Lymphocytes (%) (Auto) 39 % (24-48) Monocytes (%) (Auto) 5 % (0-9) Eosinophils (%) (Auto) 1 % (0-3) Basophils (%) (Auto) 0 % (0-3) Neutrophils # (Auto) 8.8 x10^3/uL (1.8-7.7) Lymphocytes # (Auto) 6.4 x10^3/uL (1.0-4.8) Monocytes # (Auto) 0.8 x10^3/uL (0.0-1.1) Eosinophils # (Auto) 0.2 x10^3/uL (0.0-0.7) Basophils # (Auto) 0.1 x10^3/uL (0.0-0.2) Sodium Level 142 mmol/L (136-145) Chloride Level 104 mmol/L (98-107) Carbon Dioxide Level 26 mmol/L (21-32) Anion Gap 12 (6-14) Blood Urea Nitrogen 11 mg/dL (8-26) Creatinine 0.8 mg/dL (0.7-1.3) Estimated GFR (Cockcroft-Gault) 92.1 Glucose Level 123 mg/dL (70-99) Calcium Level 9.0 mg/dL (8.5-10.1) Medications Current Medications Sodium Chloride 1,000 ml @ 1,000 mls/hr Q1H IV Last administered on 05/26/19at 04:52; Start 05/26/19 at 04:30; Stop 05/26/19 at 05:29; Status DC Labetalol HCl (Normodyne Iv Push) 10 mg 1X ONCE IVP Last administered on 05/26/19at 05:42; Start 05/26/19 at 05:45; Stop 05/26/19 at 05:46; Status DC Ondansetron HCl (Zofran) 4 mg PRN Q8HRS PRN IV NAUSEA/VOMITING; Start 05/26/19 at 05:45; Stop 05/27/19 at 05:44; Status DC Nicardipine HCl 50 mg/Sodium Chloride 250 ml @ 25 mls/hr CONT PRN IV SEE I/O RECORD Last administered on 05/26/19at 20:41; Start 05/26/19 at 05:45 Bacitracin 53206 unit/Sodium Chloride 1,000 ml @ 1,000 mls/hr 1X ONCE IRR Last administered on 05/26/19at 09:53; Start 05/26/19 at 08:00; Stop 05/26/19 at 08:59; Status DC Gelatin (Gelfoam Size 100) 1 each STK-MED ONCE .ROUTE Last administered on 05/26/19at 09:53; Start 05/26/19 at 07:17; Stop 05/26/19 at 07:18; Status DC Bupivacaine HCl/ Epinephrine Bitart (Sensorcain-Epi 0.5%-1:591700 Mpf) 30 ml STK-MED ONCE .ROUTE Last administered on 05/26/19at 09:53; Start 05/26/19 at 07:17; Stop 05/26/19 at 07:18; Status DC Cellulose (Surgicel Hemostat 4x8) 1 each STK-MED ONCE .ROUTE ; Start 05/26/19 at 07:18; Stop 05/26/19 at 07:18; Status DC Thrombin 20,000 unit STK-MED ONCE TP Last administered on 05/26/19at 09:53; Start 05/26/19 at 07:18; Stop 05/26/19 at 07:18; Status DC Fentanyl Citrate (Fentanyl 2ml Vial) 100 mcg STK-MED ONCE .ROUTE ; Start 05/26/19 at 07:19; Stop 05/26/19 at 07:19; Status DC Propofol 20 ml @ As Directed STK-MED ONCE IV ; Start 05/26/19 at 07:19; Stop 05/26/19 at 07:20; Status DC Dexamethasone Sodium Phosphate (Decadron) 20 mg STK-MED ONCE .ROUTE ; Start 05/26/19 at 07:19; Stop 05/26/19 at 07:20; Status DC Ondansetron HCl (Zofran) 4 mg STK-MED ONCE .ROUTE ; Start 05/26/19 at 07:20; Stop 05/26/19 at 07:20; Status DC Lidocaine HCl (Lidocaine Pf 2% Vial) 5 ml STK-MED ONCE .ROUTE ; Start 05/26/19 at 07:20; Stop 05/26/19 at 07:20; Status DC Phenylephrine HCl (PHENYLEPHRINE in 0.9% NACL PF) 1 mg STK-MED ONCE IV ; Start 05/26/19 at 07:21; Stop 05/26/19 at 07:21; Status DC Desflurane (Suprane) 60 ml STK-MED ONCE IH ; Start 05/26/19 at 07:21; Stop 05/26/19 at 07:21; Status DC Mannitol (Mannitol) 12.5 g STK-MED ONCE .ROUTE ; Start 05/26/19 at 08:11; Stop 05/26/19 at 08:11; Status DC Ondansetron HCl (Zofran) 4 mg PRN Q6HRS PRN IV NAUSEA/VOMITING; Start 05/26/19 at 08:30; Stop 05/26/19 at 19:13; Status DC Fentanyl Citrate (Fentanyl 2ml Vial) 25 mcg PRN Q5MIN PRN IV MILD PAIN 1-3 Last administered on 05/26/19at 12:25; Start 05/26/19 at 08:30; Stop 05/26/19 at 19:13; Status DC Fentanyl Citrate (Fentanyl 2ml Vial) 50 mcg PRN Q5MIN PRN IV MODERATE TO SEVERE PAIN; Start 05/26/19 at 08:30; Stop 05/26/19 at 19:13; Status DC Morphine Sulfate (Morphine Sulfate) 1 mg PRN Q10MIN PRN IV SEVERE PAIN 7-10; Start 05/26/19 at 08:30; Stop 05/26/19 at 19:13; Status DC Ringer's Solution 1,000 ml @ 30 mls/hr Q24H IV Last administered on 05/26/19at 12:50; Start 05/26/19 at 08:28; Stop 05/26/19 at 19:09; Status DC Hydromorphone HCl (Dilaudid) 0.5 mg PRN Q10MIN PRN IV SEV PAIN, Second choice; Start 05/26/19 at 08:30; Stop 05/26/19 at 19:13; Status DC Prochlorperazine Edisylate (Compazine) 5 mg PACU PRN PRN IV NAUSEA, MRX1; Start 05/26/19 at 08:30; Stop 05/26/19 at 19:13; Status DC Cefazolin Sodium/ Dextrose 50 ml @ 100 mls/hr 1X ONCE IV Last administered on 05/26/19at 09:01; Start 05/26/19 at 09:00; Stop 05/26/19 at 09:29; Status DC Rocuronium [place] (Zemuron) 50 mg STK-MED ONCE .ROUTE ; Start 05/26/19 at 09:32; Stop 05/26/19 at 09:32; Status DC Glycopyrrolate (Robinul) 1 mg STK-MED ONCE .ROUTE ; Start 05/26/19 at 09:32; Stop 05/26/19 at 09:33; Status DC Neostigmine [place] (Neostigmine Methylsulfate) 5 mg STK-MED ONCE .ROUTE ; Start 05/26/19 at 09:32; Stop 05/26/19 at 09:33; Status DC Al Hydroxide/Mg Hydroxide (Mylanta Plus Xs) 30 ml PRN Q3HRS PRN PO HEARTBURN / GAS; Start 05/26/19 at 10:00 Calcium Carbonate/ Glycine (Tums) 500 mg PRN Q3HRS PRN PO INDIGESTION; Start 05/26/19 at 10:00 Sodium Chloride (Normal Saline Flush) 3 ml QSHIFT PRN IV AFTER MEDS AND BLOOD DRAWS; Start 05/26/19 at 10:00 Potassium Chloride/Dextrose/ Sod Cl 1,000 ml @ 75 mls/hr [id number] IV Last a dministered on 05/27/19at 23:36; Start 05/26/19 at 11:00 Dextrose (Dextrose 50%-Water Syringe) 12.5 gm PRN Q15MIN PRN IV SEE COMMENTS; Start 05/26/19 at 10:00 Dextrose (Iv Dextrose 5%) 250 ml PRN Q15MIN PRN IV SEE COMMENTS; Start 05/26/19 at 10:00 Acetaminophen/ Hydrocodone Bitart (Lortab 5/325) 1 tab PRN Q4HRS PRN PO MILD PAIN 1-3; Start 05/26/19 at 10:00 Docusate Sodium (Colace) 100 mg BID PO Last administered on 05/27/19at 20:44; Start 05/26/19 at 21:00 Cefazolin Sodium (Ancef) 1 gm Q8H IVP Last administered on 05/27/19at 09:19; Start 05/26/19 at 17:00; Stop 05/27/19 at 09:01; Status DC Acetaminophen (Tylenol) 650 mg PRN Q6HRS PRN PO HEADACHE/FEVER Last administered on 05/28/19at 00:10; Start 05/26/19 at 10:00 Morphine Sulfate (Morphine Sulfate) 2 mg PRN Q2HR PRN IV PAIN; Start 05/26/19 at 10:15 Fentanyl Citrate (Fentanyl 2ml Vial) 100 mcg STK-MED ONCE .ROUTE ; Start 05/26/19 at 10:12; Stop 05/26/19 at 10:13; Status DC Midazolam HCl (Versed) 2 mg STK-MED ONCE .ROUTE ; Start 05/26/19 at 14:08; Stop 05/26/19 at 14:08; Status DC Atorvastatin Calcium (Lipitor) 10 mg HS PO Last administered on 05/27/19at 20:36; Start 05/26/19 at 21:00 Carbidopa/Levodopa (Sinemet 25/100) 2 tab TID PO Last administered on 05/27/19at 20:35; Start 05/26/19 at 21:00 Cyanocobalamin (Vitamin B-12) 1,000 mcg QMONTH IM ; Start 06/25/19 at 09:00 Dicyclomine HCl (Bentyl) 10 mg PRN TID PRN PO DIARRHEA; Start 05/26/19 at 16:00 Fludrocortisone Acetate (Florinef) 0.1 mg TID PO Last administered on 05/27/19at 20:36; Start 05/26/19 at 21:00 Hydralazine HCl (Apresoline) 25 mg TID PO Last administered on 05/27/19at 20:36; Start 05/26/19 at 21:00 Levothyroxine Sodium (Synthroid) 75 mcg DAILY PO Last administered on 05/27/19at 12:06; Start 05/27/19 at 09:00 Potassium Chloride (Klor-Con) 40 meq TIDWMEALS PO Last administered on 05/27/19at 19:06; Start 05/26/19 at 17:00 Spironolactone (Aldactone) 12.5 mg DAILY PO Last administered on 05/27/19at 09:12; Start 05/27/19 at 09:00 Lactobacillus Rhamnosus (Culturelle) 1 cap DAILY PO Last administered on 05/27/19at 09:11; Start 05/27/19 at 09:00 Multivitamins/ Minerals (I-Quita) 2 tab DAILY PO Last administered on 05/27/19at 09:11; Start 05/27/19 at 09:00 Potassium Chloride (Klor-Con) 40 meq 1X ONCE PO Last administered on 05/27/19at 08:05; Start 05/27/19 at 07:00; Stop 05/27/19 at 07:01; Status DC Potassium Chloride (Klor-Con) 40 meq Q2H PO ; Start 05/27/19 at 10:00; Stop 05/27/19 at 12:01; Status DC Potassium Chloride (Klor-Con) 40 meq Q2H PO ; Start 05/27/19 at 07:00; Stop 05/27/19 at 11:01; Status UNV Active Scripts Active Klor-Con M20 (Potassium Chloride) 20 Meq Tab.er.prt 40 Meq PO TIDWMEALS Hydralazine Hcl 25 Mg Tablet 25 Mg PO TID Reported Preservision Areds Tablet (Vit A/Vit C/Vit E/Zinc/Copper) 1 Each Tablet 2 Tab PO DAILY 30 Days Fludrocortisone Acetate 0.1 Mg Tablet 0.1 Mg PO TID Spironolactone 25 Mg Tablet 0.5 Tab PO DAILY Probiotic Blend Capsule (L.acid/L.casei/B.bif/B.philip/Fos) 1 Each Capsule 1 Cap PO DAILY Preservision Areds Tablet (Vit A/Vit C/Vit E/Zinc/Copper) 1 Each Tablet 1 Tab PO DAILY 30 Days Loperamide (Loperamide Hcl) 2 Mg Tablet 1 Mg PO PRN Q4HRS PRN Metamucil (Psyllium Husk) 0.52 Gm Capsule 1 Cap PO DAILY Dicyclomine Hcl 10 Mg Capsule 1 Cap PO PRN TID PRN Cyanocobalamin Injection (Cyanocobalamin (Vitamin B-12)) 1,000 Mcg/1 Ml Vial 1 Ml IM QMONTH Carbidopa-Levodopa 25-100 Tab (Carbidopa/Levodopa) 1 Each Tablet 2 Tab PO TID Levothyroxine Sodium 75 Mcg Tablet 1 Tab PO DAILY Aspir 81 (Aspirin) 81 Mg Tablet. 1 Tab PO DAILY Atorvastatin Calcium 10 Mg Tablet 10 Mg PO HS Vitals/I & O Vital Sign - Last 24 Hours 05/27/19 05/27/19 05/27/19 05/27/19 10:00 12:00 12:00 14:00 Temp 97.7 97.7 97.7 97.7 Pulse 57 56 63 Resp 18 18 B/P (MAP) 142/73 (96) 156/79 (104) 141/48 Pulse Ox 95 95 O2 Delivery Room Air Room Air Room Air O2 Flow Rate 2.0 05/27/19 05/27/19 05/27/19 05/27/19 16:00 19:00 20:00 20:36 Temp 98.2 98.6 98.2 98.6 Pulse 63 71 63 Resp 18 18 B/P (MAP) 141/48 (79) 168/93 (118) 141/48 Pulse Ox 94 93 O2 Delivery Room Air Room Air Room Air 05/27/19 05/28/19 05/28/19 05/28/19 23:00 03:01 07:47 08:00 Temp 98.4 97.9 97.6 98.4 97.9 97.6 Pulse 73 88 82 Resp 16 20 16 B/P (MAP) 176/95 (122) 159/88 (111) 157/96 (116) Pulse Ox 94 94 94 O2 Delivery Room Air Room Air Room Air Room Air Intake and Output 05/27/19 05/27/19 05/28/19 15:00 23:00 07:00 Intake Total 120 ml 780 ml Output Total 1030 ml 700 ml Balance -910 ml 80 ml JONO SWIFT MD May 28, 2019 09:21
[2019-05-28] MEDS: CARBIDOPA/LEVODOPA 25/100MG TABLET PO SCH ×3 (09:51→20:00)
[2019-05-28] MEDS: LEVOTHYROXINE 75 MCG TABLET PO SCH (09:51)
[2019-05-28] MEDS: POTASSIUM CHLORIDE 20 MEQ TABLET.ER. PO SCH ×3 (09:51→17:54)
[2019-05-28] MEDS: MULTIVITAMIN I-VITE TABLET. PO SCH (09:52)
[2019-05-28] MEDS: LACTOBACILLUS RHAMNOSUS GG 1 CAPSULE. PO SCH (09:52)
[2019-05-28] MEDS: hydrALAZINE 25 MG TABLET PO SCH ×3 (09:52→20:01)
[2019-05-28] MEDS: SPIRONOLACTONE 25 MG TABLET PO SCH (09:53)
[2019-05-28] MEDS: DOCUSATE SODIUM 100 MG CAPSULE. PO SCH ×2 (09:54→20:01)
[2019-05-28] MEDS: FLUDROCORTISONE 0.1 MG TABLET PO SCH ×3 (09:54→20:01)
[2019-05-28 11:17] VITALS: BP 153/87
--- NOTE | 2019-05-28 11:33 | NUR ---
Post void residual 94cc.
--- NOTE | 2019-05-28 12:32 | PDOC ---
PROGRESS NOTES Subjective Subjective POD #2 up in chair alert, no complaints Objective Objective Vital Signs Date Time Temp Pulse Resp B/P (MAP) Pulse Ox O2 Delivery O2 Flow Rate FiO2 05/28/19 11:17 97.5 73 16 153/87 (109) 96 Room Air 97.5 05/27/19 12:00 2.0 Intake and Output 05/28/19 07:00 Intake Total 900 ml Output Total 1730 ml Balance -830 ml Intake Oral 900 ml Output Urine Total 1730 ml Physical Exam General: Alert, Cooperative, No acute distress, Other (Answers questions appropriately) MUSCULOSKELETAL: Other (BONE) Neuro: Normal speech Skin: Other (incision dry) Assessment Assessment Problems Medical Problems: (1) Accelerated hypertension Status: Acute (2) Hypertension Status: Acute (3) Subdural hematoma Status: Acute Plan Plan of Care continue PT/ OT Dr. Cao following will likely need SNF will follow up in office in [address] head and for staple removal Comment Review of Relevant I have reviewed the following items maira (where applicable) has been applied. Labs Laboratory Tests Test 05/26/19 13:35 05/26/19 23:00 05/27/19 05:38 05/27/19 15:15 Nasal Screen MRSA (PCR) Negative (Negative) Urine Collection Type Unknown Urine Color Yellow Urine Clarity Clear Urine pH 6.0 Urine Specific [place] 1.025 Urine Protein 30 mg/dL (NEG-TRACE) Urine Glucose (UA) Negative mg/dL (NEG) Urine Ketones (Stick) Negative mg/dL (NEG) Urine Blood Moderate (NEG) Urine Nitrite Negative (NEG) Urine Bilirubin Negative (NEG) Urine Urobilinogen Dipstick 1.0 mg/dL (0.2 mg/dL) Urine Leukocyte Esterase Trace (NEG) Urine RBC 6-10 /HPF (0-2) Urine WBC 11-20 /HPF (0-4) Urine Squamous Epithelial Cells Occ /LPF Urine Bacteria 0 /HPF (0-FEW) Urine Mucus Mod /LPF White Blood Count 15.5 x10^3/uL (4.0-11.0) Red Blood Count 4.39 x10^6/uL (4.30-5.70) Hemoglobin 13.7 g/dL (13.0-17.5) Hematocrit 40.3 % (39.0-53.0) Mean Corpuscular Volume 92 fL (79-100) Mean Corpuscular Hemoglobin 31 pg (25-35) Mean Corpuscular Hemoglobin Concent 34 g/dL (31-37) Red Cell Distribution Width 13.7 % (11.5-14.5) Platelet Count 158 x10^3/uL (140-400) Neutrophils (%) (Auto) 61 % (31-73) Lymphocytes (%) (Auto) 33 % (24-48) Monocytes (%) (Auto) 5 % (0-9) Eosinophils (%) (Auto) 1 % (0-3) Basophils (%) (Auto) 0 % (0-3) Neutrophils # (Auto) 9.5 x10^3/uL (1.8-7.7) Lymphocytes # (Auto) 5.1 x10^3/uL (1.0-4.8) Monocytes # (Auto) 0.7 x10^3/uL (0.0-1.1) Eosinophils # (Auto) 0.1 x10^3/uL (0.0-0.7) Basophils # (Auto) 0.0 x10^3/uL (0.0-0.2) Sodium Level 142 mmol/L (136-145) Potassium Level 2.9 mmol/L (3.5-5.1) 3.8 mmol/L (3.5-5.1) Chloride Level 105 mmol/L (98-107) Carbon Dioxide Level 28 mmol/L (21-32) Anion Gap 9 (6-14) Blood Urea Nitrogen 11 mg/dL (8-26) Creatinine 0.7 mg/dL (0.7-1.3) Estimated GFR (Cockcroft-Gault) 107.4 BUN/Creatinine Ratio 16 (6-20) Glucose Level 126 mg/dL (70-99) Calcium Level 7.8 mg/dL (8.5-10.1) Total Bilirubin 0.7 mg/dL (0.2-1.0) Aspartate Amino Transf (AST/SGOT) 14 U/L (15-37) Alanine Aminotransferase (ALT/SGPT) < 6 U/L (16-63) Alkaline Phosphatase 51 U/L (46-116) Total Protein 5.1 g/dL (6.4-8.2) Albumin 2.8 g/dL (3.4-5.0) Albumin/Globulin Ratio 1.2 (1.0-1.7) Test 05/28/19 04:05 White Blood Count 16.3 x10^3/uL (4.0-11.0) Red Blood Count 5.08 x10^6/uL (4.30-5.70) Hemoglobin 15.9 g/dL (13.0-17.5) Hematocrit 46.6 % (39.0-53.0) Mean Corpuscular Volume 92 fL (79-100) Mean Corpuscular Hemoglobin 31 pg (25-35) Mean Corpuscular Hemoglobin Concent 34 g/dL (31-37) Red Cell Distribution Width 14.2 % (11.5-14.5) Platelet Count 188 x10^3/uL (140-400) Neutrophils (%) (Auto) 54 % (31-73) Lymphocytes (%) (Auto) 39 % (24-48) Monocytes (%) (Auto) 5 % (0-9) Eosinophils (%) (Auto) 1 % (0-3) Basophils (%) (Auto) 0 % (0-3) Neutrophils # (Auto) 8.8 x10^3/uL (1.8-7.7) Lymphocytes # (Auto) 6.4 x10^3/uL (1.0-4.8) Monocytes # (Auto) 0.8 x10^3/uL (0.0-1.1) Eosinophils # (Auto) 0.2 x10^3/uL (0.0-0.7) Basophils # (Auto) 0.1 x10^3/uL (0.0-0.2) Sodium Level 142 mmol/L (136-145) Potassium Level 3.5 mmol/L (3.5-5.1) Chloride Level 104 mmol/L (98-107) Carbon Dioxide Level 26 mmol/L (21-32) Anion Gap 12 (6-14) Blood Urea Nitrogen 11 mg/dL (8-26) Creatinine 0.8 mg/dL (0.7-1.3) Estimated GFR (Cockcroft-Gault) 92.1 Glucose Level 123 mg/dL (70-99) Calcium Level 9.0 mg/dL (8.5-10.1) Laboratory Tests Test 05/27/19 15:15 05/28/19 04:05 Potassium Level 3.8 mmol/L (3.5-5.1) 3.5 mmol/L (3.5-5.1) White Blood Count 16.3 x10^3/uL (4.0-11.0) Red Blood Count 5.08 x10^6/uL (4.30-5.70) Hemoglobin 15.9 g/dL (13.0-17.5) Hematocrit 46.6 % (39.0-53.0) Mean Corpuscular Volume 92 fL (79-100) Mean Corpuscular Hemoglobin 31 pg (25-35) Mean Corpuscular Hemoglobin Concent 34 g/dL (31-37) Red Cell Distribution Width 14.2 % (11.5-14.5) Platelet Count 188 x10^3/uL (140-400) Neutrophils (%) (Auto) 54 % (31-73) Lymphocytes (%) (Auto) 39 % (24-48) Monocytes (%) (Auto) 5 % (0-9) Eosinophils (%) (Auto) 1 % (0-3) Basophils (%) (Auto) 0 % (0-3) Neutrophils # (Auto) 8.8 x10^3/uL (1.8-7.7) Lymphocytes # (Auto) 6.4 x10^3/uL (1.0-4.8) Monocytes # (Auto) 0.8 x10^3/uL (0.0-1.1) Eosinophils # (Auto) 0.2 x10^3/uL (0.0-0.7) Basophils # (Auto) 0.1 x10^3/uL (0.0-0.2) Sodium Level 142 mmol/L (136-145) Chloride Level 104 mmol/L (98-107) Carbon Dioxide Level 26 mmol/L (21-32) Anion Gap 12 (6-14) Blood Urea Nitrogen 11 mg/dL (8-26) Creatinine 0.8 mg/dL (0.7-1.3) Estimated GFR (Cockcroft-Gault) 92.1 Glucose Level 123 mg/dL (70-99) Calcium Level 9.0 mg/dL (8.5-10.1) Medications Current Medications Sodium Chloride 1,000 ml @ 1,000 mls/hr Q1H IV Last administered on 1/29/20at 04:52; Start 05/26/19 at 04:30; Stop 05/26/19 at 05:29; Status DC Labetalol HCl (Normodyne Iv Push) 10 mg 1X ONCE IVP Last administered on 05/26/19at 05:42; Start 05/26/19 at 05:45; Stop 05/26/19 at 05:46; Status DC Ondansetron HCl (Zofran) 4 mg PRN Q8HRS PRN IV NAUSEA/VOMITING; Start 05/26/19 at 05:45; Stop 05/27/19 at 05:44; Status DC Nicardipine HCl 50 mg/Sodium Chloride 250 ml @ 25 mls/hr CONT PRN IV SEE I/O RECORD Last administered on 05/26/19at 20:41; Start 05/26/19 at 05:45 Bacitracin 01308 unit/Sodium Chloride 1,000 ml @ 1,000 mls/hr 1X ONCE IRR Last administered on 05/26/19at 09:53; Start 05/26/19 at 08:00; Stop 05/26/19 at 08:59; Status DC Gelatin (Gelfoam Size 100) 1 each STK-MED ONCE .ROUTE Last administered on 05/26/19at 09:53; Start 05/26/19 at 07:17; Stop 05/26/19 at 07:18; Status DC Bupivacaine HCl/ Epinephrine Bitart (Sensorcain-Epi 0.5%-1:[id number] Mpf) 30 ml STK-MED ONCE .ROUTE Last administered on 05/26/19at 09:53; Start 05/26/19 at 07:17; Stop 05/26/19 at 07:18; Status DC Cellulose (Surgicel Hemostat 4x8) 1 each STK-MED ONCE .ROUTE ; Start 05/26/19 at 07:18; Stop 05/26/19 at 07:18; Status DC Thrombin 20,000 unit STK-MED ONCE TP Last administered on 05/26/19at 09:53; Start 05/26/19 at 07:18; Stop 05/26/19 at 07:18; Status DC Fentanyl Citrate (Fentanyl 2ml Vial) 100 mcg STK-MED ONCE .ROUTE ; Start 05/26/19 at 07:19; Stop 05/26/19 at 07:19; Status DC Propofol 20 ml @ As Directed STK-MED ONCE IV ; Start 05/26/19 at 07:19; Stop 05/26/19 at 07:20; Status DC Dexamethasone Sodium Phosphate (Decadron) 20 mg STK-MED ONCE .ROUTE ; Start 05/26/19 at 07:19; Stop 05/26/19 at 07:20; Status DC Ondansetron HCl (Zofran) 4 mg STK-MED ONCE .ROUTE ; Start 05/26/19 at 07:20; Stop 05/26/19 at 07:20; Status DC Lidocaine HCl (Lidocaine Pf 2% Vial) 5 ml STK-MED ONCE .ROUTE ; Start 05/26/19 at 07:20; Stop 05/26/19 at 07:20; Status DC Phenylephrine HCl (PHENYLEPHRINE in 0.9% NACL PF) 1 mg STK-MED ONCE IV ; Start 05/26/19 at 07:21; Stop 05/26/19 at 07:21; Status DC Desflurane (Suprane) 60 ml STK-MED ONCE IH ; Start 05/26/19 at 07:21; Stop 05/26/19 at 07:21; Status DC Mannitol (Mannitol) 12.5 g STK-MED ONCE .ROUTE ; Start 05/26/19 at 08:11; Stop 05/26/19 at 08:11; Status DC Ondansetron HCl (Zofran) 4 mg PRN Q6HRS PRN IV NAUSEA/VOMITING; Start 05/26/19 at 08:30; Stop 05/26/19 at 19:13; Status DC Fentanyl Citrate (Fentanyl 2ml Vial) 25 mcg PRN Q5MIN PRN IV MILD PAIN 1-3 Last administered on 05/26/19at 12:25; Start 05/26/19 at 08:30; Stop 05/26/19 at 19:13; Status DC Fentanyl Citrate (Fentanyl 2ml Vial) 50 mcg PRN Q5MIN PRN IV MODERATE TO SEVERE PAIN; Start 05/26/19 at 08:30; Stop 05/26/19 at 19:13; Status DC Morphine Sulfate (Morphine Sulfate) 1 mg PRN Q10MIN PRN IV SEVERE PAIN 7-10; Start 05/26/19 at 08:30; Stop 05/26/19 at 19:13; Status DC Ringer's Solution 1,000 ml @ 30 mls/hr Q24H IV Last administered on 05/26/19at 12:50; Start 05/26/19 at 08:28; Stop 05/26/19 at 19:09; Status DC Hydromorphone HCl (Dilaudid) 0.5 mg PRN Q10MIN PRN IV SEV PAIN, Second choice; Start 05/26/19 at 08:30; Stop 05/26/19 at 19:13; Status DC Prochlorperazine Edisylate (Compazine) 5 mg PACU PRN PRN IV NAUSEA, MRX1; Start 05/26/19 at 08:30; Stop 05/26/19 at 19:13; Status DC Cefazolin Sodium/ Dextrose 50 ml @ 100 mls/hr 1X ONCE IV Last administered on 05/26/19at 09:01; Start 05/26/19 at 09:00; Stop 05/26/19 at 09:29; Status DC Rocuronium [place] (Zemuron) 50 mg STK-MED ONCE .ROUTE ; Start 05/26/19 at 09:32; Stop 05/26/19 at 09:32; Status DC Glycopyrrolate (Robinul) 1 mg STK-MED ONCE .ROUTE ; Start 05/26/19 at 09:32; Stop 05/26/19 at 09:33; Status DC Neostigmine [place] (Neostigmine Methylsulfate) 5 mg STK-MED ONCE .ROUTE ; Start 05/26/19 at 09:32; Stop 05/26/19 at 09:33; Status DC Al Hydroxide/Mg Hydroxide (Mylanta Plus Xs) 30 ml PRN Q3HRS PRN PO HEARTBURN / GAS; Start 05/26/19 at 10:00 Calcium Carbonate/ Glycine (Tums) 500 mg PRN Q3HRS PRN PO INDIGESTION; Start 05/26/19 at 10:00 Sodium Chloride (Normal Saline Flush) 3 ml QSHIFT PRN IV AFTER MEDS AND BLOOD DRAWS; Start 05/26/19 at 10:00 Potassium Chloride/Dextrose/ Sod Cl 1,000 ml @ 75 mls/hr [id number] IV Last administered on 05/27/19at 23:36; Start 05/26/19 at 11:00 Dextrose (Dextrose 50%-Water Syringe) 12.5 gm PRN Q15MIN PRN IV SEE COMMENTS; Start 05/26/19 at 10:00 Dextrose (Iv Dextrose 5%) 250 ml PRN Q15MIN PRN IV SEE COMMENTS; Start 05/26/19 at 10:00 Acetaminophen/ Hydrocodone Bitart (Lortab 5/325) 1 tab PRN Q4HRS PRN PO MILD PAIN 1-3; Start 05/26/19 at 10:00 Docusate Sodium (Colace) 100 mg BID PO Last administered on 05/28/19at 09:54; Start 05/26/19 at 21:00 Cefazolin Sodium (Ancef) 1 gm Q8H IVP Last administered on 05/27/19at 09:19; Start 05/26/19 at 17:00; Stop 05/27/19 at 09:01; Status DC Acetaminophen (Tylenol) 650 mg PRN Q6HRS PRN PO HEADACHE/FEVER Last administered on 05/28/19at 00:10; Start 05/26/19 at 10:00 Morphine Sulfate (Morphine Sulfate) 2 mg PRN Q2HR PRN IV PAIN; Start 05/26/19 at 10:15 Fentanyl Citrate (Fentanyl 2ml Vial) 100 mcg STK-MED ONCE .ROUTE ; Start 0 at 10:12; Stop 05/26/19 at 10:13; Status DC Midazolam HCl (Versed) 2 mg STK-MED ONCE .ROUTE ; Start 05/26/19 at 14:08; Stop 05/26/19 at 14:08; Status DC Atorvastatin Calcium (Lipitor) 10 mg HS PO Last administered on 05/27/19at 20:36; Start 05/26/19 at 21:00 Carbidopa/Levodopa (Sinemet 25/100) 2 tab TID PO Last administered on 05/28/19at 09:51; Start 05/26/19 at 21:00 Cyanocobalamin (Vitamin B-12) 1,000 mcg QMONTH IM ; Start 06/25/19 at 09:00 Dicyclomine HCl (Bentyl) 10 mg PRN TID PRN PO DIARRHEA; Start 05/26/19 at 16:00 Fludrocortisone Acetate (Florinef) 0.1 mg TID PO Last administered on 05/28/19at 09:54; Start 05/26/19 at 21:00 Hydralazine HCl (Apresoline) 25 mg TID PO Last administered on 05/28/19at 09:52; Start 05/26/19 at 21:00 Levothyroxine Sodium (Synthroid) 75 mcg DAILY PO Last administered on 05/28/19 09:51; Start 05/27/19 at 09:00 Potassium Chloride (Klor-Con) 40 meq TIDWMEALS PO Last administered on 05/28/19 09:51; Start 05/26/19 at 17:00 Spironolactone (Aldactone) 12.5 mg DAILY PO Last administered on 05/28/19 09:53; Start 05/27/19 at 09:00 Lactobacillus Rhamnosus (Culturelle) 1 cap DAILY PO Last administered on 05/28/19at 09:52; Start 05/27/19 at 09:00 Multivitamins/ Minerals (I-[place]uita) 2 tab DAILY PO Last administered on 05/28/19at 09:52; Start 05/27/19 at 09:00 Potassium Chloride (Klor-Con) 40 meq 1X ONCE PO Last administered on 05/27/19at 08:05; Start 05/27/19 at 07:00; Stop 05/27/19 at 07:01; Status DC Potassium Chloride (Klor-Con) 40 meq Q2H PO ; Start 05/27/19 at 10:00; Stop 05/27/19 at 12:01; Status DC Potassium Chloride (Klor-Con) 40 meq Q2H PO ; Start 05/27/19 at 07:00; Stop 05/27/19 at 11:01; Status UNV Active Scripts Active Klor-Con M20 (Potassium Chloride) 20 Meq Tab.er.prt 40 Meq PO TIDWMEALS Hydralazine Hcl 25 Mg Tablet 25 Mg PO TID Reported Preservision Areds Tablet (Vit A/Vit C/Vit E/Zinc/Copper) 1 Each Tablet 2 Tab PO DAILY 30 Days Fludrocortisone Acetate 0.1 Mg Tablet 0.1 Mg PO TID Spironolactone 25 Mg Tablet 0.5 Tab PO DAILY Probiotic Blend Capsule (L.acid/L.casei/B.bif/B.philip/Fos) 1 Each Capsule 1 Cap PO DAILY Preservision Areds Tablet (Vit A/Vit C/Vit E/Zinc/Copper) 1 Each Tablet 1 Tab PO DAILY 30 Days Loperamide (Loperamide Hcl) 2 Mg Tablet 1 Mg PO PRN Q4HRS PRN Metamucil (Psyllium Husk) 0.52 Gm Capsule 1 Cap PO DAILY Dicyclomine Hcl 10 Mg Capsule 1 Cap PO PRN TID PRN Cyanocobalamin Injection (Cyanocobalamin (Vitamin B-12)) 1,000 Mcg/1 Ml Vial 1 Ml IM QMONTH Carbidopa-Levodopa 25-100 Tab (Carbidopa/Levodopa) 1 Each Tablet 2 Tab PO TID Levothyroxine Sodium 75 Mcg Tablet 1 Tab PO DAILY Aspir 81 (Aspirin) 81 Mg Tablet. 1 Tab PO DAILY Atorvastatin Calcium 10 Mg Tablet 10 Mg PO HS Vitals/I & O Vital Sign - Last 24 Hours 05/27/19 05/27/19 05/27/19 05/27/19 14:00 16:00 19:00 20:00 Temp 98.2 98.6 98.2 98.6 Pulse 63 63 71 Resp 18 18 B/P (MAP) 141/48 141/48 (79) 168/93 (118) Pulse Ox 94 93 O2 Delivery Room Air Room Air Room Air 05/27/19 05/27/19 05/28/19 05/28/19 20:36 23:00 03:01 07:47 Temp 98.4 97.9 97.6 98.4 97.9 97.6 Pulse 63 73 88 82 Resp 16 20 16 B/P (MAP) 141/48 176/95 (122) 159/88 (111) 157/96 (116) Pulse Ox 94 94 94 O2 Delivery Room Air Room Air Room Air 05/28/19 05/28/19 05/28/19 08:00 09:52 11:17 Temp 97.5 97.5 Pulse 82 73 Resp 16 B/P (MAP) 157/96 153/87 (109) Pulse Ox 96 O2 Delivery Room Air Room Air Intake and Output 05/27/19 05/27/19 05/28/19 15:00 23:00 07:00 Intake Total 120 ml 780 ml Output Total 1030 ml 700 ml Balance -910 ml 80 ml HERBIE MITCHELL MD May 28, 2019 12:32
--- NOTE | 2019-05-28 12:58 | PDOC ---
PROGRESS NOTES Subjective Subjective He admits light headedness while up standing. Objective Objective Vital Signs Date Time Temp Pulse Resp B/P (MAP) Pulse Ox O2 Delivery O2 Flow Rate FiO2 05/28/19 11:17 97.5 73 16 153/87 (109) 96 Room Air 97.5 05/27/19 12:00 2.0 Intake and Output 05/28/19 07:00 Intake Total 900 ml Output Total 1730 ml Balance -830 ml Intake Oral 900 ml Output Urine Total 1730 ml Physical Exam Physical Exam He is independent with bed mobility,transfers and walking with walker under supervision and one episode of tripling without fall while making a turn using roller walker. Assessment Assessment Problems Medical Problems: (1) Accelerated hypertension Status: Acute (2) Hypertension Status: Acute (3) Subdural hematoma Status: Acute Plan Plan of Care To see how he does in the next day or so,before deciding on discharge to home or to SNF or rehab unit. Comment Review of Relevant I have reviewed the following items maira (where applicable) has been applied. Labs Laboratory Tests Test 05/26/19 13:35 05/26/19 23:00 05/27/19 05:38 05/27/19 15:15 Nasal Screen MRSA (PCR) Negative (Negative) Urine Collection Type Unknown Urine Color Yellow Urine Clarity Clear Urine pH 6.0 Urine Specific Gerber 1.025 Urine Protein 30 mg/dL (NEG-TRACE) Urine Glucose (UA) Negative mg/dL (NEG) Urine Ketones (Stick) Negative mg/dL (NEG) Urine Blood Moderate (NEG) Urine Nitrite Negative (NEG) Urine Bilirubin Negative (NEG) Urine Urobilinogen Dipstick 1.0 mg/dL (0.2 mg/dL) Urine Leukocyte Esterase Trace (NEG) Urine RBC 6-10 /HPF (0-2) Urine WBC 11-20 /HPF (0-4) Urine Squamous Epithelial Cells Occ /LPF Urine Bacteria 0 /HPF (0-FEW) Urine Mucus Mod /LPF White Blood Count 15.5 x10^3/uL (4.0-11.0) Red Blood Count 4.39 x10^6/uL (4.30-5.70) Hemoglobin 13.7 g/dL (13.0-17.5) Hematocrit 40.3 % (39.0-53.0) Mean Corpuscular Volume 92 fL (79-100) Mean Corpuscular Hemoglobin 31 pg (25-35) Mean Corpuscular Hemoglobin Concent 34 g/dL (31-37) Red Cell Distribution Width 13.7 % (11.5-14.5) Platelet Count 158 x10^3/uL (140-400) Neutrophils (%) (Auto) 61 % (31-73) Lymphocytes (%) (Auto) 33 % (24-48) Monocytes (%) (Auto) 5 % (0-9) Eosinophils (%) (Auto) 1 % (0-3) Basophils (%) (Auto) 0 % (0-3) Neutrophils # (Auto) 9.5 x10^3/uL (1.8-7.7) Lymphocytes # (Auto) 5.1 x10^3/uL (1.0-4.8) Monocytes # (Auto) 0.7 x10^3/uL (0.0-1.1) Eosinophils # (Auto) 0.1 x10^3/uL (0.0-0.7) Basophils # (Auto) 0.0 x10^3/uL (0.0-0.2) Sodium Level 142 mmol/L (136-145) Potassium Level 2.9 mmol/L (3.5-5.1) 3.8 mmol/L (3.5-5.1) Chloride Level 105 mmol/L (98-107) Carbon Dioxide Level 28 mmol/L (21-32) Anion Gap 9 (6-14) Blood Urea Nitrogen 11 mg/dL (8-26) Creatinine 0.7 mg/dL (0.7-1.3) Estimated GFR (Cockcroft-Gault) 107.4 BUN/Creatinine Ratio 16 (6-20) Glucose Level 126 mg/dL (70-99) Calcium Level 7.8 mg/dL (8.5-10.1) Total Bilirubin 0.7 mg/dL (0.2-1.0) Aspartate Amino Transf (AST/SGOT) 14 U/L (15-37) Alanine Aminotransferase (ALT/SGPT) < 6 U/L (16-63) Alkaline Phosphatase 51 U/L (46-116) Total Protein 5.1 g/dL (6.4-8.2) Albumin 2.8 g/dL (3.4-5.0) Albumin/Globulin Ratio 1.2 (1.0-1.7) Test 05/28/19 04:05 White Blood Count 16.3 x10^3/uL (4.0-11.0) Red Blood Count 5.08 x10^6/uL (4.30-5.70) Hemoglobin 15.9 g/dL (13.0-17.5) Hematocrit 46.6 % (39.0-53.0) Mean Corpuscular Volume 92 fL (79-100) Mean Corpuscular Hemoglobin 31 pg (25-35) Mean Corpuscular Hemoglobin Concent 34 g/dL (31-37) Red Cell Distribution Width 14.2 % (11.5-14.5) Platelet Count 188 x10^3/uL (140-400) Neutrophils (%) (Auto) 54 % (31-73) Lymphocytes (%) (Auto) 39 % (24-48) Monocytes (%) (Auto) 5 % (0-9) Eosinophils (%) (Auto) 1 % (0-3) Basophils (%) (Auto) 0 % (0-3) Neutrophils # (Auto) 8.8 x10^3/uL (1.8-7.7) Lymphocytes # (Auto) 6.4 x10^3/uL (1.0-4.8) Monocytes # (Auto) 0.8 x10^3/uL (0.0-1.1) Eosinophils # (Auto) 0.2 x10^3/uL (0.0-0.7) Basophils # (Auto) 0.1 x10^3/uL (0.0-0.2) Sodium Level 142 mmol/L (136-145) Potassium Level 3.5 mmol/L (3.5-5.1) Chloride Level 104 mmol/L (98-107) Carbon Dioxide Level 26 mmol/L (21-32) Anion Gap 12 (6-14) Blood Urea Nitrogen 11 mg/dL (8-26) Creatinine 0.8 mg/dL (0.7-1.3) Estimated GFR (Cockcroft-Gault) 92.1 Glucose Level 123 mg/dL (70-99) Calcium Level 9.0 mg/dL (8.5-10.1) Laboratory Tests Test 05/27/19 15:15 05/28/19 04:05 Potassium Level 3.8 mmol/L (3.5-5.1) 3.5 mmol/L (3.5-5.1) White Blood Count 16.3 x10^3/uL (4.0-11.0) Red Blood Count 5.08 x10^6/uL (4.30-5.70) Hemoglobin 15.9 g/dL (13.0-17.5) Hematocrit 46.6 % (39.0-53.0) Mean Corpuscular Volume 92 fL (79-100) Mean Corpuscular Hemoglobin 31 pg (25-35) Mean Corpuscular Hemoglobin Concent 34 g/dL (31-37) Red Cell Distribution Width 14.2 % (11.5-14.5) Platelet Count 188 x10^3/uL (140-400) Neutrophils (%) (Auto) 54 % (31-73) Lymphocytes (%) (Auto) 39 % (24-48) Monocytes (%) (Auto) 5 % (0-9) Eosinophils (%) (Auto) 1 % (0-3) Basophils (%) (Auto) 0 % (0-3) Neutrophils # (Auto) 8.8 x10^3/uL (1.8-7.7) Lymphocytes # (Auto) 6.4 x10^3/uL (1.0-4.8) Monocytes # (Auto) 0.8 x10^3/uL (0.0-1.1) Eosinophils # (Auto) 0.2 x10^3/uL (0.0-0.7) Basophils # (Auto) 0.1 x10^3/uL (0.0-0.2) Sodium Level 142 mmol/L (136-145) Chloride Level 104 mmol/L (98-107) Carbon Dioxide Level 26 mmol/L (21-32) Anion Gap 12 (6-14) Blood Urea Nitrogen 11 mg/dL (8-26) Creatinine 0.8 mg/dL (0.7-1.3) Estimated GFR (Cockcroft-Gault) 92.1 Glucose Level 123 mg/dL (70-99) Calcium Level 9.0 mg/dL (8.5-10.1) Medications Current Medications Sodium Chloride 1,000 ml @ 1,000 mls/hr Q1H IV Last administered on 05/26/19at 04:52; Start 05/26/19 at 04:30; Stop 05/26/19 at 05:29; Status DC Labetalol HCl (Normodyne Iv Push) 10 mg 1X ONCE IVP Last administered on 05/26/19at 05:42; Start 05/26/19 at 05:45; Stop 05/26/19 at 05:46; Status DC Ondansetron HCl (Zofran) 4 mg PRN Q8HRS PRN IV NAUSEA/VOMITING; Start 05/26/19 at 05:45; Stop 05/27/19 at 05:44; Status DC Nicardipine HCl 50 mg/Sodium Chloride 250 ml @ 25 mls/hr CONT PRN IV SEE I/O RECORD Last administered on 05/26/19at 20:41; Start 05/26/19 at 05:45 Bacitracin 14802 unit/Sodium Chloride 1,000 ml @ 1,000 mls/hr 1X ONCE IRR Last administered on 05/26/19at 09:53; Start 05/26/19 at 08:00; Stop 05/26/19 at 08:59; Status DC Gelatin (Gelfoam Size 100) 1 each STK-MED ONCE .ROUTE Last administered on 05/26/19at 09:53; Start 05/26/19 at 07:17; Stop 05/26/19 at 07:18; Status DC Bupivacaine HCl/ Epinephrine Bitart (Sensorcain-Epi 0.5%-1:[id number] Mpf) 30 ml STK-MED ONCE .ROUTE Last administered on 05/26/19at 09:53; Start 05/26/19 at 07:17; Stop 05/26/19 at 07:18; Status DC Cellulose (Surgicel Hemostat 4x8) 1 each STK-MED ONCE .ROUTE ; Start 05/26/19 at 07:18; Stop 05/26/19 at 07:18; Status DC Thrombin 20,000 unit STK-MED ONCE TP Last administered on 05/26/19at 09:53; Start 05/26/19 at 07:18; Stop 05/26/19 at 07:18; Status DC Fentanyl Citrate (Fentanyl 2ml Vial) 100 mcg STK-MED ONCE .ROUTE ; Start 05/26/19 at 07:19; Stop 05/26/19 at 07:19; Status DC Propofol 20 ml @ As Directed STK-MED ONCE IV ; Start 05/26/19 at 07:19; Stop 05/26/19 at 07:20; Status DC Dexamethasone Sodium Phosphate (Decadron) 20 mg STK-MED ONCE .ROUTE ; Start 05/26/19 at 07:19; Stop 05/26/19 at 07:20; Status DC Ondansetron HCl (Zofran) 4 mg STK-MED ONCE .ROUTE ; Start 05/26/19 at 07:20; Stop 05/26/19 at 07:20; Status DC Lidocaine HCl (Lidocaine Pf 2% Vial) 5 ml STK-MED ONCE .ROUTE ; Start 05/26/19 at 07:20; Stop 05/26/19 at 07:20; Status DC Phenylephrine HCl (PHENYLEPHRINE in 0.9% NACL PF) 1 mg STK-MED ONCE IV ; Start 05/26/19 at 07:21; Stop 05/26/19 at 07:21; Status DC Desflurane (Suprane) 60 ml STK-MED ONCE IH ; Start 05/26/19 at 07:21; Stop 05/26/19 at 07:21; Status DC Mannitol (Mannitol) 12.5 g STK-MED ONCE .ROUTE ; Start 05/26/19 at 08:11; Stop 05/26/19 at 08:11; Status DC Ondansetron HCl (Zofran) 4 mg PRN Q6HRS PRN IV NAUSEA/VOMITING; Start 05/26/19 at 08:30; Stop 05/26/19 at 19:13; Status DC Fentanyl Citrate (Fentanyl 2ml Vial) 25 mcg PRN Q5MIN PRN IV MILD PAIN 1-3 Last administered on 05/26/19at 12:25; Start 05/26/19 at 08:30; Stop 05/26/19 at 19:13; Status DC Fentanyl Citrate (Fentanyl 2ml Vial) 50 mcg PRN Q5MIN PRN IV MODERATE TO SEVERE PAIN; Start 05/26/19 at 08:30; Stop 05/26/19 at 19:13; Status DC Morphine Sulfate (Morphine Sulfate) 1 mg PRN Q10MIN PRN IV SEVERE PAIN 7-10; Start 05/26/19 at 08:30; Stop 05/26/19 at 19:13; Status DC Ringer's Solution 1,000 ml @ 30 mls/hr Q24H IV Last administered on 05/26/19at 12:50; Start 05/26/19 at 08:28; Stop 05/26/19 at 19:09; Status DC Hydromorphone HCl (Dilaudid) 0.5 mg PRN Q10MIN PRN IV SEV PAIN, Second choice; Start 05/26/19 at 08:30; Stop 05/26/19 at 19:13; Status DC Prochlorperazine Edisylate (Compazine) 5 mg PACU PRN PRN IV NAUSEA, MRX1; Start 05/26/19 at 08:30; Stop 05/26/19 at 19:13; Status DC Cefazolin Sodium/ Dextrose 50 ml @ 100 mls/hr 1X ONCE IV Last administered on 05/26/19at 09:01; Start 05/26/19 at 09:00; Stop 05/26/19 at 09:29; Status DC Rocuronium [place] (Zemuron) 50 mg STK-MED ONCE .ROUTE ; Start 05/26/19 at 09:32; Stop 05/26/19 at 09:32; Status DC Glycopyrrolate (Robinul) 1 mg STK-MED ONCE .ROUTE ; Start 05/26/19 at 09:32; Stop 05/26/19 at 09:33; Status DC Neostigmine [place] (Neostigmine Methylsulfate) 5 mg STK-MED ONCE .ROUTE ; Star t 05/26/19 at 09:32; Stop 05/26/19 at 09:33; Status DC Al Hydroxide/Mg Hydroxide (Mylanta Plus Xs) 30 ml PRN Q3HRS PRN PO HEARTBURN / GAS; Start 05/26/19 at 10:00 Calcium Carbonate/ Glycine (Tums) 500 mg PRN Q3HRS PRN PO INDIGESTION; Start 05/26/19 at 10:00 Sodium Chloride (Normal Saline Flush) 3 ml QSHIFT PRN IV AFTER MEDS AND BLOOD DRAWS; Start 05/26/19 at 10:00 Potassium Chloride/Dextrose/ Sod Cl 1,000 ml @ 75 mls/hr [id number] IV Last administered on 05/27/19at 23:36; Start 05/26/19 at 11:00 Dextrose (Dextrose 50%-Water Syringe) 12.5 gm PRN Q15MIN PRN IV SEE COMMENTS; Start 05/26/19 at 10:00 Dextrose (Iv Dextrose 5%) 250 ml PRN Q15MIN PRN IV SEE COMMENTS; Start 05/26/19 at 10:00 Acetaminophen/ Hydrocodone Bitart (Lortab 5/325) 1 tab PRN Q4HRS PRN PO MILD PAIN 1-3; Start 05/26/19 at 10:00 Docusate Sodium (Colace) 100 mg BID PO Last administered on 05/28/19at 09:54; Start 05/26/19 at 21:00 Cefazolin Sodium (Ancef) 1 gm Q8H IVP Last administered on 05/27/19at 09:19; Start 05/26/19 at 17:00; Stop 05/27/19 at 09:01; Status DC Acetaminophen (Tylenol) 650 mg PRN Q6HRS PRN PO HEADACHE/FEVER Last administered on 05/28/19at 00:10; Start 05/26/19 at 10:00 Morphine Sulfate (Morphine Sulfate) 2 mg PRN Q2HR PRN IV PAIN; Start 05/26/19 at 10:15 Fentanyl Citrate (Fentanyl 2ml Vial) 100 mcg STK-MED ONCE .ROUTE ; Start 05/26/19 at 10:12; Stop 05/26/19 at 10:13; Status DC Midazolam HCl (Versed) 2 mg STK-MED ONCE .ROUTE ; Start 05/26/19 at 14:08; Stop 05/26/19 at 14:08; Status DC Atorvastatin Calcium (Lipitor) 10 mg HS PO Last administered on 05/27/19at 20:36; Start 05/26/19 at 21:00 Carbidopa/Levodopa (Sinemet 25/100) 2 tab TID PO Last administered on 05/28/19at 09:51; Start 05/26/19 at 21:00 Cyanocobalamin (Vitamin B-12) 1,000 mcg QMONTH IM ; Start 06/25/19 at 09:00 Dicyclomine HCl (Bentyl) 10 mg PRN TID PRN PO DIARRHEA; Start 05/26/19 at 16:00 Fludrocortisone Acetate (Florinef) 0.1 mg TID PO Last administered on 05/28/19at 09:54; Start 05/26/19 at 21:00 Hydralazine HCl (Apresoline) 25 mg TID PO Last administered on 05/28/19at 09:52; Start 05/26/19 at 21:00 Levothyroxine Sodium (Synthroid) 75 mcg DAILY PO Last administered on 05/28/19at 09:51; Start 05/27/19 at 09:00 Potassium Chloride (Klor-Con) 40 meq TIDWMEALS PO Last administered on 05/28/19at 09:51; Start 05/26/19 at 17:00 Spironolactone (Aldactone) 12.5 mg DAILY PO Last administered on 05/28/19 09:53; Start 05/27/19 at 09:00 Lactobacillus Rhamnosus (Culturelle) 1 cap DAILY PO Last administered on 05/28/19at 09:52; Start 05/27/19 at 09:00 Multivitamins/ Minerals (I-Quita) 2 tab DAILY PO Last administered on 05/28/19at 09:52; Start 05/27/19 at 09:00 Potassium Chloride (Klor-Con) 40 meq 1X ONCE PO Last administered on 05/27/19at 08:05; Start 05/27/19 at 07:00; Stop 05/27/19 at 07:01; Status DC Potassium Chloride (Klor-Con) 40 meq Q2H PO ; Start 05/27/19 at 10:00; Stop 05/27/19 at 12:01; Status DC Potassium Chloride (Klor-Con) 40 meq Q2H PO ; Start 05/27/19 at 07:00; Stop 05/27/19 at 11:01; Status UNV Active Scripts Active Klor-Con M20 (Potassium Chloride) 20 Meq Tab.er.prt 40 Meq PO TIDWMEALS Hydralazine Hcl 25 Mg Tablet 25 Mg PO TID Reported Preservision Areds Tablet (Vit A/Vit C/Vit E/Zinc/Copper) 1 Each Tablet 2 Tab PO DAILY 30 Days Fludrocortisone Acetate 0.1 Mg Tablet 0.1 Mg PO TID Spironolactone 25 Mg Tablet 0.5 Tab PO DAILY Probiotic Blend Capsule (L.acid/L.casei/B.bif/B.philip/Fos) 1 Each Capsule 1 Cap PO DAILY Preservision Areds Tablet (Vit A/Vit C/Vit E/Zinc/Copper) 1 Each Tablet 1 Tab PO DAILY 30 Days Loperamide (Loperamide Hcl) 2 Mg Tablet 1 Mg PO PRN Q4HRS PRN Metamucil (Psyllium Husk) 0.52 Gm Capsule 1 Cap PO DAILY Dicyclomine Hcl 10 Mg Capsule 1 Cap PO PRN TID PRN Cyanocobalamin Injection (Cyanocobalamin (Vitamin B-12)) 1,000 Mcg/1 Ml Vial 1 Ml IM QMONTH Carbidopa-Levodopa 25-100 Tab (Carbidopa/Levodopa) 1 Each Tablet 2 Tab PO TID Levothyroxine Sodium 75 Mcg Tablet 1 Tab PO DAILY Aspir 81 (Aspirin) 81 Mg Tablet. 1 Tab PO DAILY Atorvastatin Calcium 10 Mg Tablet 10 Mg PO HS Vitals/I & O Vital Sign - Last 24 Hours 05/27/19 05/27/19 05/27/19 05/27/19 14:00 16:00 19:00 20:00 Temp 98.2 98.6 98.2 98.6 Pulse 63 63 71 Resp 18 18 B/P (MAP) 141/48 141/48 (79) 168/93 (118) Pulse Ox 94 93 O2 Delivery Room Air Room Air Room Air 05/27/19 05/27/19 05/28/19 05/28/19 20:36 23:00 03:01 07:47 Temp 98.4 97.9 97.6 98.4 97.9 97.6 Pulse 63 73 88 82 Resp 16 20 16 B/P (MAP) 141/48 176/95 (122) 159/88 (111) 157/96 (116) Pulse Ox 94 94 94 O2 Delivery Room Air Room Air Room Air 05/28/19 05/28/19 05/28/19 08:00 09:52 11:17 Temp 97.5 97.5 Pulse 82 73 Resp 16 B/P (MAP) 157/96 153/87 (109) Pulse Ox 96 O2 Delivery Room Air Room Air Intake and Output 05/27/19 05/27/19 05/28/19 15:00 23:00 07:00 Intake Total 120 ml 780 ml Output Total 1030 ml 700 ml Balance -910 ml 80 ml PETRA LION MD May 28, 2019 12:58
--- NOTE | 2019-05-28 14:32 | NUR ---
GILL following. Discussed with RN, PT/OT recommending acute rehab. GILL met with pt and pt's at bedside. Pt's would like referral sent to [facility], as she does not want to have to drive all the way to [place] or across state lines to [facility]. GILL phoned and faxed referral to [facility] (ph: [phone], fax: [phone]). GILL awaiting acceptance decision. Addendum: 05/28/19 at 1637 by ESPERANZA GARLAND Pt accepted at [facility]. Pt can discharge to [facility] tomorrow if ready. DC orders and scripts must be received by mara in order for [facility] to take pt. RN and Dr. Velasquez notified.
[2019-05-28 15:19] VITALS: BP 148/87
[2019-05-28 19:00] VITALS: BP 174/111
[2019-05-28] MEDS: ATORVASTATIN CALCIUM 10 MG TABLET. PO SCH (20:01)
[2019-05-28 23:00] VITALS: BP 131/79
[2019-05-29 04:50] VITALS: BP 132/76
[2019-05-29 05:14] LABS: BASO # 0.1 x10^3/uL (0.0-0.2); BASO % 0 % (0-3); EOS # 0.2 x10^3/uL (0.0-0.7); EOS % 1 % (0-3); HEMATOCRIT 45.3 % (39.0-53.0); HEMOGLOBIN 15.4 g/dL (13.0-17.5); LYMPH # 6.6 x10^3/uL (1.0-4.8); LYMPH % 48 % (24-48); MEAN CORPUSCULAR HEMOGLOBIN 31 pg (25-35); MEAN CORPUSCULAR HGB CONC 34 g/dL (31-37); MEAN CORPUSCULAR VOLUME 92 fL (79-100); MONO # 0.7 x10^3/uL (0.0-1.1); MONO % 5 % (0-9); NEUT # 6.2 x10^3/uL (1.8-7.7); NEUT % 45 % (31-73); PLATELET COUNT 194 x10^3/uL (140-400); RED BLOOD COUNT 4.94 x10^6/uL (4.30-5.70); WHITE BLOOD COUNT 13.7 x10^3/uL (4.0-11.0)
[2019-05-29 05:26] LABS: CALCIUM 8.5 mg/dL (8.5-10.1); CREATININE 0.7 mg/dL (0.7-1.3); GFR 107.4; POTASSIUM 3.7 mmol/L (3.5-5.1)
[2019-05-29 07:00] VITALS: BP 166/85
[2019-05-29] MEDS: FLUDROCORTISONE 0.1 MG TABLET PO SCH (08:25)
[2019-05-29] MEDS: LACTOBACILLUS RHAMNOSUS GG 1 CAPSULE. PO SCH (08:25)
[2019-05-29] MEDS: POTASSIUM CHLORIDE 20 MEQ TABLET.ER. PO SCH ×2 (08:25→11:26)
[2019-05-29] MEDS: MULTIVITAMIN I-VITE TABLET. PO SCH (08:25)
[2019-05-29] MEDS: CARBIDOPA/LEVODOPA 25/100MG TABLET PO SCH (08:26)
[2019-05-29] MEDS: SPIRONOLACTONE 25 MG TABLET PO SCH (08:28)
[2019-05-29] MEDS: hydrALAZINE 25 MG TABLET PO SCH (08:28)
[2019-05-29] MEDS: LEVOTHYROXINE 75 MCG TABLET PO SCH (08:28)
[2019-05-29] MEDS: DOCUSATE SODIUM 100 MG CAPSULE. PO SCH (08:28)
--- NOTE | 2019-05-29 09:58 | SNU/HH DC ---
DISCHARGE ORDERS DISCHARGE INFORMATION: FINAL DIAGNOSIS Problems Medical Problems: (1) Accelerated hypertension Status: Acute (2) Hypertension Status: Acute (3) Subdural hematoma Status: Acute CONDITION ON DISCHARGE: Stable CODE STATUS: Code Status: DNR/DNI USP: SNF STAY <30 DAYS: Yes HOSPICE: HOSPICE: No HOSPICE EVAL & TREAT: No LTAC: ADMIT TO LTAC: No POST DISCHARGE ORDERS: ACTIVITY ORDERS: No restrictions WEIGHT BEARING STATUS: No restrictions DIET AFTER DISCHARGE: Regular CHECKS AFTER DISCHARGE: CHECKS AFTER DISCHARGE: Check blood press - daily, Check blood sugar, ac/hs TREATMENT/EQUIPMENT ORDERS: ADAPTIVE EQUIPMENT NEEDED: None, Front wheeled walker Physical Therapy For: Evalulation/Treatment Occupational Therapy For: Evaluation/Treatment Speech Language Pathology For: Evaluation/Treatment DISCHARGE MEDICATIONS: Home Meds Active Scripts Potassium Chloride (KLOR-CON M20) 20 Meq Tab.er.prt, 40 MEQ PO TIDWMEALS for low K, #120 TAB.SR Prov:LAQUITA ROJAS MD 03/30/19 Hydralazine Hcl (HYDRALAZINE HCL) 25 Mg Tablet, 25 MG PO TID for htn, #90 TAB Prov:LAQUITA ROJAS MD 03/30/19 Reported Medications Vit A/Vit C/Vit E/Zinc/Copper (PRESERVISION AREDS TABLET) 1 Each Tablet, 2 TAB PO DAILY for supplement for 30 Days, #60 TAB 0 Refills 05/26/19 Fludrocortisone Acetate (FLUDROCORTISONE ACETATE) 0.1 Mg Tablet, 0.1 MG PO TID for steroid to reduce inflammation, TAB 05/26/19 Spironolactone (SPIRONOLACTONE) 25 Mg Tablet, 0.5 TAB PO DAILY for DIURETIC, #90 TAB 1 Refill 03/30/19 L.acid/L.casei/B.bif/B.philip/Fos (Probiotic Blend Capsule) 1 Each Capsule, 1 CAP PO DAILY for gut health, CAP 03/27/19 Vit A/Vit C/Vit E/Zinc/Copper (PRESERVISION AREDS TABLET) 1 Each Tablet, 1 TAB PO DAILY for eyes for 30 Days 03/27/19 Loperamide Hcl (LOPERAMIDE) 2 Mg Tablet, 1 MG PO PRN Q4HRS PRN for DIARRHEA, TAB 03/27/19 Psyllium Husk (METAMUCIL) 0.52 Gm Capsule, 1 CAP PO DAILY for bowels 03/27/19 Dicyclomine Hcl (DICYCLOMINE HCL) 10 Mg Capsule, 1 CAP PO PRN TID PRN for DIARRHEA 03/27/19 Cyanocobalamin (Vitamin B-12) (CYANOCOBALAMIN INJECTION) 1,000 Mcg/1 Ml Vial, 1 ML IM QMONTH for supplement 03/27/19 Carbidopa/Levodopa (CARBIDOPA-LEVODOPA 25-100 TAB) 1 Each Tablet, 2 TAB PO TID for parkinson's, TAB 03/27/19 Levothyroxine Sodium (LEVOTHYROXINE SODIUM) 75 Mcg Tablet, 1 TAB PO DAILY, #30 TAB 5 Refills 06/30/15 Aspirin (ASPIR 81) 81 Mg Tablet.dr, 1 TAB PO DAILY, #30 TAB 5 Refills 06/30/15 Atorvastatin Calcium (ATORVASTATIN CALCIUM) 10 Mg Tablet, 10 MG PO HS for FOR CHOLESTEROL, #30 TAB 0 Refills 06/30/15 MAUREEN MERCADO III DO May 29, 2019 09:58
[2019-05-29 11:00] VITALS: BP 142/78
--- NOTE | 2019-05-29 11:05 | PDOC ---
PROGRESS NOTES Subjective Subjective No new complaints. Objective Objective Vital Signs Date Time Temp Pulse Resp B/P (MAP) Pulse Ox O2 Delivery O2 Flow Rate FiO2 05/29/19 08:28 89 166/85 05/29/19 07:40 Room Air 05/29/19 07:00 18 94 05/29/19 04:50 97.9 97.9 05/27/19 12:00 2.0 Intake and Output 05/29/19 07:00 Intake Total 1330 ml Output Total 700 ml Balance 630 ml Intake Oral 1330 ml Output Urine Total 700 ml # Voids 3 Physical Exam Physical Exam He is somewhat lethargic this AM but he did walk with roller walker to bathroom with nursing. His post voiding urine residual is 90 ml,acceptable. Assessment Assessment Problems Medical Problems: (1) Accelerated hypertension Status: Acute (2) Hypertension Status: Acute (3) Subdural hematoma Status: Acute Plan Plan of Care To SNF when medically stable. Comment Review of Relevant I have reviewed the following items maira (where applicable) has been applied. Labs Laboratory Tests Test 05/27/19 15:15 05/28/19 04:05 05/29/19 04:31 Potassium Level 3.8 mmol/L (3.5-5.1) 3.5 mmol/L (3.5-5.1) 3.7 mmol/L (3.5-5.1) White Blood Count 16.3 x10^3/uL (4.0-11.0) 13.7 x10^3/uL (4.0-11.0) Red Blood Count 5.08 x10^6/uL (4.30-5.70) 4.94 x10^6/uL (4.30-5.70) Hemoglobin 15.9 g/dL (13.0-17.5) 15.4 g/dL (13.0-17.5) Hematocrit 46.6 % (39.0-53.0) 45.3 % (39.0-53.0) Mean Corpuscular Volume 92 fL (79-100) 92 fL (79-100) Mean Corpuscular Hemoglobin 31 pg (25-35) 31 pg (25-35) Mean Corpuscular Hemoglobin Concent 34 g/dL (31-37) 34 g/dL (31-37) Red Cell Distribution Width 14.2 % (11.5-14.5) 14.0 % (11.5-14.5) Platelet Count 188 x10^3/uL (140-400) 194 x10^3/uL (140-400) Neutrophils (%) (Auto) 54 % (31-73) 45 % (31-73) Lymphocytes (%) (Auto) 39 % (24-48) 48 % (24-48) Monocytes (%) (Auto) 5 % (0-9) 5 % (0-9) Eosinophils (%) (Auto) 1 % (0-3) 1 % (0-3) Basophils (%) (Auto) 0 % (0-3) 0 % (0-3) Neutrophils # (Auto) 8.8 x10^3/uL (1.8-7.7) 6.2 x10^3/uL (1.8-7.7) Lymphocytes # (Auto) 6.4 x10^3/uL (1.0-4.8) 6.6 x10^3/uL (1.0-4.8) Monocytes # (Auto) 0.8 x10^3/uL (0.0-1.1) 0.7 x10^3/uL (0.0-1.1) Eosinophils # (Auto) 0.2 x10^3/uL (0.0-0.7) 0.2 x10^3/uL (0.0-0.7) Basophils # (Auto) 0.1 x10^3/uL (0.0-0.2) 0.1 x10^3/uL (0.0-0.2) Sodium Level 142 mmol/L (136-145) 138 mmol/L (136-145) Chloride Level 104 mmol/L (98-107) 104 mmol/L (98-107) Carbon Dioxide Level 26 mmol/L (21-32) 24 mmol/L (21-32) Anion Gap 12 (6-14) 10 (6-14) Blood Urea Nitrogen 11 mg/dL (8-26) 9 mg/dL (8-26) Creatinine 0.8 mg/dL (0.7-1.3) 0.7 mg/dL (0.7-1.3) Estimated GFR (Cockcroft-Gault) 92.1 107.4 Glucose Level 123 mg/dL (70-99) 109 mg/dL (70-99) Calcium Level 9.0 mg/dL (8.5-10.1) 8.5 mg/dL (8.5-10.1) Laboratory Tests Test 05/29/19 04:31 White Blood Count 13.7 x10^3/uL (4.0-11.0) Red Blood Count 4.94 x10^6/uL (4.30-5.70) Hemoglobin 15.4 g/dL (13.0-17.5) Hematocrit 45.3 % (39.0-53.0) Mean Corpuscular Volume 92 fL (79-100) Mean Corpuscular Hemoglobin 31 pg (25-35) Mean Corpuscular Hemoglobin Concent 34 g/dL (31-37) Red Cell Distribution Width 14.0 % (11.5-14.5) Platelet Count 194 x10^3/uL (140-400) Neutrophils (%) (Auto) 45 % (31-73) Lymphocytes (%) (Auto) 48 % (24-48) Monocytes (%) (Auto) 5 % (0-9) Eosinophils (%) (Auto) 1 % (0-3) Basophils (%) (Auto) 0 % (0-3) Neutrophils # (Auto) 6.2 x10^3/uL (1.8-7.7) Lymphocytes # (Auto) 6.6 x10^3/uL (1.0-4.8) Monocytes # (Auto) 0.7 x10^3/uL (0.0-1.1) Eosinophils # (Auto) 0.2 x10^3/uL (0.0-0.7) Basophils # (Auto) 0.1 x10^3/uL (0.0-0.2) Sodium Level 138 mmol/L (136-145) Potassium Level 3.7 mmol/L (3.5-5.1) Chloride Level 104 mmol/L (98-107) Carbon Dioxide Level 24 mmol/L (21-32) Anion Gap 10 (6-14) Blood Urea Nitrogen 9 mg/dL (8-26) Creatinine 0.7 mg/dL (0.7-1.3) Estimated GFR (Cockcroft-Gault) 107.4 Glucose Level 109 mg/dL (70-99) Calcium Level 8.5 mg/dL (8.5-10.1) Microbiology 05/26/19 Urine Culture - Final, Complete 05/26/19 Urine Culture Result 1 (SALVADOR) - Final, Complete Medications Current Medications Sodium Chloride 1,000 ml @ 1,000 mls/hr Q1H IV Last administered on 05/26/19at 04:52; Start 05/26/19 at 04:30; Stop 05/26/19 at 05:29; Status DC Labetalol HCl (Normodyne Iv Push) 10 mg 1X ONCE IVP Last administered on 05/26/19at 05:42; Start 05/26/19 at 05:45; Stop 05/26/19 at 05:46; Status DC Ondansetron HCl (Zofran) 4 mg PRN Q8HRS PRN IV NAUSEA/VOMITING; Start 05/26/19 at 05:45; Stop 05/27/19 at 05:44; Status DC Nicardipine HCl 50 mg/Sodium Chloride 250 ml @ 25 mls/hr CONT PRN IV SEE I/O RECORD Last administered on 05/26/19at 20:41; Start 05/26/19 at 05:45 Bacitracin 72106 unit/Sodium Chloride 1,000 ml @ 1,000 mls/hr 1X ONCE IRR Last administered on 05/26/19at 09:53; Start 05/26/19 at 08:00; Stop 05/26/19 at 08:59; Status DC Gelatin (Gelfoam Size 100) 1 each STK-MED ONCE .ROUTE Last administered on 05/26/19at 09:53; Start 05/26/19 at 07:17; Stop 05/26/19 at 07:18; Status DC Bupivacaine HCl/ Epinephrine Bitart (Sensorcain-Epi 0.5%-1:[id number] Mpf) 30 ml STK-MED ONCE .ROUTE Last administered on 05/26/19at 09:53; Start 05/26/19 at 07:17; Stop 05/26/19 at 07:18; Status DC Cellulose (Surgicel Hemostat 4x8) 1 each STK-MED ONCE .ROUTE ; Start 05/26/19 at 07:18; Stop 05/26/19 at 07:18; Status DC Thrombin 20,000 unit STK-MED ONCE TP Last administered on 05/26/19at 09:53; Start 05/26/19 at 07:18; Stop 05/26/19 at 07:18; Status DC Fentanyl Citrate (Fentanyl 2ml Vial) 100 mcg STK-MED ONCE .ROUTE ; Start 05/26/19 at 07:19; Stop 05/26/19 at 07:19; Status DC Propofol 20 ml @ As Directed STK-MED ONCE IV ; Start 05/26/19 at 07:19; Stop 05/26/19 at 07:20; Status DC Dexamethasone Sodium Phosphate (Decadron) 20 mg STK-MED ONCE .ROUTE ; Start 05/26/19 at 07:19; Stop 05/26/19 at 07:20; Status DC Ondansetron HCl (Zofran) 4 mg STK-MED ONCE .ROUTE ; Start 05/26/19 at 07:20; Stop 05/26/19 at 07:20; Status DC Lidocaine HCl (Lidocaine Pf 2% Vial) 5 ml STK-MED ONCE .ROUTE ; Start 05/26/19 at 07:20; Stop 05/26/19 at 07:20; Status DC Phenylephrine HCl (PHENYLEPHRINE in 0.9% NACL PF) 1 mg STK-MED ONCE IV ; Start 05/26/19 at 07:21; Stop 05/26/19 at 07:21; Status DC Desflurane (Suprane) 60 ml STK-MED ONCE IH ; Start 05/26/19 at 07:21; Stop 05/26/19 at 07:21; Status DC Mannitol (Mannitol) 12.5 g STK-MED ONCE .ROUTE ; Start 05/26/19 at 08:11; Stop 05/26/19 at 08:11; Status DC Ondansetron HCl (Zofran) 4 mg PRN Q6HRS PRN IV NAUSEA/VOMITING; Start 05/26/19 at 08:30; Stop 05/26/19 at 19:13; Status DC Fentanyl Citrate (Fentanyl 2ml Vial) 25 mcg PRN Q5MIN PRN IV MILD PAIN 1-3 Last administered on 05/26/19at 12:25; Start 05/26/19 at 08:30; Stop 05/26/19 at 19:13; Status DC Fentanyl Citrate (Fentanyl 2ml Vial) 50 mcg PRN Q5MIN PRN IV MODERATE TO SEVERE PAIN; Start 05/26/19 at 08:30; Stop 05/26/19 at 19:13; Status DC Morphine Sulfate (Morphine Sulfate) 1 mg PRN Q10MIN PRN IV SEVERE PAIN 7-10; Start 05/26/19 at 08:30; Stop 05/26/19 at 19:13; Status DC Ringer's Solution 1,000 ml @ 30 mls/hr Q24H IV Last administered on 05/26/19at 12:50; Start 05/26/19 at 08:28; Stop 05/26/19 at 19:09; Status DC Hydromorphone HCl (Dilaudid) 0.5 mg PRN Q10MIN PRN IV SEV PAIN, Second choice; Start 05/26/19 at 08:30; Stop 05/26/19 at 19:13; Status DC Prochlorperazine Edisylate (Compazine) 5 mg PACU PRN PRN IV NAUSEA, MRX1; Start 05/26/19 at 08:30; Stop 05/26/19 at 19:13; Status DC Cefazolin Sodium/ Dextrose 50 ml @ 100 mls/hr 1X ONCE IV Last administered on 05/26/19at 09:01; Start 05/26/19 at 09:00; Stop 05/26/19 at 09:29; Status DC Rocuronium [place] (Zemuron) 50 mg STK-MED ONCE .ROUTE ; Start 05/26/19 at 09:32; Stop 05/26/19 at 09:32; Status DC Glycopyrrolate (Robinul) 1 mg STK-MED ONCE .ROUTE ; Start 05/26/19 at 09:32; Stop 05/26/19 at 09:33; Status DC Neostigmine [place] (Neostigmine Methylsulfate) 5 mg STK-MED ONCE .ROUTE ; Star t 05/26/19 at 09:32; Stop 05/26/19 at 09:33; Status DC Al Hydroxide/Mg Hydroxide (Mylanta Plus Xs) 30 ml PRN Q3HRS PRN PO HEARTBURN / GAS; Start 05/26/19 at 10:00 Calcium Carbonate/ Glycine (Tums) 500 mg PRN Q3HRS PRN PO INDIGESTION; Start 05/26/19 at 10:00 Sodium Chloride (Normal Saline Flush) 3 ml QSHIFT PRN IV AFTER MEDS AND BLOOD DRAWS; Start 05/26/19 at 10:00 Potassium Chloride/Dextrose/ Sod Cl 1,000 ml @ 75 mls/hr [id number] IV Last administered on 05/27/19at 23:36; Start 05/26/19 at 11:00; Stop 05/28/19 at 15:39; Status DC Dextrose (Dextrose 50%-Water Syringe) 12.5 gm PRN Q15MIN PRN IV SEE COMMENTS; Start 05/26/19 at 10:00 Dextrose (Iv Dextrose 5%) 250 ml PRN Q15MIN PRN IV SEE COMMENTS; Start 05/26/19 at 10:00 Acetaminophen/ Hydrocodone Bitart (Lortab 5/325) 1 tab PRN Q4HRS PRN PO MILD PAIN 1-3; Start 05/26/19 at 10:00 Docusate Sodium (Colace) 100 mg BID PO Last administered on 05/29/19at 08:28; Start 05/26/19 at 21:00 Cefazolin Sodium (Ancef) 1 gm Q8H IVP Last administered on 05/27/19at 09:19; St art 05/26/19 at 17:00; Stop 05/27/19 at 09:01; Status DC Acetaminophen (Tylenol) 650 mg PRN Q6HRS PRN PO HEADACHE/FEVER Last ad ministered on 05/28/19at 20:00; Start 05/26/19 at 10:00 Morphine Sulfate (Morphine Sulfate) 2 mg PRN Q2HR PRN IV PAIN; Start 05/26/19 at 10:15 Fentanyl Citrate (Fentanyl 2ml Vial) 100 mcg STK-MED ONCE .ROUTE ; Start 05/26/19 at 10:12; Stop 05/26/19 at 10:13; Status DC Midazolam HCl (Versed) 2 mg STK-MED ONCE .ROUTE ; Start 05/26/19 at 14:08; Stop 05/26/19 at 14:08; Status DC Atorvastatin Calcium (Lipitor) 10 mg HS PO Last administered on 05/28/19at 20:01; Start 05/26/19 at 21:00 Carbidopa/Levodopa (Sinemet 25/100) 2 tab TID PO Last administered on 05/29/19at 08:26; Start 05/26/19 at 21:00 Cyanocobalamin (Vitamin B-12) 1,000 mcg QMONTH IM ; Start 06/25/19 at 09:00 Dicyclomine HCl (Bentyl) 10 mg PRN TID PRN PO DIARRHEA; Start 05/26/19 at 16:00 Fludrocortisone Acetate (Florinef) 0.1 mg TID PO Last administered on 05/29/19 08:25; Start 05/26/19 at 21:00 Hydralazine HCl (Apresoline) 25 mg TID PO Last administered on 05/29/19at 08:28; Start 05/26/19 at 21:00 Levothyroxine Sodium (Synthroid) 75 mcg DAILY PO Last administered on 05/29/19at 08:28; Start 05/27/19 at 09:00 Potassium Chloride (Klor-Con) 40 meq TIDWMEALS PO Last administered on 05/29/19at 08:25; Start 05/26/19 at 17:00 Spironolactone (Aldactone) 12.5 mg DAILY PO Last administered on 05/29/19at 08:28; Start 05/27/19 at 09:00 Lactobacillus Rhamnosus (Culturelle) 1 cap DAILY PO Last administered on 05/29/19at 08:25; Start 05/27/19 at 09:00 Multivitamins/ Minerals (I-Quita) 2 tab DAILY PO Last administered on 05/29/19at 08:25; Start 05/27/19 at 09:00 Potassium Chloride (Klor-Con) 40 meq 1X ONCE PO Last administered on 05/27/19at 08:05; Start 05/27/19 at 07:00; Stop 05/27/19 at 07:01; Status DC Potassium Chloride (Klor-Con) 40 meq Q2H PO ; Start 05/27/19 at 10:00; Stop 05/27/19 at 12:01; Status DC Potassium Chloride (Klor-Con) 40 meq Q2H PO ; Start 05/27/19 at 07:00; Stop 05/27/19 at 11:01; Status UNV Active Scripts Active Klor-Con M20 (Potassium Chloride) 20 Meq Tab.er.prt 40 Meq PO TIDWMEALS Hydralazine Hcl 25 Mg Tablet 25 Mg PO TID Reported Preservision Areds Tablet (Vit A/Vit C/Vit E/Zinc/Copper) 1 Each Tablet 2 Tab PO DAILY 30 Days Fludrocortisone Acetate 0.1 Mg Tablet 0.1 Mg PO TID Spironolactone 25 Mg Tablet 0.5 Tab PO DAILY Probiotic Blend Capsule (L.acid/L.casei/B.bif/B.philip/Fos) 1 Each Capsule 1 Cap PO DAILY Preservision Areds Tablet (Vit A/Vit C/Vit E/Zinc/Copper) 1 Each Tablet 1 Tab PO DAILY 30 Days Loperamide (Loperamide Hcl) 2 Mg Tablet 1 Mg PO PRN Q4HRS PRN Metamucil (Psyllium Husk) 0.52 Gm Capsule 1 Cap PO DAILY Dicyclomine Hcl 10 Mg Capsule 1 Cap PO PRN TID PRN Cyanocobalamin Injection (Cyanocobalamin (Vitamin B-12)) 1,000 Mcg/1 Ml Vial 1 Ml IM QMONTH Carbidopa-Levodopa 25-100 Tab (Carbidopa/Levodopa) 1 Each Tablet 2 Tab PO TID Levothyroxine Sodium 75 Mcg Tablet 1 Tab PO DAILY Aspir 81 (Aspirin) 81 Mg Tablet. 1 Tab PO DAILY Atorvastatin Calcium 10 Mg Tablet 10 Mg PO HS Vitals/I & O Vital Sign - Last 24 Hours 05/28/19 05/28/19 05/28/19 05/28/19 11:17 13:34 15:19 19:00 Temp 97.5 97.5 98.0 97.5 97.5 98.0 Pulse 73 73 78 80 Resp 16 16 18 B/P (MAP) 153/87 (109) 153/87 148/87 (107) 174/111 (132) Pulse Ox 96 96 94 O2 Delivery Room Air Room Air Room Air 05/28/19 05/28/19 05/28/19 05/29/19 20:00 20:01 23:00 04:50 Temp 97.9 97.9 97.9 97.9 Pulse 78 69 70 Resp 18 18 B/P (MAP) 148/87 131/79 (96) 132/76 (94) Pulse Ox 97 97 O2 Delivery Room Air Room Air Room Air 05/29/19 05/29/19 05/29/19 07:00 07:40 08:28 Pulse 89 89 Resp 18 B/P (MAP) 166/85 (112) 166/85 Pulse Ox 94 O2 Delivery Room Air Room Air Intake and Output 05/28/19 05/28/19 05/29/19 15:00 23:00 07:00 Intake Total 250 ml 600 ml 480 ml Output Total 700 ml Balance 250 ml 600 ml -220 ml Nutrition Consultation Dietary Evaluation: Recommendations by RD: Dietary education by RD, Increase Calorie Intake, Protein supplementation Comments: Continue w/cardiac diet as ordered, honor food preferences, and provide snacks as requested REC Ensure TID Expected Outcomes/Goals: PO intake to meet >75% est needs Interpretation of weight loss: >7.5% in 3 months Malnutrition Findings: Food and Nutrition Intake (Mod: <75% est energy req 7days Weight Status: Appropriate PETRA LION MD May 29, 2019 11:05
--- NOTE | 2019-05-29 12:35 | NUR ---
Discharge Note: ALIREZA RENEE Discharge instructions and discharge home medications reviewed with Other facility and a copy given. All questions have been answered and understanding verbalized. Report given to ZEESHAN Gayle at [facility]. The following instructions and handouts were given: information about medications, mobility, labs, skin issues, etc. Discontinued lines and drains: no IV line present. 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
[2019-06-25] MEDS ORDERED: CYANOCOBALAMIN (VITAMIN B-12) 1,000 MCG/ML VIAL IM SCH (09:00)
== END 2019-05-29 12:35 | DRG 25 ==
LOC: ER 04:16 → 1 WEST ICU 05:20 → 4 NORTH 05-27 13:10
PROVIDERS: ADMIT Internal Medicine; ATTEND Internal Medicine
PROC: 00C40ZZ Extirpation of Matter from Intracranial Subdural Space, Open Approach (ICD-10-PCS; 2019-05-26)
PROC: 00940ZZ Drainage of Intracranial Subdural Space, Open Approach (ICD-10-PCS; principal; 2019-05-26 08:30)
DX: S06.5X9A Traumatic subdural hemorrhage with loss of consciousness of unspecified duration, initial encounter (principal); G93.5 Compression of brain; I25.10 Atherosclerotic heart disease of native coronary artery without angina pectoris; K58.9 Irritable bowel syndrome, unspecified; G20 Parkinson's disease; H91.90 Unspecified hearing loss, unspecified ear; I10 Essential (primary) hypertension; N13.9 Obstructive and reflux uropathy, unspecified; R32 Unspecified urinary incontinence; F02.80 Dementia in other diseases classified elsewhere, unspecified severity, without behavioral disturbance, psychotic disturbance, mood disturbance, and anxiety; W18.30XA Fall on same level, unspecified, initial encounter; Y93.89 Activity, other specified; Y92.89 Other specified places as the place of occurrence of the external cause; Y99.8 Other external cause status; Z82.49 Family history of ischemic heart disease and other diseases of the circulatory system; Z90.49 Acquired absence of other specified parts of digestive tract; Z85.46 Personal history of malignant neoplasm of prostate; Z85.828 Personal history of other malignant neoplasm of skin; Z87.440 Personal history of urinary (tract) infections; Z95.1 Presence of aortocoronary bypass graft; Z95.0 Presence of cardiac pacemaker; Z86.14 Personal history of Methicillin resistant Staphylococcus aureus infection; Z88.8 Allergy status to other drugs, medicaments and biological substances
CPT/HCPCS: 36415; 70450; 80048; 80053; 81001; 84132; 85025; 85610; 87086; 87641; 88112; 88304; 88305; 93005; A7015; C1713; J0690; J0696; J1100; J2001; J2150; J2370; J2405; J2704; J2710; J3010; J3490; J7030; J7050; J7120; G0378

== ENCOUNTER 2019-09-04 11:48 | Inpatient (IN) | payer MEDICARE ==
[~2019-09-04] VITALS: Ht 175.3 cm; Wt 74.2 kg
[2019-09-04] MEDS ORDERED: IV NORMAL SALINE 500ML BAG 500 ML IV ONE (12:00)
[2019-09-04 12:21] LABS: BILIRUBIN,URINE NEGATIVE (NEG); CLARITY,URINE CLEAR; COLOR,URINE YELLOW; NITRITE,URINE NEGATIVE (NEG); PROTEIN,URINE NEGATIVE (NEG-TRACE); UROBILINOGEN,URINE 0.2 mg/dL (0.2 mg/dL)
[2019-09-04 12:29] LABS: BACTERIA,URINE 0 /HPF (0-FEW); RBC,URINE 0 /HPF (0-2); SQUAMOUS EPITHELIAL CELL,UR FEW /LPF; WBC,URINE 0 /HPF (0-4)
[2019-09-04 12:32] LABS: BASO % 0 % (0-3); EOS # 0.1 x10^3/uL (0.0-0.7); EOS % 1 % (0-3); HEMATOCRIT 47.2 % (39.0-53.0); HEMOGLOBIN 16.1 g/dL (13.0-17.5); LYMPH # 4.4 x10^3/uL (1.0-4.8); LYMPH % 46 % (24-48); MEAN CORPUSCULAR HEMOGLOBIN 31 pg (25-35); MEAN CORPUSCULAR HGB CONC 34 g/dL (31-37); MEAN CORPUSCULAR VOLUME 91 fL (79-100); MONO # 0.5 x10^3/uL (0.0-1.1); MONO % 5 % (0-9); NEUT # 4.6 x10^3/uL (1.8-7.7); NEUT % 48 % (31-73); PLATELET COUNT 159 x10^3/uL (140-400); RED BLOOD COUNT 5.16 x10^6/uL (4.30-5.70); RED CELL DISTRIBUTION WIDTH 15.4 % (11.5-14.5); WHITE BLOOD COUNT 9.6 x10^3/uL (4.0-11.0)
[2019-09-04 12:42] LABS: CALCIUM 8.7 mg/dL (8.5-10.1); GFR 71.2; POTASSIUM 3.7 mmol/L (3.5-5.1)
[2019-09-04 12:48] LABS: ALBUMIN 3.6 g/dL (3.4-5.0); ALBUMIN/GLOBULIN RATIO 1.6 (1.0-1.7); MAGNESIUM 1.9 mg/dL (1.8-2.4); TOTAL BILIRUBIN 0.9 mg/dL (0.2-1.0); TOTAL PROTEIN 5.8 g/dL (6.4-8.2)
--- NOTE | 2019-09-04 14:02 | RAD ---
CT HEAD WO CONTRAST History: Altered mental status Comparison: June 09, 2019 Technique: Noncontrast CT imaging was performed of the head. Exposure: One or more of the following individualized dose reduction techniques were utilized for this examination: 1. Automated exposure control 2. Adjustment of the mA and/or kV according to patient size 3. Use of iterative reconstruction technique. Findings: Small left cerebral convexity subdural hematoma, decreased compared to prior. Postoperative changes left frontal craniotomy for previous subdural hematoma evacuation. Significant decreased rightward midline shift. Decreased adjacent mass effect. Brain parenchymal volume loss. Foci of decreased attenuation within the hemispheric white matter, most often due to chronic microvascular ischemia. Left inferior basal ganglia hypodensity, likely prominent perivascular space, unchanged. Imaged orbits are unremarkable. Imaged paranasal sinuses and mastoid air cells are clear. No acute calvarial fracture. Impression: 1. Decreased small left cerebral convexity subdural hematoma. Decreased adjacent mass effect and rightward midline shift. 2. Moderate sequelae of chronic microvascular ischemia, unchanged. Electronically signed by: Hammad Davidson DO (09/04/2019 1:59 PM) [facility] [place]
--- NOTE | 2019-09-04 14:35 | PHYS DOC ---
Past Medical History Past Medical History: CAD, Cancer, Hypertension, Hypotension, IBS, UTI, Other Additional Past Medical Histor: PROSTATE CA, HEART ARRTHY.,MRSA, CDiff, skin ca, Parkinson's Past Surgical History: Appendectomy, Cholecystectomy, Coronary Bypass Surgery, Pacemaker Additional Past Surgical Histo: pacemaker removal s/p MRSA Smoking Status: Former Smoker Alcohol Use: None Drug Use: None General Adult EDM: Chief Complaint: NEAR SYNCOPE HPI: HPI: Patient is an 83-year-old male with multiple medical problems including Parkinson's disease that is very difficult to control. According to the he has become progressively weak over the last day or so to the point that it is affected his ability to get around at home. He has had some shortness of breath but no cough or fever. states he is not been eating or drinking well. He is taking his medications as directed. states she is really unable to care for him at home at this time there were multiple times today where he felt like he was going to pass out. [] Review of Systems: Review of Systems: Constitutional: Reports generalized weakness but denies fever [] Eyes: Denies change in visual acuity. [] HENT: Denies nasal congestion or sore throat. [] Respiratory: Denies cough or shortness of breath. [] Cardiovascular: Denies chest pain or edema. [] GI: Denies abdominal pain, nausea, vomiting, bloody stools or diarrhea. [] : Denies dysuria. [] Musculoskeletal: Denies back pain or joint pain. [] Integument: Denies rash. [] Neurologic: Denies headache, focal weakness or sensory changes. [] Endocrine: Denies polyuria or polydipsia. [] Lymphatic: Denies swollen glands. [] Psychiatric: Reports severe anxiety [] Heart Score: Risk Factors: Risk Factors: DM, Current or recent (<one month) smoker, HTN, HLP, family history of CAD, obesity. Risk Scores: Score 0 - 3: 2.5% MACE over next 6 weeks - Discharge Home Score 4 - 6: 20.3% MACE over next 6 weeks - Admit for Clinical Observation Score 7 - 10: 72.7% MACE over next 6 weeks - Early Invasive Strategies Current Medications: Current Medications Medications (Trade) Dose Ordered Sig/Erika Start Time Stop Time Status Last Admin Dose Admin Sodium Chloride 500 ml @ 500 mls/hr 1X ONCE 09/04/19 12:00 09/04/19 12:59 DC 09/04/19 12:24 500 MLS/HR Allergies: Allergies: Allergies Coded Allergies Type Severity Reaction Last Updated Verified meperidine Allergy Intermediate 05/26/19 Yes Physical Exam: PE: Constitutional: Frail elderly male who appears acutely ill. [] HENT: Normocephalic, atraumatic, bilateral external ears normal, oropharynx moist, no oral exudates, nose normal. [] Eyes: PERRLA, EOMI, conjunctiva normal, no discharge. [] Neck: Normal range of motion, no tenderness, supple, no stridor. [] Cardiovascular:Heart rate regular rhythm, no murmur [] Lungs & Thorax: Bilateral breath sounds clear to auscultation [] Abdomen: Bowel sounds normal, soft, no tenderness, no masses, no pulsatile masses. [] Skin: Warm, dry, no erythema, no rash. [] Back: No tenderness, no CVA tenderness. [] Extremities: No tenderness, no cyanosis, no clubbing, ROM intact, no edema. [] Neurologic: Rhythmic tremors most pronounced in the right hand and arm [] Psychologic: Extremely anxious tearful and crying [] Current Patient Data: Labs: Laboratory Tests Test 09/04/19 11:51 09/04/19 12:15 Urine Collection Type Unknown Urine Color Yellow Urine Clarity Clear Urine pH 7.0 (<5.0-8.0) Urine Specific [place] <=1.005 (1.000-1.030) Urine Protein Negative mg/dL (NEG-TRACE) Urine Glucose (UA) Negative mg/dL (NEG) Urine Ketones (Stick) Negative mg/dL (NEG) Urine Blood Negative (NEG) Urine Nitrite Negative (NEG) Urine Bilirubin Negative (NEG) Urine Urobilinogen Dipstick 0.2 mg/dL (0.2 mg/dL) Urine Leukocyte Esterase Negative (NEG) Urine RBC 0 /HPF (0-2) Urine WBC 0 /HPF (0-4) Urine Squamous Epithelial Cells Few /LPF Urine Bacteria 0 /HPF (0-FEW) White Blood Count 9.6 x10^3/uL (4.0-11.0) Red Blood Count 5.16 x10^6/uL (4.30-5.70) Hemoglobin 16.1 g/dL (13.0-17.5) Hematocrit 47.2 % (39.0-53.0) Mean Corpuscular Volume 91 fL (79-100) Mean Corpuscular Hemoglobin 31 pg (25-35) Mean Corpuscular Hemoglobin Concent 34 g/dL (31-37) Red Cell Distribution Width 15.4 % (11.5-14.5) H Platelet Count 159 x10^3/uL (140-400) Neutrophils (%) (Auto) 48 % (31-73) Lymphocytes (%) (Auto) 46 % (24-48) Monocytes (%) (Auto) 5 % (0-9) Eosinophils (%) (Auto) 1 % (0-3) Basophils (%) (Auto) 0 % (0-3) Neutrophils # (Auto) 4.6 x10^3/uL (1.8-7.7) Lymphocytes # (Auto) 4.4 x10^3/uL (1.0-4.8) Monocytes # (Auto) 0.5 x10^3/uL (0.0-1.1) Eosinophils # (Auto) 0.1 x10^3/uL (0.0-0.7) Basophils # (Auto) 0.0 x10^3/uL (0.0-0.2) Sodium Level 142 mmol/L (136-145) Potassium Level 3.7 mmol/L (3.5-5.1) Chloride Level 103 mmol/L (98-107) Carbon Dioxide Level 27 mmol/L (21-32) Anion Gap 12 (6-14) Blood Urea Nitrogen 9 mg/dL (8-26) Creatinine 1.0 mg/dL (0.7-1.3) Estimated GFR (Cockcroft-Gault) 71.2 BUN/Creatinine Ratio 9 (6-20) Glucose Level 118 mg/dL (70-99) H Calcium Level 8.7 mg/dL (8.5-10.1) Magnesium Level 1.9 mg/dL (1.8-2.4) Total Bilirubin 0.9 mg/dL (0.2-1.0) Aspartate Amino Transferase (AST) 16 U/L (15-37) Alanine Aminotransferase (ALT) 12 U/L (16-63) L Alkaline Phosphatase 51 U/L (46-116) Troponin I Quantitative 0.024 ng/mL (0.000-0.055) Total Protein 5.8 g/dL (6.4-8.2) L Albumin 3.6 g/dL (3.4-5.0) Albumin/Globulin Ratio 1.6 (1.0-1.7) Thyroid Stimulating Hormone (TSH) 3.870 uIU/mL (0.358-3.74) H Laboratory Tests 09/04/19 12:15 Laboratory Tests 09/04/19 12:15 Vital Signs: Vital Signs Date Time Temp Pulse Resp B/P (MAP) Pulse Ox O2 Delivery O2 Flow Rate FiO2 09/04/19 13:00 76 20 09/04/19 11:48 98.1 196/99 (131) 99 Room Air 98.1 EKG: EKG: EKG: Normal sinus rhythm occasional PVCs no obvious acute ischemic ST-T changes [] Radiology/Procedures: Radiology/Procedures: [PROCEDURE: CT HEAD WO CONTRAST CT HEAD WO CONTRAST History: Altered mental status Comparison: June 09, 2019 Technique: Noncontrast CT imaging was performed of the head. Exposure: One or more of the following individualized dose reduction techniques were utilized for this examination: 1. Automated exposure control 2. Adjustment of the mA and/or kV according to patient size 3. Use of iterative reconstruction technique. Findings: Small left cerebral convexity subdural hematoma, decreased compared to prior. Postoperative changes left frontal craniotomy for previous subdural hematoma evacuation. Significant decreased rightward midline shift. Decreased adjacent mass effect. Brain parenchymal volume loss. Foci of decreased attenuation within the hemispheric white matter, most often due to chronic microvascular ischemia. Left inferior basal ganglia hypodensity, likely prominent perivascular space, unchanged. Imaged orbits are unremarkable. Imaged paranasal sinuses and mastoid air cells are clear. No acute calvarial fracture. Impression: 1. Decreased small left cerebral convexity subdural hematoma. Decreased adjacent mass effect and rightward midline shift. 2. Moderate sequelae of chronic microvascular ischemia, unchanged.] Course & Med Decision Making: Course & Med Decision Making Pertinent Labs and Imaging studies reviewed. (See chart for details) [ED course: Evaluation reveals an 83-year-old male with Parkinson's who appears profoundly weak. He is also extremely anxious he was given some IV fluids and an anxiolytic which did seem to help his symptoms. reiterates that she is having a difficult time caring for him at home.] Tal Disclaimer: Dragon Disclaimer: This electronic medical record was generated, in whole or in part, using a voice recognition dictation system. Departure Departure Impression: Primary Impression: Generalized weakness Additional Impression: Near syncope Disposition: 09 ADMITTED INPATIENT Admitting Physician: MICHEL Condition: STABLE Referrals: MARY CLAY MD (PCP) ALEXANDRO MORRIS DO September 04, 2019 14:35
[2019-09-04] MEDS ORDERED: ONDANSETRON PF 4 MG/2 ML VIAL. IV PRN ×2 (15:00→15:15)
[2019-09-04] MEDS ORDERED: ACETAMINOPHEN 325 MG TABLET. PO PRN ×2 (15:00→15:15)
[2019-09-04] MEDS ORDERED: MELA5TAB20 PO (15:06)
[2019-09-04] MEDS ORDERED: LACT1CAP2 PO (15:08)
[2019-09-04] MEDS ORDERED: CALC625T PO (15:12)
[2019-09-04] MEDS ORDERED: ALBUTEROL SULFATE 2.5 MG/3 ML NEBU. NEB PRN (15:15)
[2019-09-04] MEDS ORDERED: guaiFENesin ORAL 200 MG/10 ML LIQUID. PO PRN (15:15)
[2019-09-04] MEDS ORDERED: DICYCLOMINE HCL 10 MG CAPSULE PO PRN (15:15)
[2019-09-04] MEDS ORDERED: DOCUSATE SODIUM 100 MG CAPSULE. PO PRN (15:15)
[2019-09-04] MEDS ORDERED: LORazepam 0.5 MG TABLET PO PRN (15:15)
[2019-09-04] MEDS ORDERED: LOPERAMIDE 2 MG CAPSULE PO PRN (16:15)
--- NOTE | 2019-09-04 17:26 | PDOC1 ---
History and Physical Date of Admission Date of Admission Identification/Chief Complaint Chief Complaint he cannot walk Source Source: Caregiver, Chart review, Patient History of Present Illness History of Present Illness Patient is an 83-year-old gentleman with past medical history of Parkinson's who has been in his usual state of health until approximately 14 hours prior to his admission when according to his he started declining. The patient is oriented in person only or at least he is not cooperating. There have been no changes to his medications and he receive his home medications this morning as usual. is helping with some history nevertheless she seems quite apprehensive as well and is difficult to get further details. She keeps referring to her not "being the same". There have been no slurred speech reports no seizure-like activity the patient had a presyncopal episode did not lose consciousness or fall. Nevertheless due to the presyncopal episode she decided to check his blood pressure and according to patient's the reading was 120 on the diastolic end and she could not remember the systolic. 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 They have not traveled outside this area and have not come in contact with sick people, there have been no reports of fever headaches generalized malaise no chest pain no palpitations no shortness of breath has been reported no abdominal pain no nausea vomiting or diarrhea. Appetite has been very much normal according to patient's . As per report from ER the patient was quite agitated prior to receiving Ativan which seems to have calmed his mood down. Main concern from the is that the patient does not seem to be at baseline reason why we were asked to admit the patient for further evaluation and treatment. Of note is that the patient's blood pressure at the time of my visit is 210/120. The patient denies blurred vision no headache no chest pressure and no other signs of end organ damage nor hemodynamic instability. He is not exhibiting focal neurological deficits plan of care has been explained in detail and all of their concerns were addressed to the best of my abilities, has been caring for the patient for several years but it seems that she has been not able to cope with the events over the last 12 hours Past Medical History Cardiovascular: CAD, HTN, Hyperlipidemia, Other Pulmonary: No pertinent hx CENTRAL NERVOUS SYSTEM: Other GI: Other Heme/Onc: No pertinent hx, Cancer Hepatobiliary: No pertinent hx Psych: No pertinent hx Rheumatologic: No pertinent hx Infectious disease: No pertinent hx Renal/: Prostate Ca. Endocrine: Hypothyroidism Past Surgical History Past Surgical History: Pacemaker, Appendectomy, Cholecystectomy, CABG, Colon Resection, Other Family History Family History: Coronary Artery Disease, Other Social History ALCOHOL: none Drugs: None Current Problem List Problem List Problems Medical Problems: (1) Generalized weakness Status: Acute (2) Near syncope Status: Acute Current Medications Current Medications Current Medications Medications (Trade) Dose Ordered Sig/Erika Start Time Stop Time Status Last Admin Dose Admin Acetaminophen (Tylenol) 650 mg PRN Q4HRS PRN 09/04/19 15:15 Albuterol Sulfate (Ventolin Neb Soln) 2.5 mg PRN Q4HRS PRN 09/04/19 15:15 Aspirin (Ecotrin) 81 mg DAILY 09/05/19 09:00 Atorvastatin Calcium (Lipitor) 10 mg HS 09/04/19 21:00 Carbidopa/Levodopa (Sinemet 25/100) 2 tab TID 09/04/19 16:00 Cyanocobalamin (Vitamin B-12) 1,000 mcg QMONTH 10/04/19 09:00 Dicyclomine HCl (Bentyl) 10 mg PRN TID PRN 09/04/19 15:15 Docusate Sodium (Colace) 100 mg PRN BID PRN 09/04/19 15:15 Enoxaparin Sodium (Lovenox 40mg Syringe) 40 mg Q24H 09/04/19 16:00 Fludrocortisone Acetate (Florinef) 0.1 mg TID 09/04/19 16:30 Guaifenesin (Robitussin) 200 mg PRN Q4HRS PRN 09/04/19 15:15 Hydralazine HCl (Apresoline) 25 mg TID 09/04/19 16:30 Lactobacillus Rhamnosus (Culturelle) 1 cap BID 09/04/19 21:00 Levothyroxine Sodium (Synthroid) 75 mcg DAILY06 09/05/19 06:00 Loperamide HCl (Imodium) 2 mg PRN Q15MIN PRN 09/04/19 16:15 Lorazepam (Ativan Inj) 0.5 mg 1X ONCE 09/04/19 14:45 09/04/19 14:46 DC 09/04/19 15:30 0.5 MG Lorazepam (Ativan) 0.5 mg PRN Q4HRS PRN 09/04/19 15:15 Multivitamins/ Minerals (I-Quita) 1 tab DAILY 09/05/19 09:00 Non-Formulary Medication (L.acid/L.casei/ B.bif/B.philip/Fos (Probiotic Blend Capsule)) 1 cap DAILY 09/05/19 09:00 UNV Non-Formulary Medication (Vit A/Vit C/Vit E/Zinc/Copper (Preservision Areds Tablet)) 2 tab DAILY 09/05/19 09:00 UNV Ondansetron HCl (Zofran) 4 mg PRN Q4HRS PRN 09/04/19 15:15 Potassium Chloride (Klor-Con) 40 meq TIDWMEALS 09/04/19 17:00 Psyllium Hydrophilic Mucilloid (Metamucil Fiber Packet) 1 pkt DAILY 09/05/19 09:00 Sodium Chloride 500 ml @ 500 mls/hr 1X ONCE 09/04/19 12:00 09/04/19 12:59 DC 09/04/19 12:24 500 MLS/HR Spironolactone (Aldactone) 12.5 mg DAILY 09/04/19 16:30 Zolpidem Tartrate (Ambien) 5 mg PRN QHS PRN 09/04/19 15:15 Allergies Allergies Allergies Coded Allergies Type Severity Reaction Last Updated Verified meperidine Allergy Intermediate 05/26/19 Yes ROS Review of System Unable to assess Physical Exam Physical Exam GEN.: No apparent distress. Alert and oriented in person HEENT: Head is normocephalic, atraumatic NECK: Supple. LUNGS: Clear to auscultation. HEART: RRR, S1, S2 present. Peripheral pulses intact ABDOMEN: Soft, nontender. Positive bowel sounds. EXTREMITIES: Without any cyanosis. NEUROLOGIC: cn 2 to 12 intact no motor or sensory deficits, parkinsons tremor present PSYCHIATRIC: Normal affect, normal mood. SKIN: No ulcerations Vitals Vitals Vital Signs Date Time Temp Pulse Resp B/P (MAP) Pulse Ox O2 Delivery O2 Flow Rate FiO2 09/04/19 13:00 76 20 09/04/19 11:48 98.1 196/99 (131) 99 Room Air 98.1 Labs Labs Laboratory Tests Test 09/04/19 11:51 09/04/19 12:15 Urine Collection Type Unknown Urine Color Yellow Urine Clarity Clear Urine pH 7.0 (<5.0-8.0) Urine Specific Blevins <=1.005 (1.000-1.030) Urine Protein Negative mg/dL (NEG-TRACE) Urine Glucose (UA) Negative mg/dL (NEG) Urine Ketones (Stick) Negative mg/dL (NEG) Urine Blood Negative (NEG) Urine Nitrite Negative (NEG) Urine Bilirubin Negative (NEG) Urine Urobilinogen Dipstick 0.2 mg/dL (0.2 mg/dL) Urine Leukocyte Esterase Negative (NEG) Urine RBC 0 /HPF (0-2) Urine WBC 0 /HPF (0-4) Urine Squamous Epithelial Cells Few /LPF Urine Bacteria 0 /HPF (0-FEW) White Blood Count 9.6 x10^3/uL (4.0-11.0) Red Blood Count 5.16 x10^6/uL (4.30-5.70) Hemoglobin 16.1 g/dL (13.0-17.5) Hematocrit 47.2 % (39.0-53.0) Mean Corpuscular Volume 91 fL (79-100) Mean Corpuscular Hemoglobin 31 pg (25-35) Mean Corpuscular Hemoglobin Concent 34 g/dL (31-37) Red Cell Distribution Width 15.4 % (11.5-14.5) Platelet Count 159 x10^3/uL (140-400) Neutrophils (%) (Auto) 48 % (31-73) Lymphocytes (%) (Auto) 46 % (24-48) Monocytes (%) (Auto) 5 % (0-9) Eosinophils (%) (Auto) 1 % (0-3) Basophils (%) (Auto) 0 % (0-3) Neutrophils # (Auto) 4.6 x10^3/uL (1.8-7.7) Lymphocytes # (Auto) 4.4 x10^3/uL (1.0-4.8) Monocytes # (Auto) 0.5 x10^3/uL (0.0-1.1) Eosinophils # (Auto) 0.1 x10^3/uL (0.0-0.7) Basophils # (Auto) 0.0 x10^3/uL (0.0-0.2) Sodium Level 142 mmol/L (136-145) Potassium Level 3.7 mmol/L (3.5-5.1) Chloride Level 103 mmol/L (98-107) Carbon Dioxide Level 27 mmol/L (21-32) Anion Gap 12 (6-14) Blood Urea Nitrogen 9 mg/dL (8-26) Creatinine 1.0 mg/dL (0.7-1.3) Estimated GFR (Cockcroft-Gault) 71.2 BUN/Creatinine Ratio 9 (6-20) Glucose Level 118 mg/dL (70-99) Calcium Level 8.7 mg/dL (8.5-10.1) Magnesium Level 1.9 mg/dL (1.8-2.4) Total Bilirubin 0.9 mg/dL (0.2-1.0) Aspartate Amino Transf (AST/SGOT) 16 U/L (15-37) Alanine Aminotransferase (ALT/SGPT) 12 U/L (16-63) Alkaline Phosphatase 51 U/L (46-116) Troponin I Quantitative 0.024 ng/mL (0.000-0.055) Total Protein 5.8 g/dL (6.4-8.2) Albumin 3.6 g/dL (3.4-5.0) Albumin/Globulin Ratio 1.6 (1.0-1.7) Thyroid Stimulating Hormone (TSH) 3.870 uIU/mL (0.358-3.74) Laboratory Tests Test 09/04/19 11:51 09/04/19 12:15 Urine Collection Type Unknown Urine Color Yellow Urine Clarity Clear Urine pH 7.0 (<5.0-8.0) Urine Specific Blevins <=1.005 (1.000-1.030) Urine Protein Negative mg/dL (NEG-TRACE) Urine Glucose (UA) Negative mg/dL (NEG) Urine Ketones (Stick) Negative mg/dL (NEG) Urine Blood Negative (NEG) Urine Nitrite Negative (NEG) Urine Bilirubin Negative (NEG) Urine Urobilinogen Dipstick 0.2 mg/dL (0.2 mg/dL) Urine Leukocyte Esterase Negative (NEG) Urine RBC 0 /HPF (0-2) Urine WBC 0 /HPF (0-4) Urine Squamous Epithelial Cells Few /LPF Urine Bacteria 0 /HPF (0-FEW) White Blood Count 9.6 x10^3/uL (4.0-11.0) Red Blood Count 5.16 x10^6/uL (4.30-5.70) Hemoglobin 16.1 g/dL (13.0-17.5) Hematocrit 47.2 % (39.0-53.0) Mean Corpuscular Volume 91 fL (79-100) Mean Corpuscular Hemoglobin 31 pg (25-35) Mean Corpuscular Hemoglobin Concent 34 g/dL (31-37) Red Cell Distribution Width 15.4 % (11.5-14.5) Platelet Count 159 x10^3/uL (140-400) Neutrophils (%) (Auto) 48 % (31-73) Lymphocytes (%) (Auto) 46 % (24-48) Monocytes (%) (Auto) 5 % (0-9) Eosinophils (%) (Auto) 1 % (0-3) Basophils (%) (Auto) 0 % (0-3) Neutrophils # (Auto) 4.6 x10^3/uL (1.8-7.7) Lymphocytes # (Auto) 4.4 x10^3/uL (1.0-4.8) Monocytes # (Auto) 0.5 x10^3/uL (0.0-1.1) Eosinophils # (Auto) 0.1 x10^3/uL (0.0-0.7) Basophils # (Auto) 0.0 x10^3/uL (0.0-0.2) Sodium Level 142 mmol/L (136-145) Potassium Level 3.7 mmol/L (3.5-5.1) Chloride Level 103 mmol/L (98-107) Carbon Dioxide Level 27 mmol/L (21-32) Anion Gap 12 (6-14) Blood Urea Nitrogen 9 mg/dL (8-26) Creatinine 1.0 mg/dL (0.7-1.3) Estimated GFR (Cockcroft-Gault) 71.2 BUN/Creatinine Ratio 9 (6-20) Glucose Level 118 mg/dL (70-99) Calcium Level 8.7 mg/dL (8.5-10.1) Magnesium Level 1.9 mg/dL (1.8-2.4) Total Bilirubin 0.9 mg/dL (0.2-1.0) Aspartate Amino Transf (AST/SGOT) 16 U/L (15-37) Alanine Aminotransferase (ALT/SGPT) 12 U/L (16-63) Alkaline Phosphatase 51 U/L (46-116) Troponin I Quantitative 0.024 ng/mL (0.000-0.055) Total Protein 5.8 g/dL (6.4-8.2) Albumin 3.6 g/dL (3.4-5.0) Albumin/Globulin Ratio 1.6 (1.0-1.7) Thyroid Stimulating Hormone (TSH) 3.870 uIU/mL (0.358-3.74) VTE Prophylaxis Ordered VTE Prophylaxis Devices: No VTE Pharmacological Prophylaxi: Yes Assessment/Plan Assessment/Plan Hypertensive urgency Encephalopathy secondary to the above Parkinson's disease History of hyper parathyroidism with elevated TSH History of dyslipidemia Plan We will control blood pressure and monitor over the next few hours and repeat laboratory data Once her hypertensive urgency has been resolved we will reassess in the a.m. his neurological status Avoid medications that can alter his sensorium Resume home medications Will most likely need physical therapy evaluation once more medically stable Disposition: Pending clinical course Reassurance provided to the DVT prophylaxis with Lovenox Further recommendations based on the clinical course NOEL RAMIREZ MD September 04, 2019 17:26
[2019-09-04] MEDS ORDERED: ENALAPRILAT 1.25 MG/ML VIAL. IVP PRN (17:30)
[2019-09-04] MEDS ORDERED: METOPROLOL TARTRATE 5 MG/5 ML VIAL. IVP PRN (17:45)
[2019-09-04] MEDS: FLUDROCORTISONE 0.1 MG TABLET PO SCH ×2 (18:02→20:33)
[2019-09-04] MEDS: POTASSIUM CHLORIDE 20 MEQ TABLET.ER. PO SCH (18:03)
[2019-09-04] MEDS: hydrALAZINE 25 MG TABLET PO SCH ×2 (18:03→20:34)
[2019-09-04] MEDS: CARBIDOPA/LEVODOPA 25/100MG TABLET PO SCH ×2 (18:04→20:33)
[2019-09-04] MEDS: SPIRONOLACTONE 25 MG TABLET PO SCH (18:04)
[2019-09-04] MEDS: ENOXAPARIN 40 MG/0.4 ML SYRINGE. SQ SCH (18:06)
[2019-09-04 19:00] VITALS: BP 175/104
--- NOTE | 2019-09-04 19:31 | CONS ---
DATE OF CONSULTATION: 09/04/2019 REASON FOR CONSULTATION: Weakness. CONSULTING PHYSICIAN: Keyon Chavez M.D. HISTORY OF PRESENT ILLNESS: This is an 83-year-old man who has been admitted for failure to thrive. reported that he has been getting worse with respect to his mentation. He has a longstanding history of Parkinson's disease and dysautonomia. Previously, he was admitted here for hypotension and it appears that this midodrine may have caused hypertension as when he was admitted to the hospital, he was noted to be encephalopathic with systolic blood pressures above 190. Currently, he is in much better shape and feels comfortable. Denies any chest pain or dyspnea. PAST MEDICAL HISTORY: 1. Coronary artery disease status post bypass. 2. Hypertension. 3. Dyslipidemia. 4. Parkinson's disease. 5. Irritable bowel syndrome. 6. Prostate cancer, in remission. 7. 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 SOCIAL HISTORY: He is . No alcohol, tobacco, or illicit drug use. ALLERGIES: MEPERIDINE. MEDICATIONS: Current cardiovascular medications, 1. Aspirin 81 mg daily. 2. Atorvastatin 10 mg daily. 3. Metoprolol 10 mg IV push q.6 h. 4. Enalapril 1.25 mg p.r.n. IV push q.6 h. 5. Spironolactone 12.5 mg daily. 6. Hydralazine 25 mg p.o. t.i.d. 7. Fludrocortisone acetate 0.1 mg p.o. t.i.d. REVIEW OF SYSTEMS: Unable to be obtained due to the patient's mentation. PHYSICAL EXAMINATION: VITAL SIGNS: Stable. GENERAL: No apparent distress, alert and oriented to person only. HEAD AND NECK: Unremarkable. NECK: Supple. LUNGS: Clear. CARDIAC: Regular rate and rhythm. ABDOMEN: Soft and nontender. EXTREMITIES: No obvious cyanosis. NEUROLOGIC: No focal deficits. PSYCHIATRIC: Flat affect. SKIN: No obvious ulceration. LABORATORY DATA: Hemoglobin, platelets, creatinine, and potassium within normal limits. Troponin negative x 1. TSH is mildly elevated at 3.9. DIAGNOSTIC DATA: Head CT is unremarkable except for decrease in the left cerebral convexity subdural hematoma that was previously noted. IMPRESSION: Labile blood pressures due to dysautonomia. RECOMMENDATIONS: Agree with current blood pressure regimen. Monitor for hypotension. We will follow along closely. Poor long-term prognosis. Consider outpatient referral to [facility] for evaluation at the [facility]. PRAFUL MEDINA MD DR: [email or web address] JOB#: [id number] / [id number]
[2019-09-04] MEDS: ATORVASTATIN CALCIUM 10 MG TABLET. PO SCH (20:33)
[2019-09-04] MEDS: LACTOBACILLUS RHAMNOSUS GG 1 CAPSULE. PO SCH (20:34)
[2019-09-04 23:00] VITALS: BP 150/102
[2019-09-04] MEDS: ZOLPIDEM 5 MG TABLET. PO PRN (23:54)
[2019-09-05] VITALS (8 sets, daily range): BP systolic 104–165; BP diastolic 72–97
[2019-09-05] MEDS: LEVOTHYROXINE 75 MCG TABLET PO SCH (06:00)
[2019-09-05] MEDS: FLUDROCORTISONE 0.1 MG TABLET PO SCH ×3 (08:50→21:04)
[2019-09-05] MEDS: SPIRONOLACTONE 25 MG TABLET PO SCH (08:51)
[2019-09-05] MEDS: ASPIRIN ENTERIC COATED 81 MG TABLET.DR. PO SCH (08:52)
[2019-09-05] MEDS: LACTOBACILLUS RHAMNOSUS GG 1 CAPSULE. PO SCH ×2 (08:52→21:04)
[2019-09-05] MEDS: POTASSIUM CHLORIDE 20 MEQ TABLET.ER. PO SCH ×3 (08:52→17:26)
[2019-09-05] MEDS: hydrALAZINE 25 MG TABLET PO SCH ×3 (08:56→21:07)
[2019-09-05] MEDS ORDERED: CASEI PO SCH (09:00)
[2019-09-05] MEDS ORDERED: B LON PO SCH (09:00)
[2019-09-05] MEDS ORDERED: VIT C PO SCH (09:00)
[2019-09-05] MEDS ORDERED: ACID PO SCH (09:00)
[2019-09-05] MEDS ORDERED: ZINC PO SCH (09:00)
[2019-09-05] MEDS ORDERED: VIT E PO SCH (09:00)
[2019-09-05] MEDS ORDERED: COPPER PO SCH (09:00)
[2019-09-05] MEDS ORDERED: VIT A PO SCH (09:00)
[2019-09-05] MEDS ORDERED: B BIF PO SCH (09:00)
[2019-09-05] MEDS ORDERED: FOS PO SCH (09:00)
[2019-09-05] MEDS: PSYLLIUM HUSK (SUGAR FREE) 1 PKT PACKET PO SCH (09:34)
[2019-09-05] MEDS: MULTIVITAMIN I-VITE TABLET. PO SCH (09:34)
[2019-09-05] MEDS: CARBIDOPA/LEVODOPA 25/100MG TABLET PO SCH ×3 (09:34→21:04)
--- NOTE | 2019-09-05 11:32 | PDOC ---
PROGRESS NOTES Chief Complaint Chief Complaint Hypertensive urgency Encephalopathy secondary to the above Parkinson's disease History of hyper parathyroidism with elevated TSH History of dyslipidemia History of Present Illness History of Present Illness PT and OT CV following better BP control, check orthostatics may need outpatient f/u at Neuro consult Vitals Vitals Vital Signs Date Time Temp Pulse Resp B/P (MAP) Pulse Ox O2 Delivery O2 Flow Rate FiO2 09/05/19 08:56 81 122/86 09/05/19 08:00 Room Air 09/05/19 07:20 97.6 18 94 97.6 Physical Exam General: Alert, Cooperative, Other (confused, not well oriented) Lungs: Clear Abdomen: Normal bowel sounds Extremities: No clubbing Skin: No rashes Labs LABS Laboratory Tests Test 09/04/19 11:51 09/04/19 12:15 Urine Collection Type Unknown Urine Color Yellow Urine Clarity Clear Urine pH 7.0 (<5.0-8.0) Urine Specific [place] <=1.005 (1.000-1.030) Urine Protein Negative mg/dL (NEG-TRACE) Urine Glucose (UA) Negative mg/dL (NEG) Urine Ketones (Stick) Negative mg/dL (NEG) Urine Blood Negative (NEG) Urine Nitrite Negative (NEG) Urine Bilirubin Negative (NEG) Urine Urobilinogen Dipstick 0.2 mg/dL (0.2 mg/dL) Urine Leukocyte Esterase Negative (NEG) Urine RBC 0 /HPF (0-2) Urine WBC 0 /HPF (0-4) Urine Squamous Epithelial Cells Few /LPF Urine Bacteria 0 /HPF (0-FEW) White Blood Count 9.6 x10^3/uL (4.0-11.0) Red Blood Count 5.16 x10^6/uL (4.30-5.70) Hemoglobin 16.1 g/dL (13.0-17.5) Hematocrit 47.2 % (39.0-53.0) Mean Corpuscular Volume 91 fL (79-100) Mean Corpuscular Hemoglobin 31 pg (25-35) Mean Corpuscular Hemoglobin Concent 34 g/dL (31-37) Red Cell Distribution Width 15.4 % (11.5-14.5) Platelet Count 159 x10^3/uL (140-400) Neutrophils (%) (Auto) 48 % (31-73) Lymphocytes (%) (Auto) 46 % (24-48) Monocytes (%) (Auto) 5 % (0-9) Eosinophils (%) (Auto) 1 % (0-3) Basophils (%) (Auto) 0 % (0-3) Neutrophils # (Auto) 4.6 x10^3/uL (1.8-7.7) Lymphocytes # (Auto) 4.4 x10^3/uL (1.0-4.8) Monocytes # (Auto) 0.5 x10^3/uL (0.0-1.1) Eosinophils # (Auto) 0.1 x10^3/uL (0.0-0.7) Basophils # (Auto) 0.0 x10^3/uL (0.0-0.2) Sodium Level 142 mmol/L (136-145) Potassium Level 3.7 mmol/L (3.5-5.1) Chloride Level 103 mmol/L (98-107) Carbon Dioxide Level 27 mmol/L (21-32) Anion Gap 12 (6-14) Blood Urea Nitrogen 9 mg/dL (8-26) Creatinine 1.0 mg/dL (0.7-1.3) Estimated GFR (Cockcroft-Gault) 71.2 BUN/Creatinine Ratio 9 (6-20) Glucose Level 118 mg/dL (70-99) Calcium Level 8.7 mg/dL (8.5-10.1) Magnesium Level 1.9 mg/dL (1.8-2.4) Total Bilirubin 0.9 mg/dL (0.2-1.0) Aspartate Amino Transf (AST/SGOT) 16 U/L (15-37) Alanine Aminotransferase (ALT/SGPT) 12 U/L (16-63) Alkaline Phosphatase 51 U/L (46-116) Troponin I Quantitative 0.024 ng/mL (0.000-0.055) Total Protein 5.8 g/dL (6.4-8.2) Albumin 3.6 g/dL (3.4-5.0) Albumin/Globulin Ratio 1.6 (1.0-1.7) Thyroid Stimulating Hormone (TSH) 3.870 uIU/mL (0.358-3.74) Free Thyroxine 1.46 ng/dL (0.76-1.46) Assessment and Plan Assessmemt and Plan Problems Medical Problems: (1) Generalized weakness Status: Acute (2) Near syncope Status: Acute Comment Review of Relevant I have reviewed the following items maira (where applicable) has been applied. Labs Laboratory Tests Test 09/04/19 11:51 09/04/19 12:15 Urine Collection Type Unknown Urine Color Yellow Urine Clarity Clear Urine pH 7.0 (<5.0-8.0) Urine Specific [place] <=1.005 (1.000-1.030) Urine Protein Negative mg/dL (NEG-TRACE) Urine Glucose (UA) Negative mg/dL (NEG) Urine Ketones (Stick) Negative mg/dL (NEG) Urine Blood Negative (NEG) Urine Nitrite Negative (NEG) Urine Bilirubin Negative (NEG) Urine Urobilinogen Dipstick 0.2 mg/dL (0.2 mg/dL) Urine Leukocyte Esterase Negative (NEG) Urine RBC 0 /HPF (0-2) Urine WBC 0 /HPF (0-4) Urine Squamous Epithelial Cells Few /LPF Urine Bacteria 0 /HPF (0-FEW) White Blood Count 9.6 x10^3/uL (4.0-11.0) Red Blood Count 5.16 x10^6/uL (4.30-5.70) Hemoglobin 16.1 g/dL (13.0-17.5) Hematocrit 47.2 % (39.0-53.0) Mean Corpuscular Volume 91 fL (79-100) Mean Corpuscular Hemoglobin 31 pg (25-35) Mean Corpuscular Hemoglobin Concent 34 g/dL (31-37) Red Cell Distribution Width 15.4 % (11.5-14.5) Platelet Count 159 x10^3/uL (140-400) Neutrophils (%) (Auto) 48 % (31-73) Lymphocytes (%) (Auto) 46 % (24-48) Monocytes (%) (Auto) 5 % (0-9) Eosinophils (%) (Auto) 1 % (0-3) Basophils (%) (Auto) 0 % (0-3) Neutrophils # (Auto) 4.6 x10^3/uL (1.8-7.7) Lymphocytes # (Auto) 4.4 x10^3/uL (1.0-4.8) Monocytes # (Auto) 0.5 x10^3/uL (0.0-1.1) Eosinophils # (Auto) 0.1 x10^3/uL (0.0-0.7) Basophils # (Auto) 0.0 x10^3/uL (0.0-0.2) Sodium Level 142 mmol/L (136-145) Potassium Level 3.7 mmol/L (3.5-5.1) Chloride Level 103 mmol/L (98-107) Carbon Dioxide Level 27 mmol/L (21-32) Anion Gap 12 (6-14) Blood Urea Nitrogen 9 mg/dL (8-26) Creatinine 1.0 mg/dL (0.7-1.3) Estimated GFR (Cockcroft-Gault) 71.2 BUN/Creatinine Ratio 9 (6-20) Glucose Level 118 mg/dL (70-99) Calcium Level 8.7 mg/dL (8.5-10.1) Magnesium Level 1.9 mg/dL (1.8-2.4) Total Bilirubin 0.9 mg/dL (0.2-1.0) Aspartate Amino Transf (AST/SGOT) 16 U/L (15-37) Alanine Aminotransferase (ALT/SGPT) 12 U/L (16-63) Alkaline Phosphatase 51 U/L (46-116) Troponin I Quantitative 0.024 ng/mL (0.000-0.055) Total Protein 5.8 g/dL (6.4-8.2) Albumin 3.6 g/dL (3.4-5.0) Albumin/Globulin Ratio 1.6 (1.0-1.7) Thyroid Stimulating Hormone (TSH) 3.870 uIU/mL (0.358-3.74) Free Thyroxine 1.46 ng/dL (0.76-1.46) Laboratory Tests Test 09/04/19 11:51 09/04/19 12:15 Urine Collection Type Unknown Urine Color Yellow Urine Clarity Clear Urine pH 7.0 (<5.0-8.0) Urine Specific [place] <=1.005 (1.000-1.030) Urine Protein Negative mg/dL (NEG-TRACE) Urine Glucose (UA) Negative mg/dL (NEG) Urine Ketones (Stick) Negative mg/dL (NEG) Urine Blood Negative (NEG) Urine Nitrite Negative (NEG) Urine Bilirubin Negative (NEG) Urine Urobilinogen Dipstick 0.2 mg/dL (0.2 mg/dL) Urine Leukocyte Esterase Negative (NEG) Urine RBC 0 /HPF (0-2) Urine WBC 0 /HPF (0-4) Urine Squamous Epithelial Cells Few /LPF Urine Bacteria 0 /HPF (0-FEW) White Blood Count 9.6 x10^3/uL (4.0-11.0) Red Blood Count 5.16 x10^6/uL (4.30-5.70) Hemoglobin 16.1 g/dL (13.0-17.5) Hematocrit 47.2 % (39.0-53.0) Mean Corpuscular Volume 91 fL (79-100) Mean Corpuscular Hemoglobin 31 pg (25-35) Mean Corpuscular Hemoglobin Concent 34 g/dL (31-37) Red Cell Distribution Width 15.4 % (11.5-14.5) Platelet Count 159 x10^3/uL (140-400) Neutrophils (%) (Auto) 48 % (31-73) Lymphocytes (%) (Auto) 46 % (24-48) Monocytes (%) (Auto) 5 % (0-9) Eosinophils (%) (Auto) 1 % (0-3) Basophils (%) (Auto) 0 % (0-3) Neutrophils # (Auto) 4.6 x10^3/uL (1.8-7.7) Lymphocytes # (Auto) 4.4 x10^3/uL (1.0-4.8) Monocytes # (Auto) 0.5 x10^3/uL (0.0-1.1) Eosinophils # (Auto) 0.1 x10^3/uL (0.0-0.7) Basophils # (Auto) 0.0 x10^3/uL (0.0-0.2) Sodium Level 142 mmol/L (136-145) Potassium Level 3.7 mmol/L (3.5-5.1) Chloride Level 103 mmol/L (98-107) Carbon Dioxide Level 27 mmol/L (21-32) Anion Gap 12 (6-14) Blood Urea Nitrogen 9 mg/dL (8-26) Creatinine 1.0 mg/dL (0.7-1.3) Estimated GFR (Cockcroft-Gault) 71.2 BUN/Creatinine Ratio 9 (6-20) Glucose Level 118 mg/dL (70-99) Calcium Level 8.7 mg/dL (8.5-10.1) Magnesium Level 1.9 mg/dL (1.8-2.4) Total Bilirubin 0.9 mg/dL (0.2-1.0) Aspartate Amino Transf (AST/SGOT) 16 U/L (15-37) Alanine Aminotransferase (ALT/SGPT) 12 U/L (16-63) Alkaline Phosphatase 51 U/L (46-116) Troponin I Quantitative 0.024 ng/mL (0.000-0.055) Total Protein 5.8 g/dL (6.4-8.2) Albumin 3.6 g/dL (3.4-5.0) Albumin/Globulin Ratio 1.6 (1.0-1.7) Thyroid Stimulating Hormone (TSH) 3.870 uIU/mL (0.358-3.74) Free Thyroxine 1.46 ng/dL (0.76-1.46) Medications Current Medications Sodium Chloride 500 ml @ 500 mls/hr 1X ONCE IV Last administered on 09/04/19at 12:24; Start 09/04/19 at 12:00; Stop 09/04/19 at 12:59; Status DC Lorazepam (Ativan Inj) 0.5 mg 1X ONCE IVP Last administered on 09/04/19at 15:30; Start 09/04/19 at 14:45; Stop 09/04/19 at 14:46; Status DC Ondansetron HCl (Zofran) 4 mg PRN Q8HRS PRN IV NAUSEA/VOMITING; Start 09/04/19 at 15:00; Stop 09/05/19 at 14:59 Acetaminophen (Tylenol) 650 mg PRN Q4HRS PRN PO FEVER > 100.3'F; Start 09/04/19 at 15:00; Stop 09/05/19 at 14:59 Aspirin (Ecotrin) 81 mg DAILY PO Last administered on 09/05/19at 08:52; Start 09/05/19 at 09:00 Atorvastatin Calcium (Lipitor) 10 mg HS PO Last administered on 09/04/19at 20:33; Start 09/04/19 at 21:00 Carbidopa/Levodopa (Sinemet 25/100) 2 tab TID PO Last administered on 09/05/19at 09:34; Start 09/04/19 at 16:00 Cyanocobalamin (Vitamin B-12) 1,000 mcg QMONTH IM ; Start 10/04/19 at 09:00 Dicyclomine HCl (Bentyl) 10 mg PRN TID PRN PO DIARRHEA; Start 09/04/19 at 15:15 Fludrocortisone Acetate (Florinef) 0.1 mg TID PO Last administered on 09/05/19at 08:50; Start 09/04/19 at 16:30 Hydralazine HCl (Apresoline) 25 mg TID PO Last administered on 09/05/19at 08:56; Start 09/04/19 at 16:30 Levothyroxine Sodium (Synthroid) 75 mcg DAILY06 PO ; Start 09/05/19 at 06:00 Potassium Chloride (Klor-Con) 40 meq TIDWMEALS PO Last administered on 02/14at 08:52; Start 09/04/19 at 17:00 Spironolactone (Aldactone) 12.5 mg DAILY PO Last administered on 09/05/19at 08:51; Start 09/04/19 at 16:30 Non-Formulary Medication (L.acid/L.casei/ B.bif/B.philip/Fos (Probiotic Blend Capsule)) 1 cap DAILY PO ; Start 09/05/19 at 09:00; Status UNV Lactobacillus Rhamnosus (Culturelle) 1 cap BID PO Last administered on 09/05/19at 08:52; Start 09/04/19 at 21:00 Loperamide HCl (Imodium) 2 mg PRN Q15MIN PRN PO DIARRHEA; Start 09/04/19 at 16:15 Psyllium Hydrophilic Mucilloid (Metamucil Fiber Packet) 1 pkt DAILY PO Last administered on 09/05/19at 09:34; Start 09/05/19 at 09:00 Multivitamins/ Minerals (I-Quita) 1 tab DAILY PO Last administered on 09/05/19at 09:34; Start 09/05/19 at 09:00 Non-Formulary Medication (Vit A/Vit C/Vit E/Zinc/Copper (Preservision Areds Tablet)) 2 tab DAILY PO ; Start 09/05/19 at 09:00; Status UNV Ondansetron HCl (Zofran) 4 mg PRN Q4HRS PRN IV NAUSEA/VOMITING; Start 09/04/19 at 15:15 Zolpidem Tartrate (Ambien) 5 mg PRN QHS PRN PO INSOMNIA Last administered on 09/04/19at 23:54; Start 09/04/19 at 15:15 Acetaminophen (Tylenol) 650 mg PRN Q4HRS PRN PO TEMP OVER 100.4F OR MILD PAIN; Start 09/04/19 at 15:15 Docusate Sodium (Colace) 100 mg PRN BID PRN PO CONSTIPATION; Start 09/04/19 at 15:15 Albuterol Sulfate (Ventolin Neb Soln) 2.5 mg PRN Q4HRS PRN NEB SHORTNESS OF BREATH; Start 09/04/19 at 15:15 Guaifenesin (Robitussin) 200 mg PRN Q4HRS PRN PO COUGH; Start 09/04/19 at 15:15 Lorazepam (Ativan) 0.5 mg PRN Q4HRS PRN PO ANXIETY / AGITATION; Start 09/04/19 at 15:15 Enoxaparin Sodium (Lovenox 40mg Syringe) 40 mg Q24H SQ Last administered on 09/04/19at 18:06; Start 09/04/19 at 16:00 Enalaprilat (Vasotec Inj) 1.25 mg PRN Q6HRS PRN IVP HYPERTENSION; Start 09/04/19 at 17:30 Metoprolol Tartrate (Lopressor Vial) 10 mg PRN Q6HRS PRN IVP HYPERTENSION; Start 09/04/19 at 17:45 Active Scripts Active Klor-Con M20 (Potassium Chloride) 20 Meq Tab.er.prt 40 Meq PO TIDWMEALS Hydralazine Hcl 25 Mg Tablet 25 Mg PO TID Reported Fibercon (Calcium Polycarbophil) 625 Mg Tablet 625 Mg PO UD EVERY 3 DAYS, PER . DUE 07/06/2019 Acidophilus (Lactobacillus Acidophilus) 1 Each Capsule 1 Cap PO DAILY 14 Days Melatonin 5 Mg Tab.rapdis 5 Mg PO Preservision Areds Tablet (Vit A/Vit C/Vit E/Zinc/Copper) 1 Each Tablet 2 Tab PO DAILY 30 Days Fludrocortisone Acetate 0.1 Mg Tablet 0.1 Mg PO TID Spironolactone 25 Mg Tablet 0.5 Tab PO DAILY Metamucil (Psyllium Husk) 0.52 Gm Capsule 1 Cap PO DAILY Dicyclomine Hcl 10 Mg Capsule 1 Cap PO PRN TID PRN Cyanocobalamin Injection (Cyanocobalamin (Vitamin B-12)) 1,000 Mcg/1 Ml Vial 1 Ml IM QMONTH Carbidopa-Levodopa 25-100 Tab (Carbidopa/Levodopa) 1 Each Tablet 2 Tab PO TID Levothyroxine Sodium 75 Mcg Tablet 1 Tab PO DAILY Aspir 81 (Aspirin) 81 Mg Tablet.dr 1 Tab PO DAILY Atorvastatin Calcium 10 Mg Tablet 10 Mg PO HS Vitals/I & O Vital Sign - Last 24 Hours 09/04/19 09/04/19 09/04/19 09/04/19 11:48 13:00 14:00 15:00 Temp 98.1 98.1 Pulse 74 76 86 81 Resp 20 20 20 20 B/P (MAP) 196/99 (131) Pulse Ox 99 97 99 O2 Delivery Room Air 09/04/19 09/04/19 09/04/19 09/04/19 16:00 18:03 19:00 20:00 Temp 97.5 97.5 Pulse 73 73 84 Resp 20 18 B/P (MAP) 172/101 175/104 (127) Pulse Ox 99 95 O2 Delivery Room Air Room Air 09/04/19 09/04/19 09/05/19 09/05/19 20:34 23:00 03:00 07:20 Temp 97.9 98.0 97.6 97.9 98.0 97.6 Pulse 124 99 81 Resp 18 18 18 B/P (MAP) 178/104 150/102 (118) 144/97 (113) 122/86 (98) Pulse Ox 95 97 94 O2 Delivery Room Air Room Air Room Air 09/05/19 09/05/19 08:00 08:56 Pulse 81 B/P (MAP) 122/86 O2 Delivery Room Air Intake and Output 09/04/19 09/04/19 09/05/19 15:00 23:00 07:00 Intake Total 500 ml 0 ml 50 ml Output Total 400 ml 800 ml Balance 100 ml 0 ml -750 ml LIAM BEE MD September 05, 2019 11:31
[2019-09-05] MEDS: ENOXAPARIN 40 MG/0.4 ML SYRINGE. SQ SCH (15:38)
--- NOTE | 2019-09-05 16:54 | NUR ---
PATIENT HAD THREE EPISODES OF DIARRHEA SENT SAMPLE TO LAB FOR C-DIFF TESTING. PATIENT'S ORTHOSTATICS : 153/90 SUPINE, SITTING 140/93, STANDING 104/72. PATIENT IS ALERT AND ORIENTED X2, HE DISPLAYS FREQUENT EPISODES OF FORGETFULNESS AND CONFUSION. PATIENT IS ABLE TO AMBULATE WITH 1-PERSON ASSIST. PATIENT HAS REPORTED THAT HE FEELS DIZZY WHEN AMBULATING.
--- NOTE | 2019-09-05 19:03 | PDOC2 ---
NEUROLOGY CONSULT Date of Admission Date of Admission Full Report Dictated Patient is a pleasant 83-year-old man who presented with presyncope and worsening confusion. His notes difficulty with memory and word finding for at least 4 months. This has been especially bad in the last week or 2. He seems to be sundowning. I suspect underlying dementia. He has a diagnosis of Parkinson's disease for the last 4-5 years. He is on Sinemet. Currently his examination did not reveal bradykinesia, cogwheel rigidity or resting tremor. He did have very small steps and was unstable with walking. When walking he did have an irregular tremor of his right hand which stopped when I had him stop walking and calm down. I am not certain he has Parkinson's disease but he does have an appointment for evaluation by Dr. Cruz in the near future. DATE: 09/05/19 TIME: 19:00 Current Medications Current Medications Current Medications Sodium Chloride 500 ml @ 500 mls/hr 1X ONCE IV Last administered on 09/04/19at 12:24; Start 09/04/19 at 12:00; Stop 09/04/19 at 12:59; Status DC Lorazepam (Ativan Inj) 0.5 mg 1X ONCE IVP Last administered on 09/04/19at 15:30; Start 09/04/19 at 14:45; Stop 09/04/19 at 14:46; Status DC Ondansetron HCl (Zofran) 4 mg PRN Q8HRS PRN IV NAUSEA/VOMITING; Start 09/04/19 at 15:00; Stop 09/05/19 at 14:59; Status DC Acetaminophen (Tylenol) 650 mg PRN Q4HRS PRN PO FEVER > 100.3'F; Start 09/04/19 at 15:00; Stop 09/05/19 at 14:59; Status DC Aspirin (Ecotrin) 81 mg DAILY PO Last administered on 09/05/19at 08:52; Start 09/05/19 at 09:00 Atorvastatin Calcium (Lipitor) 10 mg HS PO Last administered on 09/04/19at 20:33; Start 09/04/19 at 21:00 Carbidopa/Levodopa (Sinemet 25/100) 2 tab TID PO Last administered on 09/05/19at 13:29; Start 09/04/19 at 16:00 Cyanocobalamin (Vitamin B-12) 1,000 mcg QMONTH IM ; Start 10/04/19 at 09:00 Dicyclomine HCl (Bentyl) 10 mg PRN TID PRN PO DIARRHEA; Start 09/04/19 at 15:15 Fludrocortisone Acetate (Florinef) 0.1 mg TID PO Last administered on 09/05/19at 13:29; Start 09/04/19 at 16:30 Hydralazine HCl (Apresoline) 25 mg TID PO Last administered on 09/05/19at 13:31; Start 09/04/19 at 16:30 Levothyroxine Sodium (Synthroid) 75 mcg DAILY06 PO ; Start 09/05/19 at 06:00 Potassium Chloride (Klor-Con) 40 meq TIDWMEALS PO Last administered on 09/05/19 at 17:26; Start 09/04/19 at 17:00 Spironolactone (Aldactone) 12.5 mg DAILY PO Last administered on 09/05/19at 08:51; Start 09/04/19 at 16:30 Non-Formulary Medication (L.acid/L.casei/ B.bif/B.philip/Fos (Probiotic Blend Capsule)) 1 cap DAILY PO ; Start 09/05/19 at 09:00; Status UNV Lactobacillus Rhamnosus (Culturelle) 1 cap BID PO Last administered on 09/05/19at 08:52; Start 09/04/19 at 21:00 Loperamide HCl (Imodium) 2 mg PRN Q15MIN PRN PO DIARRHEA; Start 09/04/19 at 16:15 Psyllium Hydrophilic Mucilloid (Metamucil Fiber Packet) 1 pkt DAILY PO Last administered on 09/05/19at 09:34; Start 09/05/19 at 09:00 Multivitamins/ Minerals (I-Quita) 1 tab DAILY PO Last administered on 09/05/19at 09:34; Start 09/05/19 at 09:00 Non-Formulary Medication (Vit A/Vit C/Vit E/Zinc/Copper (Preservision Areds Tablet)) 2 tab DAILY PO ; Start 09/05/19 at 09:00; Status UNV Ondansetron HCl (Zofran) 4 mg PRN Q4HRS PRN IV NAUSEA/VOMITING; Start 09/04/19 at 15:15 Zolpidem Tartrate (Ambien) 5 mg PRN QHS PRN PO INSOMNIA Last administered on 09/04/19at 23:54; Start 09/04/19 at 15:15 Acetaminophen (Tylenol) 650 mg PRN Q4HRS PRN PO TEMP OVER 100.4F OR MILD PAIN; Start 09/04/19 at 15:15 Docusate Sodium (Colace) 100 mg PRN BID PRN PO CONSTIPATION; Start 09/04/19 at 15:15 Albuterol Sulfate (Ventolin Neb Soln) 2.5 mg PRN Q4HRS PRN NEB SHORTNESS OF BREATH; Start 09/04/19 at 15:15 Guaifenesin (Robitussin) 200 mg PRN Q4HRS PRN PO COUGH; Start 09/04/19 at 15:15 Lorazepam (Ativan) 0.5 mg PRN Q4HRS PRN PO ANXIETY / AGITATION; Start 09/04/19 at 15:15 Enoxaparin Sodium (Lovenox 40mg Syringe) 40 mg Q24H SQ Last administered on 09/05/19at 15:38; Start 09/04/19 at 16:00 Enalaprilat (Vasotec Inj) 1.25 mg PRN Q6HRS PRN IVP HYPERTENSION; Start 09/04/19 at 17:30 Metoprolol Tartrate (Lopressor Vial) 10 mg PRN Q6HRS PRN IVP HYPERTENSION; Start 09/04/19 at 17:45 Active Scripts Active Klor-Con M20 (Potassium Chloride) 20 Meq Tab.er.prt 40 Meq PO TIDWMEALS Hydralazine Hcl 25 Mg Tablet 25 Mg PO TID Reported Fibercon (Calcium Polycarbophil) 625 Mg Tablet 625 Mg PO UD EVERY 3 DAYS, PER . DUE 07/06/2019 Acidophilus (Lactobacillus Acidophilus) 1 Each Capsule 1 Cap PO DAILY 14 Days Melatonin 5 Mg Tab.rapdis 5 Mg PO Preservision Areds Tablet (Vit A/Vit C/Vit E/Zinc/Copper) 1 Each Tablet 2 Tab PO DAILY 30 Days Fludrocortisone Acetate 0.1 Mg Tablet 0.1 Mg PO TID Spironolactone 25 Mg Tablet 0.5 Tab PO DAILY Metamucil (Psyllium Husk) 0.52 Gm Capsule 1 Cap PO DAILY Dicyclomine Hcl 10 Mg Capsule 1 Cap PO PRN TID PRN Cyanocobalamin Injection (Cyanocobalamin (Vitamin B-12)) 1,000 Mcg/1 Ml Vial 1 Ml IM QMONTH Carbidopa-Levodopa 25-100 Tab (Carbidopa/Levodopa) 1 Each Tablet 2 Tab PO TID Levothyroxine Sodium 75 Mcg Tablet 1 Tab PO DAILY Aspir 81 (Aspirin) 81 Mg Tablet.dr 1 Tab PO DAILY Atorvastatin Calcium 10 Mg Tablet 10 Mg PO HS Allergies Allergies: Coded Allergies: meperidine (Verified Allergy, Intermediate, 05/26/19) tolerates fentanyl Vitals VITALS Vital Signs Date Time Temp Pulse Resp B/P (MAP) Pulse Ox O2 Delivery O2 Flow Rate FiO2 09/05/19 15:27 98.2 68 20 136/76 (96) 94 Room Air 98.2 Labs Labs Laboratory Tests Test 09/04/19 11:51 09/04/19 12:15 Urine Collection Type Unknown Urine Color Yellow Urine Clarity Clear Urine pH 7.0 (<5.0-8.0) Urine Specific [place] <=1.005 (1.000-1.030) Urine Protein Negative mg/dL (NEG-TRACE) Urine Glucose (UA) Negative mg/dL (NEG) Urine Ketones (Stick) Negative mg/dL (NEG) Urine Blood Negative (NEG) Urine Nitrite Negative (NEG) Urine Bilirubin Negative (NEG) Urine Urobilinogen Dipstick 0.2 mg/dL (0.2 mg/dL) Urine Leukocyte Esterase Negative (NEG) Urine RBC 0 /HPF (0-2) Urine WBC 0 /HPF (0-4) Urine Squamous Epithelial Cells Few /LPF Urine Bacteria 0 /HPF (0-FEW) White Blood Count 9.6 x10^3/uL (4.0-11.0) Red Blood Count 5.16 x10^6/uL (4.30-5.70) Hemoglobin 16.1 g/dL (13.0-17.5) Hematocrit 47.2 % (39.0-53.0) Mean Corpuscular Volume 91 fL (79-100) Mean Corpuscular Hemoglobin 31 pg (25-35) Mean Corpuscular Hemoglobin Concent 34 g/dL (31-37) Red Cell Distribution Width 15.4 % (11.5-14.5) Platelet Count 159 x10^3/uL (140-400) Neutrophils (%) (Auto) 48 % (31-73) Lymphocytes (%) (Auto) 46 % (24-48) Monocytes (%) (Auto) 5 % (0-9) Eosinophils (%) (Auto) 1 % (0-3) Basophils (%) (Auto) 0 % (0-3) Neutrophils # (Auto) 4.6 x10^3/uL (1.8-7.7) Lymphocytes # (Auto) 4.4 x10^3/uL (1.0-4.8) Monocytes # (Auto) 0.5 x10^3/uL (0.0-1.1) Eosinophils # (Auto) 0.1 x10^3/uL (0.0-0.7) Basophils # (Auto) 0.0 x10^3/uL (0.0-0.2) Sodium Level 142 mmol/L (136-145) Potassium Level 3.7 mmol/L (3.5-5.1) Chloride Level 103 mmol/L (98-107) Carbon Dioxide Level 27 mmol/L (21-32) Anion Gap 12 (6-14) Blood Urea Nitrogen 9 mg/dL (8-26) Creatinine 1.0 mg/dL (0.7-1.3) Estimated GFR (Cockcroft-Gault) 71.2 BUN/Creatinine Ratio 9 (6-20) Glucose Level 118 mg/dL (70-99) Calcium Level 8.7 mg/dL (8.5-10.1) Magnesium Level 1.9 mg/dL (1.8-2.4) Total Bilirubin 0.9 mg/dL (0.2-1.0) Aspartate Amino Transf (AST/SGOT) 16 U/L (15-37) Alanine Aminotransferase (ALT/SGPT) 12 U/L (16-63) Alkaline Phosphatase 51 U/L (46-116) Troponin I Quantitative 0.024 ng/mL (0.000-0.055) Total Protein 5.8 g/dL (6.4-8.2) Albumin 3.6 g/dL (3.4-5.0) Albumin/Globulin Ratio 1.6 (1.0-1.7) Thyroid Stimulating Hormone (TSH) 3.870 uIU/mL (0.358-3.74) Free Thyroxine 1.46 ng/dL (0.76-1.46) SERJIO GORDON MD September 05, 2019 19:02
[2019-09-05] MEDS ORDERED: IV 1/2 NORMAL SALINE 500 ML IV ONE (19:15)
[2019-09-05] MEDS: ATORVASTATIN CALCIUM 10 MG TABLET. PO SCH (21:04)
[2019-09-05] MEDS: ZOLPIDEM 5 MG TABLET. PO PRN (21:13)
--- NOTE | 2019-09-05 21:47 | CONS ---
DATE OF CONSULTATION: 09/05/2019 REFERRING PHYSICIAN: Dr. Sana Eli. REASON FOR CONSULTATION: Encephalopathy. HISTORY OF PRESENT ILLNESS: The patient is an 83-year-old man who presented with dizziness and presyncope as well as confusion. I spoke with his on the phone who has been to him for the last 8 years. He was diagnosed with Parkinson disease about 4-5 years ago. He has only seen a neurologist twice. He has tremor primarily when he is walking. He does not have tremor when sitting or lying. He has some difficulty with walking and takes very small steps. notes that he has had word finding difficulty and memory impairment for the last 4 months. He has worsened in the last week with the level of confusion. He seems to fatigue at night and become more confused. He was admitted with very high blood pressures. PAST MEDICAL HISTORY: 1. Coronary artery disease. 2. Hypertension. 3. Hyperlipidemia. 4. Prostate cancer. 5. Hypothyroidism. 6. Dysautonomia. 7. Pacemaker. 8. Appendectomy. 9. Cholecystectomy. 10. Coronary artery bypass graft. 11. Colon resection. ALLERGIES: MEPERIDINE. MEDICATIONS PRIOR TO ADMISSION: Aspirin 81 mg, atorvastatin 10 mg, FiberCon, levodopa/carbidopa 25/100 two tablets 3 times a day, vitamin B12 IM monthly, dicyclomine 10 mg as needed, Florinef 0.1 mg 3 times per day, hydralazine 25 mg 3 times per day, acidophilus, levothyroxine 75 mcg, melatonin 5 mg, potassium chloride 40 mEq 3 times a day, Metamucil, spironolactone 25 mg tablets, 0.5 tablet daily and multivitamin. FAMILY HISTORY: Coronary artery disease. SOCIAL HISTORY: He is . He quit smoking and drinking about 30 years ago. He is retired. REVIEW OF SYSTEMS: He does not complain of any headache. He has very impaired hearing and usually uses bilateral hearing aids. He does not complain of dizziness normally, but was feeling lightheaded and fainty prior to admission. He has not had difficulty swallowing. He does not have chest or abdominal pain. He does not complain of shortness of breath, cough or cold. Does not complain of numbness or focal weakness. He normally does not use an assistive device to get around. He has had confusion. Does not have any psychiatric concerns. PHYSICAL EXAMINATION: VITAL SIGNS: The blood pressure was 136/76, pulse 68, respirations 20, temperature 98.2 degrees Fahrenheit. Oximetry was 94% on room air. He was extremely orthostatic with a standing blood pressure going down to 104/72. GENERAL: He was alert, awake and cooperative. He had word finding difficulties. Attention and concentration was impaired. He had memory loss. He was oriented to place and year, but not month. He appeared well groomed and well nourished. NEUROLOGIC: Examination of the cranial nerves revealed visual brasher were full to confrontation. Extraocular movements were intact. The eyes were conjugate. Pursuit movements were smooth and saccadic eye movements were without dysmetria. Pupils are 3 mm. Facial sensation was intact. The muscles of mastication and facial expression were powerful symmetrically. Hearing was intact to finger rub. The palate arched symmetrically and the tongue was midline. Sternocleidomastoid and trapezius were powerful. Muscle bulk and tone was normal. There was no arm or leg drift. The power was full and symmetric. There was no resting tremor. Even with augmentation maneuvers, there was no rigidity. With distraction, there was no tremor. Reflexes were 2/4 and symmetric in the upper and lower extremities. Toes were not upgoing. Coordination testing with [id number], [id number], fine motor and rapid alternating movements was well performed. There was no bradykinesia. Sensory exam was intact to pain, light touch, proprioception, graphesthesia, cold thermal and vibration. There was no extinction to double simultaneous stimulation. Gait was normal base. He was unsteady. His steps were small and especially with taking a turn, he took very rapid tiny steps that destabilized him. When he was walking and stressed with the walking, he would get an irregular shaking of the right arm. Once I had him stop and I supported his balance the tremor stopped immediately. NECK: Auscultation of the carotid arteries did not reveal a bruit. HEART: Rhythm is regular, without a murmur. EXTREMITIES: Peripheral pulses were symmetric in the hands. There was no edema or cyanosis. LABORATORY RESULTS: CBC was performed on 09/04/2019 revealing a normal white blood cell count, hemoglobin, hematocrit and platelet count. Chemistries were performed on 09/04/2019 revealing normal electrolytes, BUN, creatinine and GFR at 71.2. Glucose was elevated at 118. Calcium and magnesium were normal. Liver enzymes were not elevated. Troponin was not elevated. Total protein was low at 5.8 and albumin normal at 3.6. TSH was elevated at 3.870 with a T4 free at 1.46. Urinalysis was negative. DIAGNOSTIC RESULTS: CT scan of the brain revealed a small left cerebral convexity, subdural hematoma, which is decreased in its adjacent mass effect and rightward shift when compared to the study of 06/09/2019. There was moderate chronic small vessel disease, which was unchanged. There was no acute hemorrhage or stroke noted. IMPRESSION: The patient is an 83-year-old man who has had a number of months of cognitive loss. I suspect it has actually perhaps been longer, but not noticed. He looks to me like he has an underlying dementia with a superimposed encephalopathic process. He has been diagnosed with Parkinson's. His gait is certainly very small steps and unstable, but he really does not have resting tremor, cogwheel rigidity or bradykinesia. It is possible that the Parkinson disease is being effectively treated and not seeing the symptoms or that it was misdiagnosed. He does have an appointment with Dr. Kaushik HERCULES for further evaluation. He may need a slow taper of Sinemet to see if in fact this disease can be confirmed. I will leave this to the discretion of his strategic sourcing consultant. He does have very labile blood pressures and orthostasis. The orthostasis likely contributes to the presyncope. I am not certain what is contributing to the current encephalopathy. I do not see evidence of underlying infection or major metabolic disturbance. I do not see evidence for seizure. RECOMMENDATIONS: He should work with physical and occupational therapy to see if his gait can be more stabilized. We need to work on nutritional status and fluid intake. I appreciate being involved in his care. SERJIO GORDON MD DR: ANALI/jewels JOB#: [id number] / [id number]
[2019-09-06] VITALS (8 sets, daily range): BP systolic 144–188; BP diastolic 80–98
[2019-09-06] MEDS: LEVOTHYROXINE 75 MCG TABLET PO SCH (05:58)
--- NOTE | 2019-09-06 07:06 | EKG ---
[facility] [address] [place] [address] Test Date: 2019-09-04 Test Time: 12:14:55 Pat Name: ALIREZA RENEE Department: Room: 4 Gender: M Hospital Product Specialist: : [id number] Requested By: ALEXANDRO MORRIS Order Number: [id number] Reading MD: Farzad Olmos Measurements Intervals Tennyson Rate: 75 P: 90 AK: 192 QRS: -8 QRSD: 126 T: 75 QT: 446 QTc: 501 Interpretive Statements SINUS RHYTHM VENTRICULAR PREMATURE COMPLEX(ES) LEFTWARD AXIS QRS(T) CONTOUR ABNORMALITY CONSIDER INFERIOR MYOCARDIAL DAMAGE ABNORMAL ECG RI6.01 Electronically Signed On 09-06-2019 7:51:41 CDT by Farzad Olmos
[2019-09-06] MEDS: POTASSIUM CHLORIDE 20 MEQ TABLET.ER. PO SCH ×3 (08:24→16:42)
[2019-09-06] MEDS: FLUDROCORTISONE 0.1 MG TABLET PO SCH ×3 (08:24→20:54)
[2019-09-06] MEDS: ASPIRIN ENTERIC COATED 81 MG TABLET.DR. PO SCH (08:24)
[2019-09-06] MEDS: CARBIDOPA/LEVODOPA 25/100MG TABLET PO SCH ×3 (08:24→20:54)
[2019-09-06] MEDS: MULTIVITAMIN I-VITE TABLET. PO SCH (08:24)
[2019-09-06] MEDS: SPIRONOLACTONE 25 MG TABLET PO SCH (08:25)
[2019-09-06] MEDS: PSYLLIUM HUSK (SUGAR FREE) 1 PKT PACKET PO SCH ×2 (08:25→08:45)
[2019-09-06] MEDS: hydrALAZINE 25 MG TABLET PO SCH ×3 (08:25→20:54)
[2019-09-06] MEDS: LACTOBACILLUS RHAMNOSUS GG 1 CAPSULE. PO SCH ×2 (08:25→20:54)
--- NOTE | 2019-09-06 08:37 | PDOC ---
PROGRESS NOTES Chief Complaint Chief Complaint A/P: Hypertensive crisis - with DBP > 110, given 1x labetalol. Hold midodrine. Can use hydralazine prn Acute Encephalopathy secondary to the above Hypokalemia - his HCO3 is also elevated. This seems it would be due to diuretics. Could be 2/2 florinef, will back off to once daily Recent subdural hematoma with craniotomy on 05/26/2019 - significantly improved on CT head. Parkinson's - cont sinemet Frequent falls - likely 2/2 dysautonomic symptoms 2/2 Parkinsons. Will maintain tele to r/o cardiac cause History of hyper parathyroidism with elevated TSH CAD s/p CABG - stable. Will monitor on tele. cont meds IBS - predominantly diarrhea, continue loperamide Prostate ca - in remission S/p pacer and subsequent removal 2/2 MRSA infection - unclear his arrhythmia history FEN - Cardiac diet PPX - lovenox DNR/DNI Dispo - CVC for above, likely 2 midnights History of Present Illness History of Present Illness Mr Caicedo is a 83 year old M w/ PMHx Parkinson's, CAD s/p CABG, IBS, prostate ca in remission, s/p pacer and subsequent removal 2/2 MRSA infection who presents with concerns for chronic dizziness per spouse. Patient does states patient recently had changes with blood pressure medication and that daily blood pressures have been the 200/100 range. He denies any headache, SOB, CP, swelling or BIGGS. He does have dizziness is worse with position change and has had 2 reported syncopal episodes in the past week per his , with no LOC. He did sustain a large head injury April 2019 and underwent craniotomy 05/26/2019 for SDH. He does see [facility] neurology, takes carbidopa/levodopa and actually takes midodrine 10mg TID as well as florinef. BP elevated in ED for some time and potassium notably 2.2 in ED. EKG NSR, bigeminy on telemetry. Admitted for further w/u and care. 09/04: PT and OT, CV following, positive orthostatics, Neuro consulted: underlying dementia with a superimposed encephalopathic process. He has been diagnosed with Parkinson's. He is pleasantly confused today. Still orthostatic. D/W cardiology to stop sp ironolactone. He does not recall the events of the past year I will does not previously remember evaluation for subdural hematoma. Vitals Vitals Vital Signs Date Time Temp Pulse Resp B/P (MAP) Pulse Ox O2 Delivery O2 Flow Rate FiO2 09/06/19 08:25 64 177/90 09/06/19 07:00 97.5 20 95 Room Air 97.5 Physical Exam General: Alert, Cooperative, Other (confused, not well oriented) Lungs: Clear Abdomen: Normal bowel sounds Extremities: No clubbing Skin: No rashes Assessment and Plan Assessmemt and Plan Problems Medical Problems: (1) Generalized weakness Status: Acute (2) Near syncope Status: Acute Comment Review of Relevant I have reviewed the following items maira (where applicable) has been applied. Labs Laboratory Tests Test 09/04/19 11:51 09/04/19 12:15 Urine Collection Type Unknown Urine Color Yellow Urine Clarity Clear Urine pH 7.0 (<5.0-8.0) Urine Specific [place] <=1.005 (1.000-1.030) Urine Protein Negative mg/dL (NEG-TRACE) Urine Glucose (UA) Negative mg/dL (NEG) Urine Ketones (Stick) Negative mg/dL (NEG) Urine Blood Negative (NEG) Urine Nitrite Negative (NEG) Urine Bilirubin Negative (NEG) Urine Urobilinogen Dipstick 0.2 mg/dL (0.2 mg/dL) Urine Leukocyte Esterase Negative (NEG) Urine RBC 0 /HPF (0-2) Urine WBC 0 /HPF (0-4) Urine Squamous Epithelial Cells Few /LPF Urine Bacteria 0 /HPF (0-FEW) White Blood Count 9.6 x10^3/uL (4.0-11.0) Red Blood Count 5.16 x10^6/uL (4.30-5.70) Hemoglobin 16.1 g/dL (13.0-17.5) Hematocrit 47.2 % (39.0-53.0) Mean Corpuscular Volume 91 fL (79-100) Mean Corpuscular Hemoglobin 31 pg (25-35) Mean Corpuscular Hemoglobin Concent 34 g/dL (31-37) Red Cell Distribution Width 15.4 % (11.5-14.5) Platelet Count 159 x10^3/uL (140-400) Neutrophils (%) (Auto) 48 % (31-73) Lymphocytes (%) (Auto) 46 % (24-48) Monocytes (%) (Auto) 5 % (0-9) Eosinophils (%) (Auto) 1 % (0-3) Basophils (%) (Auto) 0 % (0-3) Neutrophils # (Auto) 4.6 x10^3/uL (1.8-7.7) Lymphocytes # (Auto) 4.4 x10^3/uL (1.0-4.8) Monocytes # (Auto) 0.5 x10^3/uL (0.0-1.1) Eosinophils # (Auto) 0.1 x10^3/uL (0.0-0.7) Basophils # (Auto) 0.0 x10^3/uL (0.0-0.2) Sodium Level 142 mmol/L (136-145) Potassium Level 3.7 mmol/L (3.5-5.1) Chloride Level 103 mmol/L (98-107) Carbon Dioxide Level 27 mmol/L (21-32) Anion Gap 12 (6-14) Blood Urea Nitrogen 9 mg/dL (8-26) Creatinine 1.0 mg/dL (0.7-1.3) Estimated GFR (Cockcroft-Gault) 71.2 BUN/Creatinine Ratio 9 (6-20) Glucose Level 118 mg/dL (70-99) Calcium Level 8.7 mg/dL (8.5-10.1) Magnesium Level 1.9 mg/dL (1.8-2.4) Total Bilirubin 0.9 mg/dL (0.2-1.0) Aspartate Amino Transf (AST/SGOT) 16 U/L (15-37) Alanine Aminotransferase (ALT/SGPT) 12 U/L (16-63) Alkaline Phosphatase 51 U/L (46-116) Troponin I Quantitative 0.024 ng/mL (0.000-0.055) Total Protein 5.8 g/dL (6.4-8.2) Albumin 3.6 g/dL (3.4-5.0) Albumin/Globulin Ratio 1.6 (1.0-1.7) Thyroid Stimulating Hormone (TSH) 3.870 uIU/mL (0.358-3.74) Free Thyroxine 1.46 ng/dL (0.76-1.46) Medications Current Medications Sodium Chloride 500 ml @ 500 mls/hr 1X ONCE IV Last administered on 09/04/19 12:24; Start 09/04/19 at 12:00; Stop 09/04/19 at 12:59; Status DC Lorazepam (Ativan Inj) 0.5 mg 1X ONCE IVP Last administered on 09/04/19at 15:30; Start 09/04/19 at 14:45; Stop 09/04/19 at 14:46; Status DC Ondansetron HCl (Zofran) 4 mg PRN Q8HRS PRN IV NAUSEA/VOMITING; Start 09/04/19 at 15:00; Stop 09/05/19 at 14:59; Status DC Acetaminophen (Tylenol) 650 mg PRN Q4HRS PRN PO FEVER > 100.3'F; Start 09/04/19 at 15:00; Stop 09/05/19 at 14:59; Status DC Aspirin (Ecotrin) 81 mg DAILY PO Last administered on 09/06/19 08:24; Start 09/05/19 at 09:00 Atorvastatin Calcium (Lipitor) 10 mg HS PO Last administered on 09/05/19at 21:04; Start 09/04/19 at 21:00 Carbidopa/Levodopa (Sinemet 25/100) 2 tab TID PO Last administered on 09/06/19 08:24; Start 09/04/19 at 16:00 Cyanocobalamin (Vitamin B-12) 1,000 mcg QMONTH IM ; Start 10/04/19 at 09:00 Dicyclomine HCl (Bentyl) 10 mg PRN TID PRN PO DIARRHEA; Start 09/04/19 at 15:15 Fludrocortisone Acetate (Florinef) 0.1 mg TID PO Last administered on 09/06/19 08:24; Start 09/04/19 at 16:30 Hydralazine HCl (Apresoline) 25 mg TID PO Last administered on 09/06/19 08:25; Start 09/04/19 at 16:30 Levothyroxine Sodium (Synthroid) 75 mcg DAILY06 PO Last administered on 09/06/19 05:58; Start 09/05/19 at 06:00 Potassium Chloride (Klor-Con) 40 meq TIDWMEALS PO Last administered on 5/11/20at 08:24; Start 09/04/19 at 17:00 Spironolactone (Aldactone) 12.5 mg DAILY PO Last administered on 09/06/19 08:25; Start 09/04/19 at 16:30 Non-Formulary Medication (L.acid/L.casei/ B.bif/B.philip/Fos (Probiotic Blend Capsule)) 1 cap DAILY PO ; Start 09/05/19 at 09:00; Status UNV Lactobacillus Rhamnosus (Culturelle) 1 cap BID PO Last administered on 09/06/19at 08:25; Start 09/04/19 at 21:00 Loperamide HCl (Imodium) 2 mg PRN Q15MIN PRN PO DIARRHEA; Start 09/04/19 at 16:15 Psyllium Hydrophilic Mucilloid (Metamucil Fiber Packet) 1 pkt DAILY PO Last administered on 09/06/19at 08:25; Start 09/05/19 at 09:00 Multivitamins/ Minerals (I-Quita) 1 tab DAILY PO Last administered on 09/06/19at 08:24; Start 09/05/19 at 09:00 Non-Formulary Medication (Vit A/Vit C/Vit E/Zinc/Copper (Preservision Areds Tablet)) 2 tab DAILY PO ; Start 09/05/19 at 09:00; Status UNV Ondansetron HCl (Zofran) 4 mg PRN Q4HRS PRN IV NAUSEA/VOMITING; Start 09/04/19 at 15:15 Zolpidem Tartrate (Ambien) 5 mg PRN QHS PRN PO INSOMNIA Last administered on 09/05/19at 21:13; Start 09/04/19 at 15:15 Acetaminophen (Tylenol) 650 mg PRN Q4HRS PRN PO TEMP OVER 100.4F OR MILD PAIN; Start 09/04/19 at 15:15 Docusate Sodium (Colace) 100 mg PRN BID PRN PO CONSTIPATION; Start 09/04/19 at 15:15 Albuterol Sulfate (Ventolin Neb Soln) 2.5 mg PRN Q4HRS PRN NEB SHORTNESS OF BREATH; Start 09/04/19 at 15:15 Guaifenesin (Robitussin) 200 mg PRN Q4HRS PRN PO COUGH; Start 09/04/19 at 15:15 Lorazepam (Ativan) 0.5 mg PRN Q4HRS PRN PO ANXIETY / AGITATION; Start 09/04/19 at 15:15 Enoxaparin Sodium (Lovenox 40mg Syringe) 40 mg Q24H SQ Last administered on 09/05/19at 15:38; Start 09/04/19 at 16:00 Enalaprilat (Vasotec Inj) 1.25 mg PRN Q6HRS PRN IVP HYPERTENSION; Start 09/04/19 at 17:30 Metoprolol Tartrate (Lopressor Vial) 10 mg PRN Q6HRS PRN IVP HYPERTENSION; Start 09/04/19 at 17:45 Sodium Chloride 500 ml @ 250 mls/hr 1X ONCE IV Last administered on 09/05/19at 21:00; Start 09/05/19 at 19:15; Stop 09/05/19 at 21:14; Status DC Active Scripts Active Klor-Con M20 (Potassium Chloride) 20 Meq Tab.er.prt 40 Meq PO TIDWMEALS Hydralazine Hcl 25 Mg Tablet 25 Mg PO TID Reported Fibercon (Calcium Polycarbophil) 625 Mg Tablet 625 Mg PO UD EVERY 3 DAYS, PER . DUE 07/06/2019 Acidophilus (Lactobacillus Acidophilus) 1 Each Capsule 1 Cap PO DAILY 14 Days Melatonin 5 Mg Tab.rapdis 5 Mg PO Preservision Areds Tablet (Vit A/Vit C/Vit E/Zinc/Copper) 1 Each Tablet 2 Tab PO DAILY 30 Days Fludrocortisone Acetate 0.1 Mg Tablet 0.1 Mg PO TID Spironolactone 25 Mg Tablet 0.5 Tab PO DAILY Metamucil (Psyllium Husk) 0.52 Gm Capsule 1 Cap PO DAILY Dicyclomine Hcl 10 Mg Capsule 1 Cap PO PRN TID PRN Cyanocobalamin Injection (Cyanocobalamin (Vitamin B-12)) 1,000 Mcg/1 Ml Vial 1 Ml IM QMONTH Carbidopa-Levodopa 25-100 Tab (Carbidopa/Levodopa) 1 Each Tablet 2 Tab PO TID Levothyroxine Sodium 75 Mcg Tablet 1 Tab PO DAILY Aspir 81 (Aspirin) 81 Mg Tablet.dr 1 Tab PO DAILY Atorvastatin Calcium 10 Mg Tablet 10 Mg PO HS Vitals/I & O Vital Sign - Last 24 Hours 5/02/1409/05/19 09/05/19 09/05/19 08:56 11:38 12:32 12:32 Temp 98.0 98.0 Pulse 81 71 82 77 Resp 16 B/P (MAP) 122/86 145/90 (108) 140/93 (109) 153/90 (111) Pulse Ox 96 O2 Delivery Room Air 09/05/19 09/05/19 09/05/19 09/05/19 12:33 13:31 15:27 19:00 Temp 98.2 98.2 Pulse 77 77 68 77 Resp 20 20 B/P (MAP) 104/72 (83) 104/72 136/76 (96) 165/89 (114) Pulse Ox 94 96 O2 Delivery Room Air Room Air 09/05/19 09/05/19 09/05/19 09/06/19 20:00 21:07 23:02 03:05 Temp 97.5 97.5 97.5 97.5 Pulse 77 75 80 Resp 18 20 B/P (MAP) 165/89 134/72 (92) 169/97 (121) Pulse Ox 95 95 O2 Delivery Room Air Room Air Room Air 09/06/19 09/06/19 07:00 08:25 Temp 97.5 97.5 Pulse 64 64 Resp 20 B/P (MAP) 177/90 (119) 177/90 Pulse Ox 95 O2 Delivery Room Air Intake and Output 09/05/19 09/05/19 09/06/19 15:00 23:00 07:00 Intake Total 450 ml 700 ml Output Total 300 ml 250 ml 250 ml Balance 150 ml 450 ml -250 ml DEONDRE FRANKLIN MD September 06, 2019 08:37
--- NOTE | 2019-09-06 10:38 | PDOC ---
Provider Note Provider Note S: No new events. BP labile. Seen by neurology Remains confused. O: VS reviewed. BP labile. No changes to exam. Still with gait instability a/o to person only. Labs reviewed. Meds reviewed. Impression: 1. Dysautonomia leading to labile BP's RECS 1. Stop Spironolactone. 2. Continue PT/OT. Consider hospice. Thanks. D/w Dr. Upton. Pls call with questions. PRAFUL MEDINA MD September 06, 2019 10:38
--- NOTE | 2019-09-06 15:18 | NUR ---
SS following for discharge planning. SS reviewed pt chart and discussed with pt RN. Pt is from home with spouse and is currently on room air. PT/OT ordered and recommended longterm unit. SS discussed discharge planning and longterm unit with pt and pt's spouse. Pt and spouse declined longterm unit but were agreeable to home healthcare with no preference of company. SS will continue to follow for discharge planning.
[2019-09-06] MEDS: ENOXAPARIN 40 MG/0.4 ML SYRINGE. SQ SCH (16:41)
--- NOTE | 2019-09-06 17:19 | PDOC ---
PROGRESS NOTES Assessment Assessment IMPRESSION: Left SDH, subacute? Dizziness. Pre-syncope. Autonomic instability. Hypertension. Orthostatic hypotension. Tremors. Memory decline. PD? or MSA? Gait instability. Hypothyroidism. Pacemaker. RECOMMENDATIONS/PLAN: Treat medical diseases. Lab: see orders. FU with [facility]. PT/OT. SUBJECTIVE: No complaints. PAST MEDICAL AND SURGICAL HISTORY: Coronary artery disease. Hypertension. Hyperlipidemia. Prostate cancer. Hypothyroidism. Dysautonomia. Pacemaker. Appendectomy. Cholecystectomy. Coronary artery bypass graft. Colon resection. ALLERGIES: MEPERIDINE. FAMILY HISTORY: Coronary artery disease. SOCIAL HISTORY: He is . He quit smoking and drinking about 30 years ago. He is retired. REVIEW OF SYSTEMS: He does not complain of any headache. He has very impaired hearing and usually uses bilateral hearing aids. He does not complain of dizziness normally, but was feeling lightheaded and fainty prior to admission. He has not had difficulty swallowing. He does not have chest or abdominal pain. He does not complain of shortness of breath, cough or cold. Does not complain of numbness or focal weakness. He normally does not use an assistive device to get around. He has had confusion. Does not have any psychiatric concerns. MEDICATIONS: Refer to [facility] PHYSICAL EXAMINATION: General appearance in subacute distress. HEENT: Normocephalic and nontraumatic. Eyes, nose, ears, and throat are unremarkable. Hearing decrease. Neck is supple. No lymphadenopathy. No Crepitus. Cardiovascular: S1, S2, regular rate and rhythm. Pulmonary: Clear to auscultation bilaterally. Abdomen: Bowel sounds are positive. Extremities: No rash, lesions, or edema. No restriction of range of motion NEUROLOGICAL EXAMINATION: Awake. Not oriented to time, place and person. PERRL. EOMI. CN: no focal findings. Muscle tone: right UE mildly increased? The rest is within normal. Muscle strength: 5- DTR: 2 Plantar reflex: Neutral response bilaterally Gait: not examined in bed. Sensory exam: no abnormal findings. No cerebellar signs elicited. F-T-N test not performed due to not follow commands. Objective Objective Vital Signs Date Time Temp Pulse Resp B/P (MAP) Pulse Ox O2 Delivery O2 Flow Rate FiO2 09/06/19 17:00 144/86 (105) 09/06/19 16:54 87 09/06/19 15:59 97.4 18 96 Room Air 97.4 Intake and Output 09/06/19 07:00 Intake Total 1150 ml Output Total 800 ml Balance 350 ml Intake Oral 650 ml IV Total 500 ml Output Urine Total 250 ml Stool Total 550 ml # Voids 1 # Bowel Movements 5 Vitals Signs Vitals VS - Last 72 Hours, by Label Date Time Temp Pulse Resp B/P (MAP) Pulse Ox O2 Delivery O2 Flow Rate FiO2 09/06/19 17:00 144/86 (105) 09/06/19 16:54 87 162/92 (115) 09/06/19 15:59 97.4 75 18 188/98 (128) 96 Room Air 97.4 09/06/19 14:48 67 148/80 09/06/19 11:49 97.6 67 18 148/80 (102) 96 Room Air 97.6 09/06/19 08:28 Room Air 09/06/19 08:25 64 177/90 09/06/19 07:00 97.5 64 20 177/90 (119) 95 Room Air 97.5 09/06/19 03:05 97.5 80 20 169/97 (121) 95 Room Air 97.5 09/05/19 23:02 97.5 75 18 134/72 (92) 95 Room Air 97.5 09/05/19 21:07 77 165/89 09/05/19 20:00 Room Air 09/05/19 19:00 77 20 165/89 (114) 96 Room Air 09/05/19 15:27 98.2 68 20 136/76 (96) 94 Room Air 98.2 09/05/19 13:31 77 104/72 09/05/19 12:33 77 104/72 (83) 09/05/19 12:32 77 153/90 (111) 09/05/19 12:32 82 140/93 (109) 09/05/19 11:38 98.0 71 16 145/90 (108) 96 Room Air 98.0 09/05/19 08:56 81 122/86 09/05/19 08:00 Room Air 09/05/19 07:20 97.6 81 18 122/86 (98) 94 Room Air 97.6 Medication Medications Current Medications Cyanocobalamin (Vitamin B-12) 1,000 mcg QMONTH IM ; Start 10/04/19 at 09:00 Sodium Chloride 500 ml @ 250 mls/hr 1X ONCE IV Last administered on 09/05/19at 21:00; Start 09/05/19 at 19:15; Stop 09/05/19 at 21:14; Status DC Comment Review of Relevant I have reviewed the following items maira (where applicable) has been applied. MARITA PUTNAM MD September 06, 2019 17:19
[2019-09-06] MEDS: ATORVASTATIN CALCIUM 10 MG TABLET. PO SCH (20:54)
[2019-09-07] MEDS: ZOLPIDEM 5 MG TABLET. PO PRN (00:40)
[2019-09-07] MEDS: LEVOTHYROXINE 75 MCG TABLET PO SCH (06:41)
[2019-09-07 07:00] VITALS: BP 157/94
[2019-09-07] MEDS: POTASSIUM CHLORIDE 20 MEQ TABLET.ER. PO SCH (08:38)
[2019-09-07] MEDS: ASPIRIN ENTERIC COATED 81 MG TABLET.DR. PO SCH (08:38)
[2019-09-07] MEDS: CARBIDOPA/LEVODOPA 25/100MG TABLET PO SCH (08:38)
[2019-09-07] MEDS: MULTIVITAMIN I-VITE TABLET. PO SCH (08:38)
[2019-09-07] MEDS: LACTOBACILLUS RHAMNOSUS GG 1 CAPSULE. PO SCH (08:38)
[2019-09-07] MEDS: FLUDROCORTISONE 0.1 MG TABLET PO SCH (08:38)
[2019-09-07] MEDS: hydrALAZINE 25 MG TABLET PO SCH (08:39)
[2019-09-07] MEDS: PSYLLIUM HUSK (SUGAR FREE) 1 PKT PACKET PO SCH (08:43)
--- NOTE | 2019-09-07 09:48 | SNU/HH DC ---
DISCHARGE WITH HOME HEALTH DISCHARGE INFORMATION: Discharge Date: September 07, 2019 Final Diagnosis: Problems Medical Problems: (1) Generalized weakness Status: Acute (2) Near syncope Status: Acute Condition on Discharge: Stable CODE STATUS: Code Status: Full HOME HEALTH: Face to Face: I certify this patient is under my care and that I, or a nurse practitioner or physician's hospital nursing assistant working with me, had a face to face encounter that meets the physician face to face encounter requirements with this patient on 09/07/2019. Medical Complications: Dementia, Falls, HTN Retirement For: Assess & Educate Safety, Medication Management RN For Eval/Treatment: Yes Physical Therapy For: Evalulation/Treatment Occupational Therapy For: Evaluation/Treatment Home Health Aide For: Self-care WINDOWS SERVER SPECIALIST For: Community Resources Pt Meets Homebound Status: Unsteady balance w/ amb,, Frequent falls w/ injury, Poor cognition, Psychological condition POST DISCHARGE ORDERS: Activity Instructions for Disc: Activity as tolerated Weight Bearing Status after Di: As tolerated DIET AFTER DISCHARGE: Regular CHECKS AFTER DISCHARGE: Checks after discharge: Check blood press - daily, Check your Temp as needed TREATMENT/EQUIPMENT ORDERS: Adaptive Equipment Issued: None CERTIFICATION STATEMENT: Certification Statement: Certification Statement: Based on the above finding, I certify that this patient is confined to the home and needs intermittent halfway care, physical therapy and/or speech therapy, or continues to need occupational therapy.~ This patient is under my care, and I have initiated the establishment of the plan of care.~ This patient will be followed by myself or a community physician who will periodically review the plan of care. Home Meds Active Scripts Potassium Chloride (KLOR-CON M20) 20 Meq Tab.er.prt, 40 MEQ PO TIDWMEALS for low K, #120 TAB.SR Prov:LAQUITA ROJAS MD 03/30/19 Hydralazine Hcl (HYDRALAZINE HCL) 25 Mg Tablet, 25 MG PO TID for htn, #90 TAB Prov:LAQUITA ROJAS MD 03/30/19 Reported Medications Calcium Polycarbophil (FIBERCON) 625 Mg Tablet, 625 MG PO UD, TAB EVERY 3 DAYS, PER . DUE 07/06/2019 09/04/19 Lactobacillus Acidophilus (ACIDOPHILUS) 1 Each Capsule, 1 CAP PO DAILY for 14 D ays, #14 CAP 0 Refills 09/04/19 Melatonin (MELATONIN) 5 Mg Tab.rapdis, 5 MG PO, TAB 09/04/19 Vit A/Vit C/Vit E/Zinc/Copper (PRESERVISION AREDS TABLET) 1 Each Tablet, 2 TAB PO DAILY for supplement for 30 Days, #60 TAB 0 Refills 05/26/19 Fludrocortisone Acetate (FLUDROCORTISONE ACETATE) 0.1 Mg Tablet, 0.1 MG PO TID for steroid to reduce inflammation, TAB 05/26/19 Psyllium Husk (METAMUCIL) 0.52 Gm Capsule, 1 CAP PO DAILY for bowels 03/27/19 Dicyclomine Hcl (DICYCLOMINE HCL) 10 Mg Capsule, 1 CAP PO PRN TID PRN for DIARRHEA 03/27/19 Cyanocobalamin (Vitamin B-12) (CYANOCOBALAMIN INJECTION) 1,000 Mcg/1 Ml Vial, 1 ML IM QMONTH for supplement 03/27/19 Carbidopa/Levodopa (CARBIDOPA-LEVODOPA 25-100 TAB) 1 Each Tablet, 2 TAB PO TID for parkinson's, TAB 03/27/19 Levothyroxine Sodium (LEVOTHYROXINE SODIUM) 75 Mcg Tablet, 1 TAB PO DAILY, #30 TAB 5 Refills 06/30/15 Aspirin (ASPIR 81) 81 Mg Tablet.dr, 1 TAB PO DAILY, #30 TAB 5 Refills 06/30/15 Atorvastatin Calcium (ATORVASTATIN CALCIUM) 10 Mg Tablet, 10 MG PO HS for FOR CHOLESTEROL, #30 TAB 0 Refills 06/30/15 Discontinued Reported Medications Spironolactone (SPIRONOLACTONE) 25 Mg Tablet, 0.5 TAB PO DAILY for DIURETIC, #90 TAB 1 Refill 03/30/19 DEONDRE FRANKLIN MD September 07, 2019 09:48
--- NOTE | 2019-09-07 09:56 | PDOC ---
PROGRESS NOTES Chief Complaint Chief Complaint A/P: Hypertensive crisis - with DBP > 110, given 1x labetalol. Hold midodrine. Can use hydralazine prn. Actually improved back on home meds Acute Encephalopathy secondary to the above Hypokalemia - his HCO3 is also elevated. This seems it would be due to diuretics. Could be 2/2 florinef, will back off to once daily Recent subdural hematoma with craniotomy on 05/26/2019 - significantly improved on CT head. Parkinson's - cont sinemet Frequent falls - likely 2/2 dysautonomic symptoms 2/2 Parkinsons. Will maintain tele to r/o cardiac cause History of hyper parathyroidism with elevated TSH CAD s/p CABG - stable. Will monitor on tele. cont meds IBS - predominantly diarrhea, continue loperamide Prostate ca - in remission S/p pacer and subsequent removal 2/2 MRSA infection - unclear his arrhythmia history FEN - Cardiac diet PPX - lovenox DNR/DNI Dispo - CVC for above, likely 2 midnights History of Present Illness History of Present Illness Mr Caicdeo is a 83 year old M w/ PMHx Parkinson's, CAD s/p CABG, IBS, prostate ca in remission, s/p pacer and subsequent removal 2/2 MRSA infection who presents with concerns for chronic dizziness per spouse. Patient does states patient recently had changes with blood pressure medication and that daily blood pressures have been the 200/100 range. He denies any headache, SOB, CP, swelling or BIGGS. He does have dizziness is worse with position change and has had 2 reported syncopal episodes in the past week per his , with no LOC. He did sustain a large head injury April 2019 and underwent craniotomy 05/26/2019 for SDH. He does see [facility] neurology, takes carbidopa/levodopa and actually takes midodrine 10mg TID as well as florinef. BP elevated in ED for some time and potassium notably 2.2 in ED. EKG NSR, bigeminy on telemetry. Admitted for further w/u and care. 09/04: PT and OT, CV following, positive orthostatics, Neuro consulted: underlying dementia with a superimposed encephalopathic process. He has been diagnosed with Parkinson's. 09/05: He is pleasantly confused today. Still orthostatic. D/W cardiology to stop spironolactone. He does not recall the events of the past year I will does not previously remember evaluation for subdural hematoma. He is still pleasantly confused, a little more steady today with physical and occupational therapy despite recommendations to go skilled I have discussed with his that he would probably not do well in a retirement facility and would thrive more at home with home health she agrees. Vitals Vitals Vital Signs Date Time Temp Pulse Resp B/P (MAP) Pulse Ox O2 Delivery O2 Flow Rate FiO2 09/07/19 08:39 89 157/94 09/07/19 07:00 98.1 17 95 Room Air 98.1 Physical Exam General: Alert, Cooperative, Other (confused, not well oriented) Lungs: Clear Abdomen: Normal bowel sounds Extremities: No clubbing Skin: No rashes Assessment and Plan Assessmemt and Plan Problems Medical Problems: (1) Generalized weakness Status: Acute (2) Near syncope Status: Acute Comment Review of Relevant I have reviewed the following items maira (where applicable) has been applied. Labs Laboratory Tests Test 09/05/19 14:33 Clostridium difficile Toxin B Gene Negative (NEGATIVE) Medications Current Medications Sodium Chloride 500 ml @ 500 mls/hr 1X ONCE IV Last administered on 09/04/19at 12:24; Start 09/04/19 at 12:00; Stop 09/04/19 at 12:59; Status DC Lorazepam (Ativan Inj) 0.5 mg 1X ONCE IVP Last administered on 09/04/19at 15:30; Start 09/04/19 at 14:45; Stop 09/04/19 at 14:46; Status DC Ondansetron HCl (Zofran) 4 mg PRN Q8HRS PRN IV NAUSEA/VOMITING; Start 09/04/19 at 15:00; Stop 09/05/19 at 14:59; Status DC Acetaminophen (Tylenol) 650 mg PRN Q4HRS PRN PO FEVER > 100.3'F; Start 09/04/19 at 15:00; Stop 09/05/19 at 14:59; Status DC Aspirin (Ecotrin) 81 mg DAILY PO Last administered on 09/07/19at 08:38; Start 09/05/19 at 09:00 Atorvastatin Calcium (Lipitor) 10 mg HS PO Last administered on 09/06/19at 20:54; Start 09/04/19 at 21:00 Carbidopa/Levodopa (Sinemet 25/100) 2 tab TID PO Last administered on 09/07/19 08:38; Start 09/04/19 at 16:00 Cyanocobalamin (Vitamin B-12) 1,000 mcg QMONTH IM ; Start 10/04/19 at 09:00 Dicyclomine HCl (Bentyl) 10 mg PRN TID PRN PO STOMACH CRAMPING; Start 09/04/19 at 15:15 Fludrocortisone Acetate (Florinef) 0.1 mg TID PO Last administered on 09/07/19at 08:38; Start 09/04/19 at 16:30 Hydralazine HCl (Apresoline) 25 mg TID PO Last administered on 09/07/19 08:39; Start 09/04/19 at 16:30 Levothyroxine Sodium (Synthroid) 75 mcg DAILY06 PO Last administered on 09/07/19 06:41; Start 09/05/19 at 06:00 Potassium Chloride (Klor-Con) 40 meq TIDWMEALS PO Last administered on 09/07/19at 08:38; Start 09/04/19 at 17:00 Spironolactone (Aldactone) 12.5 mg DAILY PO Last administered on 09/06/19at 08:25; Start 09/04/19 at 16:30; Stop 09/06/19 at 10:46; Status DC Non-Formulary Medication (L.acid/L.casei/ B.bif/B.philip/Fos (Probiotic Blend Capsule)) 1 cap DAILY PO ; Start 09/05/19 at 09:00; Status UNV Lactobacillus Rhamnosus (Culturelle) 1 cap BID PO Last administered on 09/07/19at 08:38; Start 09/04/19 at 21:00 Loperamide HCl (Imodium) 2 mg PRN Q15MIN PRN PO DIARRHEA; Start 09/04/19 at 16:15 Psyllium Hydrophilic Mucilloid (Metamucil Fiber Packet) 1 pkt DAILY PO Last administered on 09/05/19at 09:34; Start 09/05/19 at 09:00 Multivitamins/ Minerals (I-Quita) 1 tab DAILY PO Last administered on 09/07/19at 08:38; Start 09/05/19 at 09:00 Non-Formulary Medication (Vit A/Vit C/Vit E/Zinc/Copper (Preservision Areds Tablet)) 2 tab DAILY PO ; Start 09/05/19 at 09:00; Status UNV Ondansetron HCl (Zofran) 4 mg PRN Q4HRS PRN IV NAUSEA/VOMITING; Start 09/04/19 at 15:15 Zolpidem Tartrate (Ambien) 5 mg PRN QHS PRN PO INSOMNIA Last administered on 09/07/19at 00:40; Start 09/04/19 at 15:15 Acetaminophen (Tylenol) 650 mg PRN Q4HRS PRN PO TEMP OVER 100.4F OR MILD PAIN; Start 09/04/19 at 15:15 Docusate Sodium (Colace) 100 mg PRN BID PRN PO CONSTIPATION; Start 09/04/19 at 15:15 Albuterol Sulfate (Ventolin Neb Soln) 2.5 mg PRN Q4HRS PRN NEB SHORTNESS OF BREATH; Start 09/04/19 at 15:15 Guaifenesin (Robitussin) 200 mg PRN Q4HRS PRN PO COUGH; Start 09/04/19 at 15:15 Lorazepam (Ativan) 0.5 mg PRN Q4HRS PRN PO ANXIETY / AGITATION; Start 09/04/19 at 15:15 Enoxaparin Sodium (Lovenox 40mg Syringe) 40 mg Q24H SQ Last administered on 09/06/19at 16:41; Start 09/04/19 at 16:00 Enalaprilat (Vasotec Inj) 1.25 mg PRN Q6HRS PRN IVP HYPERTENSION, 1ST CHOICE; Start 09/04/19 at 17:30 Metoprolol Tartrate (Lopressor Vial) 10 mg PRN Q6HRS PRN IVP HYPERTENSION, 2ND CHOICE; Start 09/04/19 at 17:45 Sodium Chloride 500 ml @ 250 mls/hr 1X ONCE IV Last administered on 09/05/19at 21:00; Start 09/05/19 at 19:15; Stop 09/05/19 at 21:14; Status DC Active Scripts Active Klor-Con M20 (Potassium Chloride) 20 Meq Tab.er.prt 40 Meq PO TIDWMEALS Hydralazine Hcl 25 Mg Tablet 25 Mg PO TID Reported Fibercon (Calcium Polycarbophil) 625 Mg Tablet 625 Mg PO UD EVERY 3 DAYS, PER . DUE 07/06/2019 Acidophilus (Lactobacillus Acidophilus) 1 Each Capsule 1 Cap PO DAILY 14 Days Melatonin 5 Mg Tab.rapdis 5 Mg PO Preservision Areds Tablet (Vit A/Vit C/Vit E/Zinc/Copper) 1 Each Tablet 2 Tab PO DAILY 30 Days Fludrocortisone Acetate 0.1 Mg Tablet 0.1 Mg PO TID Metamucil (Psyllium Husk) 0.52 Gm Capsule 1 Cap PO DAILY Dicyclomine Hcl 10 Mg Capsule 1 Cap PO PRN TID PRN Cyanocobalamin Injection (Cyanocobalamin (Vitamin B-12)) 1,000 Mcg/1 Ml Vial 1 Ml IM QMONTH Carbidopa-Levodopa 25-100 Tab (Carbidopa/Levodopa) 1 Each Tablet 2 Tab PO TID Levothyroxine Sodium 75 Mcg Tablet 1 Tab PO DAILY Aspir 81 (Aspirin) 81 Mg Tablet.dr 1 Tab PO DAILY Atorvastatin Calcium 10 Mg Tablet 10 Mg PO HS Vitals/I & O Vital Sign - Last 24 Hours 09/06/19 09/06/19 09/06/19 09/06/19 11:49 14:48 15:59 16:54 Temp 97.6 97.4 97.6 97.4 Pulse 67 67 75 87 Resp 18 18 B/P (MAP) 148/80 (102) 148/80 188/98 (128) 162/92 (115) Pulse Ox 96 96 O2 Delivery Room Air Room Air 09/06/19 09/06/19 09/06/19 09/06/19 17:00 19:58 20:00 20:54 Temp 98.3 98.3 Pulse 88 88 Resp 16 B/P (MAP) 144/86 (105) 162/91 (114) 162/91 Pulse Ox 95 O2 Delivery Room Air Room Air 09/06/19 09/07/19 09/07/19 09/07/19 23:54 03:37 07:00 08:39 Temp 97.4 98.1 97.4 98.1 Pulse 89 90 89 89 Resp 16 16 17 B/P (MAP) 158/94 (115) 157/94 (115) 157/94 Pulse Ox 95 95 O2 Delivery Room Air Room Air Room Air Intake and Output 09/06/19 09/06/19 09/07/19 15:00 23:00 07:00 Intake Total 300 ml 200 ml Output Total 100 ml Balance 300 ml 100 ml DEONDRE FRANKLIN MD September 07, 2019 09:56
--- NOTE | 2019-09-07 09:58 | PDOC3 ---
Discharge Summary Visit Information Date of Admission: September 04, 2019 Date of Discharge: September 07, 2019 Admitting Diagnosis: Near syncope Final Diagnosis Problems Medical Problems: (1) Generalized weakness Status: Acute (2) Near syncope Status: Acute Brief Hospital Course Allergies Allergies Coded Allergies Type Severity Reaction Last Updated Verified meperidine Allergy Intermediate 05/26/19 Yes Vital Signs Vital Signs Date Time Temp Pulse Resp B/P (MAP) Pulse Ox O2 Delivery O2 Flow Rate FiO2 09/07/19 08:39 89 157/94 09/07/19 07:00 98.1 17 95 Room Air 98.1 Lab Results Laboratory Tests Test 09/05/19 14:33 Clostridium difficile Toxin B Gene Negative (NEGATIVE) Brief Hospital Course Mr Caicedo is a 83 year old M w/ PMHx Parkinson's, CAD s/p CABG, IBS, prostate ca in remission, s/p pacer and subsequent removal 2/2 MRSA infection who presents with concerns for chronic dizziness per spouse. Patient does states patient recently had changes with blood pressure medication and that daily blood pressures have been the 200/100 range. He denies any headache, SOB, CP, swelling or BIGGS. He does have dizziness is worse with position change and has had 2 reported syncopal episodes in the past week per his , with no LOC. He did sustain a large head injury April 2019 and underwent craniotomy 05/26/2019 for SDH. He does see [facility] neurology, takes carbidopa/levodopa and actually takes midodrine 10mg TID as well as florinef. BP elevated in ED for some time and potassium notably 2.2 in ED. EKG NSR, bigeminy on telemetry. Admitted for further w/u and care with cardiology, neurology consultation. 09/04: PT and OT, CV following, positive orthostatics, Neuro consulted: underlying dementia with a superimposed encephalopathic process. He has been diagnosed with Parkinson's. 09/05: He is pleasantly confused today. Still orthostatic. D/W cardiology to stop spironolactone. He does not recall the events of the past year I will does not previously remember evaluation for subdural hematoma. He is still pleasantly confused, a little more steady today with physical and occupational therapy despite recommendations to go skilled I have discussed with his that he would probably not do well in a senior living facility and would thrive more at home with home health she agrees. Problem list: Hypertensive crisis - with DBP > 110, given 1x labetalol. Hold midodrine. Can use hydralazine prn. Actually improved back on home meds Acute Encephalopathy secondary to the above Hypokalemia - his HCO3 is also elevated. This seems it would be due to diuretics. Could be 2/2 florinef, will back off to once daily Recent subdural hematoma with craniotomy on 05/26/2019 - significantly improved on CT head. Parkinson's - cont sinemet Frequent falls - likely 2/2 dysautonomic symptoms 2/2 Parkinsons. Will maintain tele to r/o cardiac cause History of hyper parathyroidism with elevated TSH CAD s/p CABG - stable. Will monitor on tele. cont meds IBS - predominantly diarrhea, continue loperamide Prostate ca - in remission S/p pacer and subsequent removal 2/2 MRSA infection - unclear his arrhythmia history Dizziness. Pre-syncope. Autonomic instability. Orthostatic hypotension. Tremors. Memory decline. Gait instability. Hypothyroidism. Greater than 30 minutes spent on d/c Discharge Information Condition at Discharge: Improved Follow Up: Weeks Disposition/Orders: D/C to Home w/ HH Scheduled Aspirin (Aspir 81) 81 Mg Tablet.dr, 1 TAB PO DAILY, #30 Ref 5 (Reported) Entered as Reported by: DONNIE SERVIN on 06/30/151799 Last Action: Continued on 09/04/191524 by NOEL RAMIREZ MD Atorvastatin Calcium (Atorvastatin Calcium) 10 Mg Tablet, 10 MG PO HS for FOR CHOLESTEROL, #30 Ref 0 (Reported) Entered as Reported by: DONNIE SERVIN on 06/30/151799 Last Action: Continued on 09/04/191524 by NOEL RAMIREZ MD Calcium Polycarbophil (Fibercon) 625 Mg Tablet, 625 MG PO UD, (Reported) EVERY 3 DAYS, PER . DUE 07/06/2019 Entered as Reported by: SAQIB NAYAK on 09/04/191511 Last Action: New Order on 09/04/191511 by SAQIB NAYAK Carbidopa/Levodopa (Carbidopa-Levodopa 25-100 Tab) 1 Each Tablet, 2 TAB PO TID for parkinson's, (Reported) Entered as Reported by: OLGA GUTIERREZ on 03/27/19 180 Last Action: Continued on 09/04/191525 by NOEL RAMIREZ MD Cyanocobalamin (Vitamin B-12) (Cyanocobalamin Injection) 1,000 Mcg/1 Ml Vial, 1 ML IM QMONTH for supplement, (Reported) Entered as Reported by: OLGA GUTIERREZ on 03/27/191817 Last Action: Continued on 09/04/191525 by NOEL RAMIREZ MD Fludrocortisone Acetate (Fludrocortisone Acetate) 0.1 Mg Tablet, 0.1 MG PO TID for steroid to reduce inflammation, (Reported) Entered as Reported by: RAQUEL PERDOMO on 05/26/19 1115 Last Action: Continued on 09/04/191525 by NOEL RAMIREZ MD Hydralazine Hcl (Hydralazine Hcl) 25 Mg Tablet, 25 MG PO TID for htn, #90 Prescribed by: LAQUITA ROJAS on 03/30/19 0854 Last Action: Continued on 09/04/191525 by NOEL RAMIREZ MD Lactobacillus Acidophilus (Acidophilus) 1 Each Capsule, 1 CAP PO DAILY for 14 Days, #14 Ref 0 (Reported) Entered as Reported by: SAQIB NAYAK on 09/04/191507 Last Action: Converted on 09/04/191525 by NOEL RAMIREZ MD Levothyroxine Sodium (Levothyroxine Sodium) 75 Mcg Tablet, 1 TAB PO DAILY, #30 Ref 5 (Reported) Entered as Reported by: DONNIE SERVIN on 06/30/15 1800 Last Action: Continued on 09/04/191525 by NOEL RAMIREZ MD Potassium Chloride (Klor-Con M20) 20 Meq Tab.er.prt, 40 MEQ PO TIDWMEALS for low K, #120 Prescribed by: LAQUITA ROJAS on 03/30/19 0854 Last Action: Continued on 09/04/191525 by NOEL RAMIREZ MD Psyllium Husk (Metamucil) 0.52 Gm Capsule, 1 CAP PO DAILY for bowels, (Reported) Entered as Reported by: OLGA GUTIERREZ on 03/27/191817 Last Action: Converted on 09/04/191525 by NOEL RAMIREZ MD Vit A/Vit C/Vit E/Zinc/Copper (Preservision Areds Tablet) 1 Each Tablet, 2 TAB PO DAILY for supplement for 30 Days, #60 Ref 0 (Reported) Entered as Reported by: RAQUEL PERDOMO on 05/26/19 1118 Last Action: Converted on 09/04/191525 by NOEL RAMIREZ MD Scheduled PRN Dicyclomine Hcl (Dicyclomine Hcl) 10 Mg Capsule, 1 CAP PO PRN TID PRN for DIARRHEA, (Reported) Entered as Reported by: OLGA GUTIERREZ on 03/27/19 1818 Last Action: Continued on 09/04/191525 by NOEL RAMIREZ MD Miscellaneous Medications Melatonin (Melatonin) 5 Mg Tab.rapdis, 5 MG PO, (Reported) Entered as Reported by: SAQIB NAYAK on 09/04/19 150 Last Action: Reviewed on 09/04/191506 by SAQIB NAYAK Discontinued Medications Spironolactone (Spironolactone) 25 Mg Tablet, 0.5 TAB PO DAILY for DIURETIC, #90 Ref 1 (Reported) Entered as Reported by: Emanuel Cardenas on 03/30/19 1712 Last Action: Continued on 09/04/191525 by MD RIGOBERTO MORRELL CHRISTOPHER S MD September 07, 2019 09:58
[2019-09-07 11:00] VITALS: BP_SYST 136; BP_SYST 155; BP_DIAS 77; BP_DIAS 89
--- NOTE | 2019-09-07 11:09 | NUR ---
Spoke with patient's on the phone with discharge instructions. Answered questions and concerns. Verbalized understanding. Set up with home health and to follow up with primary doctor in couple of weeks.
--- NOTE | 2019-09-07 11:12 | PDOC ---
BRADEN,ISABELA MODESTO 09/07/19 1112: CARDIO Progress Notes Date and Time Date of Service 09/07/19 Time of Evaluation 1050 Subjective Subjective: No Chest Pain, No shortness of breath, No Palpitations Vitals Vitals Vital Signs Date Time Temp Pulse Resp B/P (MAP) Pulse Ox O2 Delivery O2 Flow Rate FiO2 09/07/19 08:39 89 157/94 09/07/19 07:40 Room Air 09/07/19 07:00 98.1 17 95 98.1 Weight Weight [ ] Input and Output Intake and Output Intake and Output 09/07/19 07:00 Intake Total 500 ml Output Total 100 ml Balance 400 ml Intake Oral 500 ml Output Urine Total 100 ml # Voids 9 # Bowel Movements 5 Physical Exam HEENT: Neck Supple W Full Motion Chest: Symmetric LUNGS: Clear to Auscultation Heart: S1S2, RRR Abdomen: Soft N/T Neurology: alert, follow commands Assessment Assessment 1. Labile blood pressure secondary to autonomic dysfunction; better controlled overall 2. Acute hypertensive encephalopathy 3. Recent SDH s/p craniotomy 4. Parkinson's Disease 5. Frequent falls; no acute events on tele. 6. CAD s/p CABG. Stable CP free. 7 . Hypokalemia; recurrent. replaced 8. Hyperlipidemia Recommendations Continue current antiHTN therapy Consider discontinuing florinef and resuming midodrine given persistent significant hypokalemia. Supportive care PRAFUL MEDINA MD 09/08/19 1040: CARDIO Progress Notes Plan Plan Pt. seen and examined. 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 Supportive care. Poor intermediate designer prognosis. Consider hospice abram ISABELA FELICIANO APRN September 07, 2019 11:12 PRAFUL MEDINA MD September 08, 2019 10:40
[2019-10-04] MEDS ORDERED: CYANOCOBALAMIN (VITAMIN B-12) 1,000 MCG/ML VIAL IM SCH (09:00)
== END 2019-09-07 11:40 | disposition home health service (06) | DRG 304 ==
LOC: ER 11:48 → 6 SOUTH 15:58
PROVIDERS: ADMIT Internal Medicine; ATTEND Internal Medicine
DX: I16.0 Hypertensive urgency (principal); G93.41 Metabolic encephalopathy; G20 Parkinson's disease; E03.9 Hypothyroidism, unspecified; E78.5 Hyperlipidemia, unspecified; E87.6 Hypokalemia; F02.80 Dementia in other diseases classified elsewhere, unspecified severity, without behavioral disturbance, psychotic disturbance, mood disturbance, and anxiety; I10 Essential (primary) hypertension; I25.10 Atherosclerotic heart disease of native coronary artery without angina pectoris; I95.1 Orthostatic hypotension; K58.9 Irritable bowel syndrome, unspecified; R62.7 Adult failure to thrive; Z66 Do not resuscitate; Z79.899 Other long term (current) drug therapy; Z82.49 Family history of ischemic heart disease and other diseases of the circulatory system; Z85.46 Personal history of malignant neoplasm of prostate; Z86.14 Personal history of Methicillin resistant Staphylococcus aureus infection; Z87.891 Personal history of nicotine dependence; Z90.49 Acquired absence of other specified parts of digestive tract; Z95.0 Presence of cardiac pacemaker; Z95.1 Presence of aortocoronary bypass graft; Z87.440 Personal history of urinary (tract) infections; Z88.8 Allergy status to other drugs, medicaments and biological substances; T50.2X5A Adverse effect of carbonic-anhydrase inhibitors, benzothiadiazides and other diuretics, initial encounter; Y92.89 Other specified places as the place of occurrence of the external cause
CPT/HCPCS: 36415; 70450; 80053; 81001; 83735; 84439; 84443; 84484; 85025; 87493; 93005; J1650; J2060; J3490; J7040; 97116-GP; 97530-GP; 97535-GO; G0378